=== PATIENT | female | born 1955 | race Caucasian/White ===

== ENCOUNTER → 2020-02-18 | Outpatient (CLI) | payer MEDICARE ==
--- NOTE | 2020-02-18 17:04 | XR ---
EXAMINATION TYPE: XR chest 2V DATE OF EXAM: 02/18/2020 COMPARISON: NONE HISTORY: Abnormal d-dimer chest pain TECHNIQUE: 2 views FINDINGS: Heart is borderline enlarged. There is no heart failure. Lungs are clear of infiltrate. Tho racic aorta shows some atheromatous change. Bones appear osteopenic. IMPRESSION: No active cardiopulmonary disease.
--- NOTE | 2020-02-18 18:44 | NM ---
EXAMINATION TYPE: NM pul vent and perfuse DATE OF EXAM: 02/18/2020 COMPARISON: NONE HISTORY: TECHNIQUE: Utilizing inhalation of 36.3 mCi Tc 99m DTPA aerosol and intravenous injection of 4.8 mCi of Tc 99m MAA, ventilation and perfusion images are acquired post injection in multiple projections. FINDINGS: There is bilateral upper lobe ventilation abnormality near the lung apices consistent with airway dis ease. I see no significant segmental or subsegmental perfusion defect. The remainder of exam is unrem arkable. IMPRESSION: Exam shows evidence of airway disease in the upper lobes. There is a low probability of pulmonary emb olism.
== END | disposition home or self-care (01) ==
LOC: RADNMMAIN 16:33
PROVIDERS: ATTEND Nurse Practitioner Adult Health
DX: R79.1 Abnormal coagulation profile (principal); R06.00 Dyspnea, unspecified
CPT/HCPCS: 71046; 78582; A9540; A9567

== ENCOUNTER 2022-01-05 09:27 | Day surgery (SDC) | payer MEDICARE ==
[2022-01-04 10:55] VITALS: BMI 25.2
[~2022-01-05 09:27] MED LIST: ACETAMINOPHEN TAB 500 MG TAB PO PRN; DEXAMETHASONE SOD PHOSPHATE 4 MG/ML 1 ML VIAL IV ONE; HEPARIN SODIUM,PORCINE/PF 5,000 UNIT/0.5 ML SYRINGE SQ PRN; LACTATED RINGERS 1,000 ML IV SCH; MIDAZOLAM 2 MG/2 ML VIAL IV PRN; ONDANSETRON 4 MG/2 ML VIAL IVP ONE
[2022-01-05 10:42] LABS: Albumin 4.7 g/dL (3.5-5.0); Calcium 10.4 mg/dL (8.4-10.2); Total Bilirubin 0.8 mg/dL (0.2-1.3); Total Protein 7.7 g/dL (6.3-8.2)
[2022-01-05 10:43] LABS: Potassium 5.1 mmol/L (3.5-5.1)
--- NOTE | 2022-01-05 11:02 | P.GSHP ---
History of Present Illness H&P Date: 01/05/22 Chief Complaint: Renal failure 66-year-old female last seen in the office one year ago. Patient with progressive kidney malfunction now requiring dialysis. Patient is here today for dialysis catheter insertion. No known hernias. Past Medical History Past Medical History: CVA/TIA, Deep Vein Thrombosis (DVT), Eye Disorder, Hyperlipidemia, Hypertension, Myocardial Infarction ([place]), Renal Disease, Seizure Disorder Additional Past Medical History / Comment(s): CVA-2018-NO RESIDUAL PROBLEMS. DVT BILAT LEGS. LEGALLY BLIND R/T PLAQUENIL. HX LUPUS. SEIZURE R/T LUPUS-LAST ONE 4-5 YEARS AGO Last Myocardial Infarction Date:: 2016 History of Any Multi-Drug Resistant Organisms: None Reported Past Surgical History: Heart Catheterization With Stent, Tonsillectomy Additional Past Surgical History / Comment(s): SKIN GRAFT FROM RT ARM TO RT LEG. COLONOSCOPY Past Anesthesia/Blood Transfusion Reactions: No Reported Reaction Date of Last Stent Placement:: 2016 Smoking Status: Former smoker - Past Family History Father Family Medical History: Cancer Medications and Allergies Home Medications Medication Instructions Recorded Confirmed Type Allopurinol [Zyloprim] 100 mg PO DAILY 01/04/22 01/05/22 History Aspirin [Adult Low Dose Aspirin EC] 81 mg PO DAILY 01/04/22 01/04/22 History Atorvastatin [Lipitor] 80 mg PO HS 01/04/22 01/05/22 History Carvedilol [Coreg] 25 mg PO BID 01/04/22 01/05/22 History Clopidogrel [Plavix] 75 mg PO DAILY 01/04/22 01/04/22 History Furosemide [Lasix] 40 mg PO DAILY 01/04/22 01/05/22 History Magnesium Oxide 400 mg PO DAILY 01/04/22 01/05/22 History Metoprolol Tartrate [Lopressor] 50 mg PO DAILY 01/04/22 01/05/22 History Sodium Bicarbonate Tab 650 mg PO BID 01/04/22 01/05/22 History calcitrioL [Calcitriol] 0.25 mcg PO DAILY 01/04/22 01/04/22 History cloNIDine 0.1 MG/24HR PATCH 1 patch TRANSDERM MO 01/04/22 01/05/22 History [Catapres-TTS] hydrALAZINE HCL [Apresoline] 75 mg PO TID 01/04/22 01/05/22 History mycophenolate mofetiL [Cellcept] 500 mg PO BID 01/04/22 01/05/22 History Allergies Allergy/AdvReac Type Severity Reaction Status Date / Time carbamazepine [From Tegretol] Allergy Unknown Verified 01/05/22 09:44 gentamicin Allergy Rash/Hives Verified 01/05/22 09:44 hydroxychloroquine Allergy CAUSED Verified 01/05/22 09:44 [From Plaquenil] BLINDNESS vancomycin Allergy Rash/Hives Verified 01/05/22 09:44 Surgical - Exam Vital Signs Temp Pulse Resp BP Pulse Ox 96.9 F L 62 16 161/69 98 01/05/22 09:57 01/05/22 09:57 01/05/22 09:57 01/05/22 09:57 01/05/22 09:57 Physical exam: General: Well-developed, well-nourished HEENT: Normocephalic, sclerae nonicteric Abdomen: Nontender, nondistended Extremities: No edema Neuro: Alert and oriented Results - Labs 01/05/22 10:09 Abnormal Lab Results - Last 24 Hours (Table) 01/05/22 Range/Units 10:09 Carbon Dioxide 21 L (22-30) mmol/L BUN 78 H (7-17) mg/dL Creatinine 6.30 H (0.52-1.04) mg/dL Calcium 10.4 H (8.4-10.2) mg/dL Diabetes panel 01/05/22 Range/Units 10:09 Sodium 139 (137-145) mmol/L Potassium 5.1 (3.5-5.1) mmol/L Chloride 104 (98-107) mmol/L Carbon Dioxide 21 L (22-30) mmol/L BUN 78 H (7-17) mg/dL Creatinine 6.30 H (0.52-1.04) mg/dL Glucose 96 (74-99) mg/dL Calcium 10.4 H (8.4-10.2) mg/dL AST 27 (14-36) U/L ALT 11 (4-34) U/L Alkaline Phosphatase 76 (38-126) U/L Total Protein 7.7 (6.3-8.2) g/dL Albumin 4.7 (3.5-5.0) g/dL Calcium panel 05/06/22 Range/Units 10:09 Calcium 10.4 H (8.4-10.2) mg/dL Albumin 4.7 (3.5-5.0) g/dL Pituitary panel 01/05/22 Range/Units 10:09 Sodium 139 (137-145) mmol/L Potassium 5.1 (3.5-5.1) mmol/L Chloride 104 (98-107) mmol/L Carbon Dioxide 21 L (22-30) mmol/L BUN 78 H (7-17) mg/dL Creatinine 6.30 H (0.52-1.04) mg/dL Glucose 96 (74-99) mg/dL Calcium 10.4 H (8.4-10.2) mg/dL Adrenal panel 01/05/22 Range/Units 10:09 Sodium 139 (137-145) mmol/L Potassium 5.1 (3.5-5.1) mmol/L Chloride 104 (98-107) mmol/L Carbon Dioxide 21 L (22-30) mmol/L BUN 78 H (7-17) mg/dL Creatinine 6.30 H (0.52-1.04) mg/dL Glucose 96 (74-99) mg/dL Calcium 10.4 H (8.4-10.2) mg/dL Total Bilirubin 0.8 (0.2-1.3) mg/dL AST 27 (14-36) U/L ALT 11 (4-34) U/L Alkaline Phosphatase 76 (38-126) U/L Total Protein 7.7 (6.3-8.2) g/dL Albumin 4.7 (3.5-5.0) g/dL Assessment and Plan (1) Renal failure Narrative/Plan: 66-year-old female with renal failure. We'll proceed with dialysis catheter insertion. Risks of bleeding, infection, poor function, leak, abscess, hernia, peritonitis reviewed. She understands and wishes to proceed. Current Visit: Yes Status: Acute Code(s): N19 - UNSPECIFIED KIDNEY FAILURE SNOMED Code(s): 79474912
[2022-01-05] MEDS ORDERED: BUPIVACAINE (PF) 0.25% 30 ML VIAL SQ ONE ×2 (11:05→11:45)
[2022-01-05] MEDS ORDERED: PROPOFOL 10 MG/ML 20 ML VIAL IV ONE (11:12)
[2022-01-05] MEDS ORDERED: MIDAZOLAM 2 MG/2 ML VIAL ONE (11:12)
[2022-01-05] MEDS ORDERED: fentaNYL (PF) 50 MCG/ML 2 ML AMP ONE (11:12)
[2022-01-05] MEDS ORDERED: LIDOCAINE 2% INJ 20 MG/ML (2 ML VIAL) ONE (11:12)
[2022-01-05] MEDS ORDERED: NALOXONE 0.4 MG/ML 1 ML VIAL IV PRN (12:02)
[2022-01-05] MEDS ORDERED: HYDROcodone/APAP 5-325MG 1 EACH TAB PO PRN (12:02)
--- NOTE | 2022-01-05 12:05 | P.OP ---
Date of Procedure: 01/05/22 Procedure(s) Performed: PREOPERATIVE DIAGNOSIS: Renal failure POSTOPERATIVE DIAGNOSIS: Same PROCEDURE: Peritoneal dialysis catheter insertion SURGEON: Arlene EBL: 10 mL ANESTHESIA: Sedation plus local COMPLICATIONS: None OPERATIVE PROCEDURE: The patient was placed in the operative table in the supine position. The abdomen was prepped and draped in usual sterile fashion. A small vertical incision was made in the left periumbilical location. Dissection down through the subcutaneous tissues took place using electrocautery. The anterior rectus was divided vertically using the scalpel. The rectus was bluntly. The posterior rectus was visualized. An 0 Vicryl pursestring was placed. A small opening in the posterior rectus fascia and peritoneum took place using a Metzenbaum scissors. There were no adhesions to the suture that was placed. The pigtail catheter was advanced into the pelvis over a stylette. No resistance was met. The inner cuff was secured to the fascia using the 0 Vicryl pursestring that was placed. The catheter was tunneled to an exit site in the left lateral lower quadrant. The catheter was connected to the 1 L bag of saline and approximated 800 mL of saline was easily introduced into the peritoneal cavity. The fluid was then allowed to evacuate. The majority of the fluid was returned. The anterior rectus fascia was then reapproximated using a running 0 Vicryl stitch. The subcutaneous tissues reprepped using 3-0 Vicryl sutures and the skin using 4-0 Monocryl sutures. The outpatient dialysis adapter was applied to the end of the catheter. Sterile dressings were then applied after skin glue was placed over the incision. DISPOSITION: Stable to recovery room
[2022-01-05] MEDS: HYDROmorphone 0.5 MG/0.5 ML SYRINGE IVP PRN ×3 (12:18→12:41)
[2022-01-05 12:23] VITALS: TEMP 97.1
[2022-01-05 14:23] VITALS: BP 127/68; PULSE 60; RESP 20
== END 2022-01-05 14:21 | disposition home or self-care (01) ==
LOC: OR 09:27
PROVIDERS: ATTEND Surgery
DX: I12.9 Hypertensive chronic kidney disease with stage 1 through stage 4 chronic kidney disease, or unspecified chronic kidney disease (principal); N18.9 Chronic kidney disease, unspecified; E78.00 Pure hypercholesterolemia, unspecified; E55.9 Vitamin D deficiency, unspecified; I25.10 Atherosclerotic heart disease of native coronary artery without angina pectoris; E05.90 Thyrotoxicosis, unspecified without thyrotoxic crisis or storm; R32 Unspecified urinary incontinence; E78.5 Hyperlipidemia, unspecified; I25.2 Old myocardial infarction; G40.909 Epilepsy, unspecified, not intractable, without status epilepticus; H54.8 Legal blindness, as defined in USA; Z87.891 Personal history of nicotine dependence; Z86.73 Personal history of transient ischemic attack (TIA), and cerebral infarction without residual deficits; Z79.899 Other long term (current) drug therapy; Z79.02 Long term (current) use of antithrombotics/antiplatelets; Z88.1 Allergy status to other antibiotic agents; Z86.718 Personal history of other venous thrombosis and embolism; Z95.5 Presence of coronary angioplasty implant and graft; Z90.89 Acquired absence of other organs; Z80.9 Family history of malignant neoplasm, unspecified
CPT/HCPCS: 80053; 49421; J2250; J1100; J0690; J2405; J3010; J2704; J1170; J1644; J2001

== ENCOUNTER 2023-04-01 19:47 | Emergency (ER) | payer MEDICARE ==
[2023-04-01 19:55] VITALS: RESP 16
--- NOTE | 2023-04-01 21:13 | ED ---
Recheck HPI - General Chief Complaint: Recheck/Abnormal Lab/Rx Stated Complaint: Dialysis port leaking Time Seen by Provider: 04/01/23 20:00 Source: patient, EMS Mode of arrival: EMS Limitations: no limitations - History of Present Illness Initial Comments: 67-year-old female presenting with chief complaint of blocked dialysis port. Patient had port for dialysis placed on Saturday at . Her last dialysis was done on Thursday 03/29. Patient normally receives daily dialysis at [facility]. They were unable to conduct dialysis today. Patient states that the area feels generally sore. No fevers or chills. No difficulty breathing. No abdominal pain, nausea, vomiting. - Related Data Home Medications Medication Instructions Recorded Confirmed Aspirin [Adult Low Dose Aspirin EC] 81 mg PO DAILY 01/04/22 01/04/22 Atorvastatin [Lipitor] 80 mg PO HS 01/04/22 01/05/22 Clopidogrel [Plavix] 75 mg PO DAILY 01/04/22 01/04/22 Furosemide [Lasix] 40 mg PO DAILY 01/04/22 01/05/22 Magnesium Oxide 400 mg PO DAILY 01/04/22 01/05/22 Metoprolol Tartrate [Lopressor] 50 mg PO DAILY 01/04/22 01/05/22 Sodium Bicarbonate Tab 650 mg PO BID 01/04/22 01/05/22 allopurinoL [Zyloprim] 100 mg PO DAILY 01/04/22 01/05/22 calcitrioL [Calcitriol] 0.25 mcg PO DAILY 01/04/22 01/04/22 carvediloL [Coreg] 25 mg PO BID 01/04/22 01/05/22 cloNIDine 0.1 MG/24HR PATCH 1 patch TRANSDERM MO 01/04/22 01/05/22 [Catapres-TTS] hydrALAZINE HCL [Apresoline] 75 mg PO TID 01/04/22 01/05/22 mycophenolate mofetiL [Cellcept] 500 mg PO BID 01/04/22 01/05/22 Previous Rx's Medication Instructions Recorded HYDROcodone/APAP 5-325MG [[place] 1 tab PO Q6HR PRN 3 Days #6 tab 01/05/22 5-325] Allergies Allergy/AdvReac Type Severity Reaction Status Date / Time carbamazepine [From Tegretol] Allergy Unknown Verified 01/05/22 09:44 gentamicin Allergy Rash/Hives Verified 01/05/22 09:44 hydroxychloroquine Allergy CAUSED Verified 01/05/22 09:44 [From Plaquenil] BLINDNESS vancomycin Allergy Rash/Hives Verified 01/05/22 09:44 Review of Systems ROS Statement: Those systems with pertinent positive or pertinent negative responses have been documented in the HPI. ROS Other: All systems not noted in ROS Statement are negative. Past Medical History Past Medical History: CVA/TIA, Deep Vein Thrombosis (DVT), Eye Disorder, Hyperlipidemia, Hypertension, Myocardial Infarction ([place]), Renal Disease, Seizure Disorder Additional Past Medical History / Comment(s): CVA-2018-NO RESIDUAL PROBLEMS. DVT BILAT LEGS. LEGALLY BLIND R/T PLAQUENIL. HX LUPUS. SEIZURE R/T LUPUS-LAST ONE 4-5 YEARS AGO Last Myocardial Infarction Date:: 2016 History of Any Multi-Drug Resistant Organisms: None Reported Past Surgical History: Heart Catheterization With Stent, Tonsillectomy Additional Past Surgical History / Comment(s): SKIN GRAFT FROM RT ARM TO RT LEG. COLONOSCOPY Past Anesthesia/Blood Transfusion Reactions: No Reported Reaction Date of Last Stent Placement:: 2016 Past Psychological History: No Psychological Hx Reported Smoking Status: Former smoker - Past Family History Father Family Medical History: Cancer General Exam Limitations: no limitations General appearance: alert, in no apparent distress Head exam: Present: atraumatic, normocephalic, normal inspection Eye exam: Present: normal appearance, EOMI Neck exam: Present: normal inspection Respiratory exam: Present: normal lung sounds bilaterally. Absent: respiratory distress, wheezes, rales, rhonchi, stridor Cardiovascular Exam: Present: regular rate, normal rhythm, normal heart sounds. Absent: systolic murmur, diastolic murmur, rubs, gallop, clicks Neurological exam: Present: alert, oriented X3, CN II-XII intact Psychiatric exam: Present: normal affect, normal mood Skin exam: Present: warm, dry, intact, normal color. Absent: rash Course Vital Signs 04/01/23 04/01/23 19:50 22:44 Temperature 97.4 F L 97.5 F L Pulse Rate 60 64 Respiratory 16 16 Rate Blood Pressure 119/56 109/58 O2 Sat by Pulse 94 L 100 Oximetry Medical Decision Making - Medical Decision Making Was pt. sent in by a medical professional or institution (CHERELLE Hugo, BUSINESS LIAISON OFFICER, urgent care, hospital, or shelter...) When possible be specific @ -Sent from shelter Did you speak to anyone other than the patient for history (EMS, parent, family, police, friend...)? What history was obtained from this source @ -No Did you review nursing and triage notes (agree or disagree)? Why? @ -I reviewed and agree with nursing and triage notes Were old charts reviewed (outside hosp., previous admission, EMS record, old EKG, old radiological studies, urgent care reports/EKG's, shelter records)? Report findings @ -No old charts were reviewed Differential Diagnosis (chest pain, altered mental status, abdominal pain women, abdominal pain men, vaginal bleeding, weakness, fever, dyspnea, syncope, headache, dizziness, GI bleed, back pain, seizure, CVA, palpatations, mental health, musculoskeletal)? @ -not applicable EKG interpreted by me (3pts min.). @ -As above X-rays interpreted by me (1pt min.). @ -None done CT interpreted by me (1pt min.). @ -None done U/S interpreted by me (1pt. min.). @ -None done What testing was considered but not performed or refused? (CT, X-rays, U/S, labs)? Why? @ -None What meds were considered but not given or refused? Why? @ -None Did you discuss the management of the patient with other professionals (professionals i.e. CHERELLE Hugo, BUSINESS LIAISON OFFICER, lab, RT, psych nurse, social media strategist, visitor use assistant, teacher, security officers and guards, case briefer)? Give summary @ -I spoke with vascular surgeon on-call Dr. Miller who advised that the block port should trial TPA, the patient's labs should determine if she is admitted or discharged back home Was smoking cessation discussed for >3mins.? @ -No Was critical care preformed (if so, how long)? @ -No Were there social determinants of health that impacted care today? How? (Homelessness, low income, unemployed, alcoholism, drug addiction, transportation, low edu. Level, literacy, decrease access to med. care, usp, rehab)? @ -No Was there de-escalation of care discussed even if they declined (Discuss DNR or withdrawal of care, Hospice)? DNR status @ -No What co-morbidities impacted this encounter? (DM, HTN, Smoking, COPD, CAD, Canc er, CVA, ARF, Chemo, Hep., AIDS, mental health diagnosis, sleep apnea, morbid obesity)? @ -None Was patient admitted / discharged? Hospital course, mention meds given and route, prescriptions, significant lab abnormalities, going to OR and other pertinent info. @ -67-year-old female presenting with chief complaint of blocked dialysis port. Report was put in on Saturday at [facility]. She has not received dialysis since Saturday, normally receives daily dialysis at assisted living. On inspection there appears to be clotted blood and gauze over the port and on the skin. Attempt was made to clear any blockage in the dialysis port using alteplase, however there was sufficient return without administering Cathflo. Cathflo was not administered. Lab work shows evidence of hyponatremia with sodium of 120, potassium 5.3. Likely due to the patient's need for dialysis which she will receive tomorrow. BUN 85 and creatinine 16.6. Hemoglobin 7.8. No baseline values available for comparison. Vital signs are stable. Patient w ill be discharged back to [facility] for dialysis tomorrow. She is agreeable with this plan. I discussed this case with my attending Dr. Poe Undiagnosed new problem with uncertain prognosis? @ -No Drug Therapy requiring intensive monitoring for toxicity (Heparin, Nitro, Insulin, Cardizem)? @ -No Were any procedures done? @ -No Diagnosis/symptom? @ -Port-A-Cath in place, hyponatremia Acute, or Chronic, or Acute on Chronic? @ -Acute Uncomplicated (without systemic symptoms) or Complicated (systemic symptoms)? @ -Uncomplicated Side effects of treatment? @ -No Exacerbation, Progression, or Severe Exacerbation? @ -No Poses a threat to life or bodily function? How? (Chest pain, [place], [place], pneumonia, PE, COPD, DKA, ARF, appy, cholecystitis, CVA, Diverticulitis, Homicidal, S uicidal, threat to staff... and all critical care pts) @ - - Lab Data Result diagrams: 04/01/23 21:30 04/01/23 21:30 Lab Results 04/01/23 04/01/23 Range/Units 21:30 21:30 WBC 7.1 (3.8-10.6) k/uL RBC 2.50 L (3.80-5.40) m/uL Hgb 7.8 L (11.4-16.0) gm/dL Hct 22.6 L (34.0-46.0) % MCV 90.4 (80.0-100.0) fL MCH 31.3 (25.0-35.0) pg MCHC 34.6 (31.0-37.0) g/dL RDW 13.5 (11.5-15.5) % Plt Count 104 L (150-450) k/uL MPV 8.2 Neutrophils % 71 % Lymphocytes % 18 % Monocytes % 7 % Eosinophils % 2 % Basophils % 0 % Neutrophils # 5.0 (1.3-7.7) k/uL Lymphocytes # 1.3 (1.0-4.8) k/uL Monocytes # 0.5 (0-1.0) k/uL Eosinophils # 0.1 (0-0.7) k/uL Basophils # 0.0 (0-0.2) k/uL Sodium 120 L (137-145) mmol/L Potassium 5.3 H (3.5-5.1) mmol/L Chloride 83 L (98-107) mmol/L Carbon Dioxide 24 (22-30) mmol/L Anion Gap 13 mmol/L BUN 85 H (7-17) mg/dL Creatinine 16.66 H* (0.52-1.04) mg/dL Est GFR (CKD-EPI)AfAm 2 (>60 ml/min/1.73 sqM) Est GFR (CKD-EPI)NonAf 2 (>60 ml/min/1.73 sqM) Glucose 92 (74-99) mg/dL Calcium 9.0 (8.4-10.2) mg/dL Total Bilirubin 0.4 (0.2-1.3) mg/dL AST 46 H (14-36) U/L ALT 24 (4-34) U/L Alkaline Phosphatase 96 (38-126) U/L Total Protein 4.9 L (6.3-8.2) g/dL Albumin 2.7 L (3.5-5.0) g/dL Disposition Clinical Impression: Port-A-Cath in place, Hyponatremia Disposition: HOME SELF-CARE Condition: Fair Instructions (If sedation given, give patient instructions): Hyponatremia (ED) Additional Instructions: Follow-up with your surgical team and PCP. Report back to ER with any new or worsening symptoms. Is patient prescribed a controlled substance at d/c from ED?: No Referrals: Durga Negrete MD [Primary Care Provider] - 1-2 days Time of Disposition: 22:26
[2023-04-01] MEDS: ALTEPLASE 2 MG VIAL (CATHFLO) IV STA ×4 (21:32→21:38)
[2023-04-01 21:36] LABS: Basophils % (A) 0 %; Eosinophils # (A) 0.1 k/uL (0-0.7); Eosinophils % (A) 2 %; HCT 22.6 % (34.0-46.0); HGB 7.8 gm/dL (11.4-16.0); Lymphocytes # (A) 1.3 k/uL (1.0-4.8); Lymphocytes % (A) 18 %; MCH 31.3 pg (25.0-35.0); MCHC 34.6 g/dL (31.0-37.0); MCV 90.4 fL (80.0-100.0); Mean Platelet Volume 8.2; Monocytes # (A) 0.5 k/uL (0-1.0); Monocytes % (A) 7 %; Neutrophils % (A) 71 %; Platelet Count 104 k/uL (150-450); RDW 13.5 % (11.5-15.5); WBC 7.1 k/uL (3.8-10.6)
[2023-04-01 21:44] LABS: ALT 24 U/L (4-34); AST 46 U/L (14-36); Albumin 2.7 g/dL (3.5-5.0); Alkaline Phosphatase 96 U/L (38-126); Anion Gap 13 mmol/L; Blood Urea Nitrogen 85 mg/dL (7-17); Carbon Dioxide 24 mmol/L (22-30); Chloride 83 mmol/L (98-107); Glucose 92 mg/dL (74-99); Potassium 5.3 mmol/L (3.5-5.1); Sodium 120 mmol/L (137-145); Total Bilirubin 0.4 mg/dL (0.2-1.3); Total Protein 4.9 g/dL (6.3-8.2)
[2023-04-01 21:50] LABS: African American GFR (CKD) 2 (>60 ml/min/1.73 sqM); Non-African American GFR(CKD) 2 (>60 ml/min/1.73 sqM)
[2023-04-01 22:45] VITALS: BP 109/58; PULSE 64; TEMP 97.5
== END 2023-04-01 23:30 | disposition home or self-care (01) ==
LOC: EC 19:47
DX: Z45.2 Encounter for adjustment and management of vascular access device (principal); E87.1 Hypo-osmolality and hyponatremia; E78.5 Hyperlipidemia, unspecified; I10 Essential (primary) hypertension; I25.2 Old myocardial infarction; Z86.73 Personal history of transient ischemic attack (TIA), and cerebral infarction without residual deficits; Z86.718 Personal history of other venous thrombosis and embolism; Z87.891 Personal history of nicotine dependence; Z88.8 Allergy status to other drugs, medicaments and biological substances; Z88.1 Allergy status to other antibiotic agents; Z79.82 Long term (current) use of aspirin; Z79.02 Long term (current) use of antithrombotics/antiplatelets; Z79.624 Long term (current) use of inhibitors of nucleotide synthesis; Z99.2 Dependence on renal dialysis
CPT/HCPCS: 36415; 80053; 85025; 99284

== ENCOUNTER 2023-09-29 01:55 | Observation (INO) | payer MEDICARE ==
[~2023-09-29 01:55] MED LIST changes: -ACETAMINOPHEN TAB 500 MG TAB PO PRN; -DEXAMETHASONE SOD PHOSPHATE 4 MG/ML 1 ML VIAL IV ONE; +DIALYSIS (PERIT 1.5%) 2,500 ML 30 G/2,000 ML BAG INTRAPERIT SCH; -HEPARIN SODIUM,PORCINE/PF 5,000 UNIT/0.5 ML SYRINGE SQ PRN; -LACTATED RINGERS 1,000 ML IV SCH; -MIDAZOLAM 2 MG/2 ML VIAL IV PRN; -ONDANSETRON 4 MG/2 ML VIAL IVP ONE
[2023-09-29] MEDS ORDERED: NALOXONE 0.4 MG/ML 1 ML VIAL IV PRN (02:06)
--- NOTE | 2023-09-29 02:10 | ED ---
General Adult HPI - General Chief complaint: Seizure Stated complaint: Neuro deficits Time Seen by Provider: 09/29/23 01:58 Source: patient, EMS, RN notes reviewed, old records reviewed Mode of arrival: EMS Limitations: no limitations - History of Present Illness Initial comments: 68-year-old female with remote history of seizure disorder presents for e valuation of seizure. Patient was seen at outside hospital and transferred for neurology consultation. She states it has been many years since she has had a seizure and is not currently taking any medication. Patient feels well at the time my evaluation and does not have any complaints. She had workup including laboratory testing, EKG, and CT imaging. - Related Data Home Medications Medication Instructions Recorded Confirmed Aspirin [Adult Low Dose Aspirin EC] 81 mg PO DAILY 01/04/22 01/04/22 Atorvastatin [Lipitor] 80 mg PO HS 01/04/22 01/05/22 Clopidogrel [Plavix] 75 mg PO DAILY 01/04/22 01/04/22 Furosemide [Lasix] 40 mg PO DAILY 01/04/22 01/05/22 Magnesium Oxide 400 mg PO DAILY 01/04/22 01/05/22 Metoprolol Tartrate [Lopressor] 50 mg PO DAILY 01/04/22 01/05/22 Sodium Bicarbonate Tab 650 mg PO BID 01/04/22 01/05/22 allopurinoL [Zyloprim] 100 mg PO DAILY 01/04/22 01/05/22 calcitrioL 0.25 mcg PO DAILY 01/04/22 01/04/22 carvediloL [Coreg] 25 mg PO BID 01/04/22 01/05/22 cloNIDine 0.1 MG/24HR PATCH 1 patch TRANSDERM MO 01/04/22 01/05/22 [Catapres-TTS] hydrALAZINE HCL [Apresoline] 75 mg PO TID 01/04/22 01/05/22 mycophenolate mofetiL [Cellcept] 500 mg PO BID 01/04/22 01/05/22 Previous Rx's Medication Instructions Recorded HYDROcodone/APAP 5-325MG [[place] 1 tab PO Q6HR PRN 3 Days #6 tab 01/05/22 5-325] Allergies Allergy/AdvReac Type Severity Reaction Status Date / Time carbamazepine [From Tegretol] Allergy Unknown Verified 01/05/22 09:44 gentamicin Allergy Rash/Hives Verified 01/05/22 09:44 hydroxychloroquine Allergy CAUSED Verified 01/05/22 09:44 [From Plaquenil] BLINDNESS vancomycin Allergy Rash/Hives Verified 01/05/22 09:44 Review of Systems ROS Statement: Those systems with pertinent positive or pertinent negative responses have been documented in the HPI. ROS Other: All systems not noted in ROS Statement are negative. Past Medical History Past Medical History: CVA/TIA, Deep Vein Thrombosis (DVT), Eye Disorder, Hyperlipidemia, Hypertension, Myocardial Infarction ([place]), Renal Disease, Seizure Disorder Additional Past Medical History / Comment(s): CVA-2018-NO RESIDUAL PROBLEMS. D VT BILAT LEGS. LEGALLY BLIND R/T PLAQUENIL. HX LUPUS. SEIZURE R/T LUPUS-LAST ONE 4-5 YEARS AGO Last Myocardial Infarction Date:: 2016 History of Any Multi-Drug Resistant Organisms: None Reported Past Surgical History: Heart Catheterization With Stent, Tonsillectomy Additional Past Surgical History / Comment(s): SKIN GRAFT FROM RT ARM TO RT LEG. COLONOSCOPY Past Anesthesia/Blood Transfusion Reactions: No Reported Reaction Date of Last Stent Placement:: 2016 Past Psychological History: No Psychological Hx Reported Smoking Status: Former smoker Past Alcohol Use History: None Reported Past Drug Use History: None Reported - Past Family History Father Family Medical History: Cancer General Exam Limitations: no limitations General appearance: alert, in no apparent distress Head exam: Present: atraumatic, normocephalic Eye exam: Present: normal appearance, PERRL Neck exam: Present: normal inspection. Absent: tenderness, meningismus Respiratory exam: Present: normal lung sounds bilaterally. Absent: respiratory distress, wheezes Cardiovascular Exam: Present: regular rate, normal rhythm GI/Abdominal exam: Present: soft. Absent: distended, tenderness Extremities exam: Present: normal inspection, normal capillary refill Neurological exam: Present: alert, oriented X3, CN II-XII intact. Absent: motor sensory deficit Psychiatric exam: Present: normal affect, normal mood Skin exam: Present: warm, dry, intact. Absent: cyanosis, diaphoretic Course Vital Signs 09/29/23 01:59 Temperature 98.5 F Pulse Rate 87 Respiratory 16 Rate Blood Pressure 121/76 O2 Sat by Pulse 95 Oximetry Medical Decision Making - Medical Decision Making Was pt. sent in by a medical professional or institution (, PA, COMPRESSOR MECHANIC, urgent care, hospital, or long term...) When possible be specific @ -Sent from [facility] Did you speak to anyone other than the patient for history (EMS, parent, family, police, friend...)? What history was obtained from this source @ -No Did you review nursing and triage notes (agree or disagree)? Why? @ -I reviewed and agree with nursing and triage notes Were old charts reviewed (outside hosp., previous admission, EMS record, old EKG, old radiological studies, urgent care reports/EKG's, long term records)? Report findings @ -No old charts were reviewed Differential Diagnosis (chest pain, altered mental status, abdominal pain women, abdominal pain men, vaginal bleeding, weakness, fever, dyspnea, syncope, hea dache, dizziness, GI bleed, back pain, seizure, CVA, palpatations, mental health, musculoskeletal)? @ -[Differential Seizure: Recurrent seizure disorder, febrile seizure, alcohol withdrawal, stimulants, meningitis, encephalitis, intercranial hemorrhage, intracranial tumor, stroke, eclampsia, thyrotoxicosis, hypocalcemia, hyponatremia, hypernatremia, hypomagnesemia, psychogenic, this is not meant to be an all-inclusive list. EKG interpreted by me (3pts min.). @ -As above X-rays interpreted by me (1pt min.). @ -None done CT interpreted by me (1pt min.). @ -None done U/S interpreted by me (1pt. min.). @ -None done What testing was considered but not performed or refused? (CT, X-rays, U/S, labs)? Why? @ -None What meds were considered but not given or refused? Why? @ -None Did you discuss the management of the patient with other professionals (professionals i.e. , PA, COMPRESSOR MECHANIC, lab, RT, psych nurse, drug abuse social worker, internet project manager, teacher, aerospace engineer officer armament, field case manager)? Give summary @ -No Was smoking cessation discussed for >3mins.? @ -No Was critical care preformed (if so, how long)? @ -No Were there social determinants of health that impacted care today? How? (Homelessness, low income, unemployed, alcoholism, drug addiction, transportation, low edu. Level, literacy, decrease access to med. care, group home, rehab)? @ -No Was there de-escalation of care discussed even if they declined (Discuss DNR or withdrawal of care, Hospice)? DNR status @ -No What co-morbidities impacted this encounter? (DM, HTN, Smoking, COPD, CAD, Cancer, CVA, ARF, Chemo, Hep., AIDS, mental health diagnosis, sleep apnea, morbid obesity)? @ -End-stage renal disease, seizure disorder Was patient admitted / discharged? Hospital course, mention meds given and route, prescriptions, significant lab abnormalities, going to OR and other pertinent info. @ -68-year-old female with remote history of seizure with recurrent seizure. Patient sent for neurology consultation. Admitted to [facility], Dr. Slater who is aware with both nephrology and neurology on consult. Undiagnosed new problem with uncertain prognosis? @ -No Drug Therapy requiring intensive monitoring for toxicity (Heparin, Nitro, Insulin, Cardizem)? @ -No Were any procedures done? @ -No Diagnosis/symptom? @ -[Seizure Acute, or Chronic, or Acute on Chronic? @ -Acute Uncomplicated (without systemic symptoms) or Complicated (systemic symptoms)? @ -[default Side effects of treatment? @ -No Exacerbation, Progression, or Severe Exacerbation? @ -No Poses a threat to life or bodily function? How? (Chest pain, [place], [place], pneumonia, PE, COPD, DKA, ARF, appy, cholecystitis, CVA, Diverticulitis, Homicidal, Suicidal, threat to staff... and all critical care pts) @ -Yes, seizure Disposition Clinical Impression: Generalized seizure Disposition: ADMITTED IP TO THIS [facility] Instructions (If sedation given, give patient instructions): Seizure/Epilepsy Discharge Instructions & Follow-Up Is patient prescribed a controlled substance at d/c from ED?: No Referrals: None,Stated [Primary Care Provider] - 1-2 days Time of Disposition: 02:13
--- NOTE | 2023-09-29 02:43 | P.HPIM ---
History of Present Illness H&P Date: 09/29/23 Patient is a 68-year-old female with a PMH of ESRD on peritoneal dialysis, macular degeneration, seizure disorder, history of CVA, and hypertension who presents as a transfer from [facility] where the patient had presented after a seizure episode. The patient recalls being on the toilet and the next thing she knew, she was on the ground. The patient's reportedly witnessed the episode and she had to tonic-clonic like seizures lasting 1 minute each. She reports a longstanding history of seizure disorder for which she was previously taking antiepileptics which were discontinued after she did not have a seizure for several years. Based on chart review, the patient may have previously been taking lamotrigine.She does not recall when she last took her antiepileptics. Reports feeling at her baseline at the time of interview. Denied experiencing headache, visual disturbances, weakness, numbness, tingling. Also denied experiencing chest discomfort, shortness of breath, fever, chills, cough, nausea, vomiting, abdominal pain, diarrhea. Does report feeling somewhat weak over the past few days and somewhat diminished appetite. The patient underwent an extensive evaluation which was all reviewed with WBC count 8.09, hemoglobin of 12.0, platelet count 218, INR 0.97, BUN 43, creatinine 11.33, sodium 133, potassium 3.5, chloride 89, CO2 26, anion gap 18, high- sensitivity troponin [address] brain and cervical spine without contrast revealed chronic ischemic changes with no acute abnormalities. EKG revealed sinus rhythm at 89 bpm with first-degree AV block with Q waves and T wave flattening in inferior leads III and aVF as reviewed by me. ED documentation reviewed and case discussed with ED provider. Review of systems: Pertinent positives and negatives as discussed in HPI, a complete review of systems was performed and all other systems are negative. Physical examination: Vital signs reviewed General: non toxic, no distress, appears at stated age, normal weight Derm: no unusual rashes/lesions, warm Head: atraumatic, normocephalic, symmetric Eyes: EOMI, no lid lag, anicteric sclera, pupils equal round reactive to light ENT: Nose and ears atraumatic Neck: No cervical lymphadenopathy, trachea midline, supple Mouth: no lip lesion, mucus membranes moist Cardiovascular: S1S2 reg, no murmur, positive dorsalis pedis pulse bilateral, no edema Lungs: CTA bilateral, no rhonchi, no rales, no accessory muscle use Abdominal: soft, nontender to palpation, no guarding Ext: muscle strength 5 out of 5 in all 4 extremities grossly, no gross muscle atrophy, no contractures, Neuro: CN II-XI grossly intact, no gross focal neuro deficits Psych: Alert, oriented, appropriate affect Assessment: Tonic-clonic seizure Chronic conditions: ESRD on peritoneal dialysis, history of CVA, hypertension Imaging: CT brain and cervical spine without contrast revealed chronic ischemic changes with no acute abnormalities EKG revealed sinus rhythm at 89 bpm with first- degree AV block with Q waves and T wave flattening in inferior leads III and aVF as reviewed by me. Data Review: The patient underwent an extensive evaluation which was all reviewed with WBC count 8.09, hemoglobin of 12.0, platelet count 218, INR 0.97, BUN 43, creatinine 11.33, sodium 133, potassium 3.5, chloride 89, CO2 26, anion gap 18, high- sensitivity troponin 161 and subsequently 154. Plan: Neurology consult Fall and seizure precautions Start patient on [facility] Nephrology consult for resumption of peritoneal dialysis Continue with home medications once reconciled DVT prophylaxis: Lovenox Subq The patient is admitted with an anticipated less than 2 midnight stay for evaluation of seizure CODE STATUS: Full Code Discussed with: Patient Anticipated discharge place: Home Past Medical History Past Medical History: CVA/TIA, Deep Vein Thrombosis (DVT), Eye Disorder, Hyperlipidemia, Hypertension, Myocardial Infarction ([place]), Renal Disease, Seizure Disorder Additional Past Medical History / Comment(s): CVA-2018-NO RESIDUAL PROBLEMS. DVT BILAT LEGS. LEGALLY BLIND R/T PLAQUENIL. HX LUPUS. SEIZURE R/T LUPUS-LAST ONE 4-5 YEARS AGO Last Myocardial Infarction Date:: 2016 History of Any Multi-Drug Resistant Organisms: None Reported Past Surgical History: Heart Catheterization With Stent, Tonsillectomy Additional Past Surgical History / Comment(s): SKIN GRAFT FROM RT ARM TO RT LEG. COLONOSCOPY Past Anesthesia/Blood Transfusion Reactions: No Reported Reaction Date of Last Stent Placement:: 2016 Past Psychological History: No Psychological Hx Reported Smoking Status: Former smoker Past Alcohol Use History: None Reported Past Drug Use History: None Reported - Past Family History Father Family Medical History: Cancer Medications and Allergies Home Medications Medication Instructions Recorded Confirmed Type Aspirin [Adult Low Dose Aspirin EC] 81 mg PO DAILY 01/04/22 01/04/22 History Atorvastatin [Lipitor] 80 mg PO HS 01/04/22 01/05/22 History Clopidogrel [Plavix] 75 mg PO DAILY 01/04/22 01/04/22 History Furosemide [Lasix] 40 mg PO DAILY 01/04/22 01/05/22 History Magnesium Oxide 400 mg PO DAILY 01/04/22 01/05/22 History Metoprolol Tartrate [Lopressor] 50 mg PO DAILY 01/04/22 01/05/22 History Sodium Bicarbonate Tab 650 mg PO BID 01/04/22 01/05/22 History allopurinoL [Zyloprim] 100 mg PO DAILY 01/04/22 01/05/22 History calcitrioL 0.25 mcg PO DAILY 01/04/22 01/04/22 History carvediloL [Coreg] 25 mg PO BID 01/04/22 01/05/22 History cloNIDine 0.1 MG/24HR PATCH 1 patch TRANSDERM MO 01/04/22 01/05/22 History [Catapres-TTS] hydrALAZINE HCL [Apresoline] 75 mg PO TID 01/04/22 01/05/22 History mycophenolate mofetiL [Cellcept] 500 mg PO BID 01/04/22 01/05/22 History HYDROcodone/APAP 5-325MG [[place] 1 tab PO Q6HR PRN 3 Days #6 tab 01/05/22 Rx 5-325] Allergies Allergy/AdvReac Type Severity Reaction Status Date / Time carbamazepine [From Tegretol] Allergy Unknown Verified 01/05/22 09:44 gentamicin Allergy Rash/Hives Verified 01/05/22 09:44 hydroxychloroquine Allergy CAUSED Verified 01/05/22 09:44 [From Plaquenil] BLINDNESS vancomycin Allergy Rash/Hives Verified 01/05/22 09:44 Physical Exam Vitals: Vital Signs Temp Pulse Resp BP Pulse Ox 09/29/23 01:59 98.5 F 87 16 121/76 95 Intake and Output 09/28/23 09/28/23 09/29/23 14:59 22:59 06:59 Other: Weight 58.967 kg
[2023-09-29] MEDS: levETIRAcetam 500 MG TAB PO SCH ×3 (02:53→20:23)
[2023-09-29] MEDS: ENOXAPARIN 40 MG/0.4 ML SYRINGE SQ SCH (08:47)
[2023-09-29] MEDS ORDERED: HYDROcodone/APAP 5-325MG 1 EACH TAB PO PRN (09:25)
[2023-09-29] MEDS ORDERED: carvediloL 12.5 MG TAB PO SCH (10:00)
[2023-09-29] MEDS ORDERED: hydrALAZINE HCL 25 MG TAB PO SCH (10:00)
[2023-09-29] MEDS ORDERED: FUROSEMIDE 40 MG TAB PO SCH (10:00)
[2023-09-29] MEDS ORDERED: METOPROLOL TARTRATE 50 MG TAB PO SCH (10:00)
[2023-09-29] MEDS ORDERED: CLOPIDOGREL 75 MG TAB PO SCH (10:00)
[2023-09-29] MEDS ORDERED: CALCIUM ACETATE 667 MG TAB PO PRN (11:13)
[2023-09-29] MEDS ORDERED: MIDODRINE 5 MG TAB PO PRN (11:13)
[2023-09-29] MEDS: SODIUM BICARBONATE TAB 650 MG TAB PO SCH ×2 (11:19→20:23)
[2023-09-29] MEDS: ASPIRIN 81 MG PO SCH (11:19)
--- NOTE | 2023-09-29 11:35 | P.NPCON ---
History of Present Illness - Reason for Consult end stage renal disease - History of Present Illness Patient is a 68-year-old female with end-stage renal disease maintained on peritoneal dialysis. Patient also has a history of seizure disorder. Her last seizure was about 2 years ago. Patient presented to [facility] after having had a seizure while she was on the toilet. had witnessed tonic-clonic movements which lasted for about 1 minute. Patient states that she was not taking any antiseizure medications. Patient has history of lupus and is maintained on CellCept. No issues with dialysis. No history of fever chills nausea vomiting or abdominal pain. Review of Systems As per HPI Past Medical History Past Medical History: CVA/TIA, Deep Vein Thrombosis (DVT), Eye Disorder, Hyperlipidemia, Hypertension, Myocardial Infarction ([place]), Renal Disease, Seizure Disorder Additional Past Medical History / Comment(s): CVA-2018-NO RESIDUAL PROBLEMS. DVT BILAT LEGS. LEGALLY BLIND R/T PLAQUENIL. HX LUPUS. SEIZURE R/T LUPUS-LAST ONE 4-5 YEARS AGO Last Myocardial Infarction Date:: 2016 History of Any Multi-Drug Resistant Organisms: None Reported Past Surgical History: Heart Catheterization With Stent, Tonsillectomy Additional Past Surgical History / Comment(s): SKIN GRAFT FROM RT ARM TO RT LEG. COLONOSCOPY Past Anesthesia/Blood Transfusion Reactions: No Reported Reaction Date of Last Stent Placement:: 2016 Past Psychological History: No Psychological Hx Reported Smoking Status: Former smoker Past Alcohol Use History: None Reported Additional Past Alcohol Use History / Comment(s): SMOKED FOR ABOUT 10 MONTHS IN 2011-QUIT Past Drug Use History: None Reported - Past Family History Father Family Medical History: Cancer Medications and Allergies Home Medications Medication Instructions Recorded Confirmed Type Atorvastatin [Lipitor] 80 mg PO HS 01/04/22 09/29/23 History Calcium Acetate [Phoslo] 1,334 mg PO DAILY PRN 09/29/23 09/29/23 History Calcium Acetate [Phoslo] 1,334 mg PO TID-W/MEALS 09/29/23 09/29/23 History FLUoxetine HCL [PROzac] 10 mg PO DAILY 09/29/23 09/29/23 History Furosemide [Lasix] 80 mg PO DAILY 09/29/23 09/29/23 History Lactulose 20 gm PO DAILY PRN 09/29/23 09/29/23 History Megestrol [Megace] 40 mg PO DAILY 09/29/23 09/29/23 History Midodrine [ProAmatine] 5 mg PO DAILY PRN 09/29/23 09/29/23 History busPIRone HCl [Buspar] 5 mg PO BID 09/29/23 09/29/23 History traZODone HCL [Desyrel] 50 mg PO HS 09/29/23 09/29/23 History Allergies Allergy/AdvReac Type Severity Reaction Status Date / Time carbamazepine [From Tegretol] Allergy Unknown Verified 09/29/23 10:56 gentamicin Allergy Rash/Hives Verified 09/29/23 10:56 hydroxychloroquine Allergy CAUSED Verified 09/29/23 10:56 [From Plaquenil] BLINDNESS vancomycin Allergy Rash/Hives Verified 09/29/23 10:56 Physical Exam Vitals: Vital Signs Temp Pulse Pulse Resp BP BP Pulse Ox 09/29/23 08:30 92 19 09/29/23 08:26 97.7 F 92 19 111/72 99 09/29/23 07:00 81 18 106/64 95 09/29/23 06:00 83 18 104/68 95 09/29/23 05:00 77 15 100/64 95 09/29/23 04:48 80 14 100/64 95 09/29/23 03:22 87 18 114/68 96 09/29/23 01:59 98.5 F 87 16 121/76 95 Intake and Output 09/28/23 09/29/23 09/29/23 22:59 06:59 14:59 Other: Voiding Method Toilet Weight 58.967 kg 58.967 kg Patient is comfortable awake alert oriented x 3. No acute distress Examination of the heart S1 and S2 Examination of the lungs bilateral breath sounds are heard Abdomen is soft nontender Examination of lower extremities shows no evidence of edema BOXING INSTRUCTOR exam grossly intact Assessment and Plan Assessment: 1. End-stage renal disease maintained on peritoneal dialysis 2. Seizure episode with previous history of seizures. Neurology has been consulted. 3. History of lupus maintained on Plaquenil and CellCept 4. CKD mineral bone disorder Plan: Maintain peritoneal dialysis with 1.5% solution 2 L every 6 hours. Continue oral Lasix Continue with phosphate binders. Thank you for the consultation. We will continue to follow the patient with you during her hospitalization.
[2023-09-29] MEDS: DIALYSIS (PERIT 1.5%) 2,000 ML 30 G/2,000 ML BAG INTRAPERIT SCH ×2 (13:07→18:01)
[2023-09-29] MEDS: MEGESTROL 40 MG TAB PO SCH (13:09)
[2023-09-29] MEDS: CALCIUM ACETATE 667 MG TAB PO SCH ×2 (13:09→18:01)
[2023-09-29] MEDS: FLUoxetine HCL 10 MG CAP PO SCH (13:09)
[2023-09-29] MEDS: FUROSEMIDE 80 MG TAB PO SCH (13:09)
[2023-09-29] MEDS: busPIRone HCl 5 MG TAB PO SCH ×2 (13:10→20:23)
--- NOTE | 2023-09-29 13:38 | P.PN ---
Subjective Progress Note Date: 09/29/23 Hospital course: Patient is a very pleasant 68-year-old female with a past medical history of ESRD on peritoneal dialysis, CAD with stent, hypertension, hyperlipidemia, lupus, known seizure disorder, history of DVT, and CVA. She presented to the emergency department from [facility] where patient initially presented with reports of witnessed tonic-clonic seizure activity staying approximately 1 minute. Patient does have history of known seizure disorder and was previously taking lamotrigine, however she was weaned off of this medication after being seizure-free for many years. Patient underwent evaluation at [facility] including a CT of the brain and cervical spine which reportedly revealed chronic ischemic changes but negative for acute intracranial process. An EKG was also completed showing sinus mechanism. Patient was transferred to our facility to undergo further evaluation. Patient admitted under our services with consultation to neurology and nephrology. Physical exam: Patient seen and fully evaluated at the bedside this morning. She appeared to be resting comfortably and no signs of acute distress. Patient denied having any headache, lightheadedness, dizziness, chest pain, palpitations, shortness of breath, or experiencing any numbness/tingling/weakness in her extremities. Vital signs reviewed and stable. General: Nontoxic, no distress and appears stated age. Derm: Skin warm and dry, normal coloration for ethnicity. Head: Atraumatic, normocephalic and symmetric. Eyes: EOMs intact, no lid lag, and anicteric sclera Mouth: no lip lesions, mucus membranes moist Cardiovascular: regular rate and rhythm with normal S1S2, no murmur, positive posterior tibial pulses bilaterally, and cap refill < 2 seconds. Lungs: Respirations even, regular, and unlabored on room air. Lungs CTA bilaterally, no rhonchi, no rales, no wheezing, and no accessory muscle usage. Abdominal: soft, nontender to palpation, no guarding, no appreciable organomegaly Ext: ROM intact. No gross muscle atrophy, no edema, no contractures Neuro: Speech clear, face symmetrical and CN II-XII grossly intact with no noted focal neuro deficits Psych: Alert and oriented to person, place, time, and situation. Appropriate and pleasant affect. Assessment and Plan of Care: Seizure activity and patient with known history of seizure disorder -Seizure precautions, aspiration precautions, and fall precautions in place. -Neurology consulted, appreciate recommendations. -Neurochecks every 4 hours. -Telemetry monitoring. -Patient started on Keppra 500 mg every 12 hours ESRD on peritoneal dialysis -Nephrology consulted for continuation and management of peritoneal dialysis. History of CAD status post stenting Hypertension Hyperlipidemia History of CVA -Continue daily medication regimen with aspirin 81 mg daily, atorvastatin 80 mg nightly, Lasix 80 mg daily, and midodrine 5 mg daily as needed for systolic pressure less than 120.. History of Lupus -Previously on Plaquenil and CellCept, however per med rec and pharmacy reports patient is no longer taking these medications. CODE STATUS: Full code DVT prophylaxis: Lovenox Anticipated discharge date: Clinical course to determine Anticipated discharge place: Clinical course to determine Patient was seen independently by Nurse Pracitioner. This document was prepared using [employer] dictation software. Please allow for errors in pr internship, while rare they do occur. Zelalem Hurt NP rendered care for this patient independently, reviewed the findings and plan as documented in the note above. I did not physically speak with or examine the patient on this date. Objective - Vital Signs Vital signs: Vital Signs Temp 97.7 F 09/29/23 08:26 Pulse 92 09/29/23 08:26 Resp 19 09/29/23 08:26 BP 111/72 09/29/23 08:26 Pulse Ox 99 09/29/23 08:26 FiO2 Intake & Output 09/28/23 09/29/23 09/29/23 18:59 06:59 18:59 Weight 58.967 kg
[2023-09-29] MEDS: ATORVASTATIN 80 MG TAB PO SCH (20:23)
[2023-09-29] MEDS: traZODone HCL 50 MG TAB PO SCH (22:07)
[2023-09-29] MEDS ORDERED: ALPRAZolam 0.25 MG TAB PO STA (23:04)
--- NOTE | 2023-09-30 00:26 | P.CNNES ---
History of Present Illness Consult date: 09/29/23 Requesting physician: Norris Medellin Reason for Consult: Seizure History of Present Illness: Patient is a 68-year-old female with previous history of seizure disorder, lupus, ESRD on hemodialysis, came to the hospital by ambulance early this morning at 1:55 AM for breakthrough seizures. Patient does not remember details about her history. I had to speak to patient's on the phone, who provided excellent history. Patient's first seizure occurred in her early 20s when she had a grand mal seizure. She had a couple grand mal seizures, but then subsequently started having petit mal seizures. Patient believes that patient had a blood clotting issue related to control pills made her first seizure occurred. She was on Coumadin for a few years. Patient subsequently used to have seizures about once every other month. Patient does not get any warning before her seizure, and loses awareness. Her describes her seizures as patient shakes, smacks her lips, one hand postures, goes up in the air and then he trembles and the seizure itself lasts for about 20-30 seconds. She has never bitten her tongue, although sometimes she has loss of control of urine. Postictally she is "out of it", falls asleep for about several hours. Patient instructed remember having a seizure. Patient gets headache postictally. Patient believes that when she is tired, she usually gets seizures. Patient states that her seizure causes short-term memory loss. Patient's seizures were well controlled on Lamictal 200 mg twice a day, and use to follow-up with Dr. Randall. Patient's does not remember the medication she has tried, although later mentioned that Keppra was tried but does not know why it was stopped. She was seizure free for 4 years, therefore she was weaned off Lamictal (over 1 month period of time) about 3 years ago. She was doing great, until she had a breakthrough petit mal seizure about 6 months ago, had another one about 6 weeks ago, and then she had 2 seizures back- to-back in a row early this morning, for which patient's called the ambulance and was brought to the [facility]. Outside records showed EKG showed sinus rhythm. Patient's blood pressure on arrival was 102/77. CBC is normal. PT PTT normal. Basic metabolic panel with BUN 43, creatinine 11.33. Sodium 133 potassium 3.5. Troponin 150/<10 CT head revealed atrophy with chronic appearing periventricular white matter ischemic changes. Old left basal ganglia on an old right occipital lobe infarct. CT of the cervical spine showed no acute osseous abnormality evident. Degenerative disc changes mid cervical spine. Retrolisthesis of C4 on C5 and C5 on C6. Suggestion of mild loss of vertebral body height at C5. EMS flowsheet revealed blood pressure of 95/61 pulse rate 102 respiration 12 blood sugar 125 temperature 97.9. Per EMS flowsheet, when they arrived, patient was sitting against the bathroom wall, alert and oriented x 4. Patient stated that she has been feeling weak for the last week. She mentioned that she was sitting on the toilet when she slowly fell forward off the toilet onto the floor. Patient stated she did not hit her head or lost consciousness during the event. Patient denied any head, neck chest or back or abdominal pain. Patient's mentioned that she has history of cardiac history, as well as history of blood clots, lupus and seizures. Patient is currently on dialysis. Patient was taken to [facility]. EMS transfer sheet from [facility] to [facility] revealed that when they arrived at [facility], for interhospital transfer, patient requiring services for her seizures and nephrology services for peritoneal dialysis. It was reported patient has previous seizure history several years ago and was taken off of seizure medications. She went approximately 1 to 2 years without having a seizure until today. Patient sustained 2 generalized seizures [id number] at around 4 PM. Each seizure lasted about 30 seconds with a postictal phase afterwards. Patient currently not on any seizure medications. Patient's vitals at the scene was blood pressure 114/64, pulse 74 respiration 18, saturation 95%. EKG shows sinus rhythm. Patient currently takes Lipitor 80 mg, calcium, trazodone 100 mg, midodrine 5 mg daily, lactulose, calcium, BuSpar, Lasix 80 mg and Prozac 10 mg. Patient was a light smoker, 3-4 cigarettes per day only for a couple years, quit 5-6 years ago. She drinks alcohol very slightly, occasionally uses marijuana. Patient has been using cane for a long time, but has been using walker for the last 3-4 months[address] Patient does not drive for a long time. Patient says that she has history of TIA in July 2023 in which she was hospitalized to [facility]. She has been on aspirin for a long time. Patient's believes that patient has suffered from falls off and on. 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 Patient use to follow-up with Dr. Lua in [place], but now follows up with local antique furniture reproducer. Patient also has coronary artery disease, was previously tried on Plavix after her MRI. Oven Drier Tender has recommended placement of event monitor, but has not been done, because of her sickness. 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), denies blurred vision, denies diplopia, denies pain Ears: deny: decreased hearing, ear discharge Ears, nose, mouth and throat: Denies headache, Denies sore throat, Denies vertigo Cardiovascular: Denies chest pain, Denies lightheadedness, Denies shortness of breath Respiratory: Reports cough, Denies excessive sputum Gastrointestinal: Denies abdominal pain, Denies diarrhea, Denies nausea, Denies vomiting Genitourinary: Denies dysuria, Denies hematuria, Denies mixed incontinence, Den ies urinary frequency Musculoskeletal: Denies low back pain, Denies neck pain Integumentary: Denies pruritus, Denies rash Neurological: Reports as per HPI Psychiatric: Reports depression, Reports memory loss, Denies anxiety Endocrine: Reports fatigue, Reports weight change Hematologic/Lymphatic: Reports easy bruising, Denies easy bleeding Past Medical History Past Medical History: CVA/TIA, Deep Vein Thrombosis (DVT), Eye Disorder, Hyperlipidemia, Hypertension, Myocardial Infarction ([place]), Renal Disease, Seizure Disorder Additional Past Medical History / Comment(s): CVA-2018-NO RESIDUAL PROBLEMS. DVT BILAT LEGS. LEGALLY BLIND R/T PLAQUENIL. HX LUPUS. SEIZURE R/T LUPUS-LAST ONE 4-5 YEARS AGO Last Myocardial Infarction Date:: 2016 History of Any Multi-Drug Resistant Organisms: None Reported Past Surgical History: Heart Catheterization With Stent, Tonsillectomy Additional Past Surgical History / Comment(s): SKIN GRAFT FROM RT ARM TO RT LEG. COLONOSCOPY Past Anesthesia/Blood Transfusion Reactions: No Reported Reaction Date of Last Stent Placement:: 2017 Past Psychological History: No Psychological Hx Reported Smoking Status: Former smoker Past Alcohol Use History: None Reported Additional Past Alcohol Use History / Comment(s): SMOKED FOR ABOUT 10 MONTHS IN 2012-QUIT Past Drug Use History: None Reported - Past Family History Father Family Medical History: Cancer Medications and Allergies Home Medications Medication Instructions Recorded Confirmed Type Atorvastatin [Lipitor] 80 mg PO HS 01/04/22 09/29/23 History Calcium Acetate [Phoslo] 1,334 mg PO DAILY PRN 09/29/23 09/29/23 History Calcium Acetate [Phoslo] 1,334 mg PO TID-W/MEALS 09/29/23 09/29/23 History FLUoxetine HCL [PROzac] 10 mg PO DAILY 09/29/23 09/29/23 History Furosemide [Lasix] 80 mg PO DAILY 09/29/23 09/29/23 History Lactulose 20 gm PO DAILY PRN 09/29/23 09/29/23 History Megestrol [Megace] 40 mg PO DAILY 09/29/23 09/29/23 History Midodrine [ProAmatine] 5 mg PO DAILY PRN 09/29/23 09/29/23 History busPIRone HCl [Buspar] 5 mg PO BID 09/29/23 09/29/23 History traZODone HCL [Desyrel] 50 mg PO HS 09/29/23 09/29/23 History Allergies Allergy/AdvReac Type Severity Reaction Status Date / Time carbamazepine [From Tegretol] Allergy Unknown Verified 09/29/23 10:56 gentamicin Allergy Rash/Hives Verified 09/29/23 10:56 hydroxychloroquine Allergy CAUSED Verified 09/29/23 10:56 [From Plaquenil] BLINDNESS vancomycin Allergy Rash/Hives Verified 09/29/23 10:56 Physical Examination - Vital Signs Vital Signs: Vital Signs Temp Pulse Pulse Resp BP BP Pulse Ox 09/29/23 08:30 92 19 09/29/23 08:26 97.7 F 92 19 111/72 99 09/29/23 07:00 81 18 106/64 95 09/29/23 06:00 83 18 104/68 95 09/29/23 05:00 77 15 100/64 95 09/29/23 04:48 80 14 100/64 95 09/29/23 03:22 87 18 114/68 96 09/29/23 01:59 98.5 F 87 16 121/76 95 Intake and Output 09/28/23 09/29/23 09/29/23 22:59 06:59 14:59 Other: Voiding Method Toilet Weight 58.967 kg 58.967 kg Patient is an elderly female, in no acute distress. Patient is alert awake oriented to time place and person. Patient knows it is September and the year is 2023. She knows that she is in [place] in the hospital in [place]. She knows name of the current president. Speech and language functions are normal. Patient can name and repeat very well. No aphasia or dysarthria. Attention, concentration and fund of knowledge is adequate. Patient appears to have some memory issues, detailed cognitive function testing deferred. On cranial nerve examination, pupils are equal, round and reacting to light, visual lamb are full on confrontation, with no neglect on double simultaneous stimulation. Extraocular muscles are intact with no nystagmus. Face is symmetric, tongue protrudes to the midline. Palatal elevation and sensation normal, hearing and shoulder shrug normal, facial sensation normal. On muscle strength testing, there is left-sided pronation, but no drift. Her strength is normal in arms and legs distally and proximally. Deep tendon reflexes are symmetric and plantars downgoing. Sensory to touch is equal with no neglect on double simultaneous stimulation. Cerebellar function showed mild ataxia for [id number] and [id number] testing only on the left side. Tone and bulk of muscles normal. Gait deferred.. On general examination, there is no carotid bruit or murmur, S1-S2 audible. Chest is clear on consultation. Abdomen is soft nontender. No organomegaly, bowel sounds present. Peripheral pulses are present. No peripheral edema. Assessment and Plan Assessment: * Long-standing history of petit mal (complex partial) seizures, came with breakthrough seizure. Patient has been seizure free for 4 years, therefore stopped taking Lamictal 3 years ago. Patient had a breakthrough seizure 6 months ago, then 6 weeks ago and now she had 2 seizures [id number] early this morning. Patient is not on any antiepileptic medication. * Short-term memory loss, likely due to seizure disorder/epilepsy * Lupus * End-stage renal disease on hemodialysis * History of TIA in July 2023, treated at [facility] * Hypertension * Hyperlipidemia * Coronary artery disease Plan: * Patient needs to be resumed on antiepileptic medication for sure. She has recurrence of seizures in the last 6 months. * Patient's mentions that she was doing well on Lamictal 200 mg twice a day. However Lamictal has to be started slow, and will take time to build up in her system. Patient has been started on Keppra 500 mg twice a day from the ER. Patient is tolerating this medication well. Patient's mentions that she has been on Keppra in the past, but for uncertain reason was discontinued. Ideally, he wants her to go back on Lamictal. However for now we will keep her on Keppra for seizure prophylaxis. * Check EEG in the morning. * Recommend patient follow up with Dr. Reddy, her neurologist. Patient could be switched back to Lamictal from Keppra as an outpatient. * Patient was informed of [place] state law of no driving unless seizure free for 6 months, climbing ladders, operating dangerous machinery or unsupervised swimming. * Dr. Tomasz Palacio will resume neurology service in the morning. Thank you for the consult. Time with Patient: Greater than 30
[2023-09-30] MEDS: DIALYSIS (PERIT 1.5%) 2,500 ML 30 G/2,000 ML BAG INTRAPERIT SCH ×4 (00:38→21:11)
[2023-09-30 08:36] LABS: HCT 35.8 % (37.2-46.3); HGB 11.7 g/dL (12.0-15.0); MCH 27.4 pg (27.0-32.0); MCHC 32.7 g/dL (32.0-37.0); MCV 83.8 FL (80.0-97.0); Mean Platelet Volume 9.5 FL (9.5-12.2); NRBC Per 100 WBC 0 X 10*3/uL (0.00-0.01); Platelet Count 187 X 10*3/uL (140-440); RBC 4.27 X 10*6/uL (4.10-5.20); RDW 13.8 % (11.5-14.5)
[2023-09-30 08:49] LABS: Magnesium 2.4 mg/dL (1.5-2.4)
[2023-09-30] MEDS ORDERED: cloNIDine 0.1 MG/24HR PATCH TRANSDERM SCH (09:00)
--- NOTE | 2023-09-30 09:02 | P.PN ---
Subjective Patient is seen in follow-up for end-stage renal disease. She is maintained on peritoneal dialysis. Undergoing EEG. No problems with PD exchanges. Vital signs are stable. General: No acute distress. HEENT: Head exam is unremarkable. LUNGS: No audible rhonchi or wheezes. HEART: Rate and Rhythm are regular. ABDOMEN: Nontender. EXTREMITITES: No edema. Objective - Vital Signs Vital signs: Vital Signs Temp 98.0 F 09/30/23 00:49 Pulse 86 09/30/23 00:49 Resp 16 09/30/23 00:49 BP 129/90 09/30/23 00:49 Pulse Ox 98 09/30/23 00:49 FiO2 Intake & Output 09/29/23 09/30/23 09/30/23 18:59 06:59 18:59 Intake Total 236 Balance 236 Weight 58.967 kg Intake: Oral 236 Other: Voiding Method Toilet Toilet # Voids 3 1 - Labs CBC & Chem 7: 09/30/23 06:08 Labs: Abnormal Lab Results - Last 24 Hours (Table) 09/30/23 Range/Units 06:08 Hgb 11.7 L (12.0-15.0) g/dL Hct 35.8 L (37.2-46.3) % Assessment and Plan Plan: Assessment: 1. End-stage renal disease maintained on peritoneal dialysis. 2. Seizure disorder being followed by neurology. On Keppra. 3. Chronic kidney disease mineral bone disease maintained on PhosLo. 4. History of lupus. Not on any medication at this time. Plan: Maintain current PD exchanges.
[2023-09-30 09:05] LABS: BUN/Creat Ratio 3.92 Ratio (12.00-20.00); Blood Urea Nitrogen 45.1 mg/dL (9.0-27.0); Glucose 95 mg/dL (70-110)
[2023-09-30 09:06] LABS: ALT 21 U/L (8-44); AST 27 U/L (13-35); Albumin 3.5 g/dL (3.8-4.9); Albumin/Globulin Ratio 1.59 Ratio (1.60-3.17); Alkaline Phosphatase 84 U/L (41-126); Calcium 10.1 mg/dL (8.7-10.3); Carbon Dioxide 27.7 mmol/L (21.6-31.8); Chloride 89 mmol/L (96-109); Globulin 2.2 g/dL (1.6-3.3); Potassium 3.6 mmol/L (3.5-5.5); Sodium 134 mmol/L (135-145); Total Bilirubin 0.3 mg/dL (0.3-1.2); Total Protein 5.7 g/dL (6.2-8.2)
[2023-09-30] MEDS: ENOXAPARIN 40 MG/0.4 ML SYRINGE SQ SCH (09:29)
[2023-09-30] MEDS: FLUoxetine HCL 10 MG CAP PO SCH (09:30)
[2023-09-30] MEDS: ASPIRIN 81 MG PO SCH (09:30)
[2023-09-30] MEDS: CALCIUM ACETATE 667 MG TAB PO SCH ×3 (09:30→18:07)
[2023-09-30] MEDS: levETIRAcetam 500 MG TAB PO SCH ×2 (09:30→19:41)
[2023-09-30] MEDS: busPIRone HCl 5 MG TAB PO SCH ×2 (09:30→19:42)
[2023-09-30] MEDS: SODIUM BICARBONATE TAB 650 MG TAB PO SCH ×2 (09:30→19:41)
[2023-09-30] MEDS: MEGESTROL 40 MG TAB PO SCH (09:32)
[2023-09-30] MEDS: FUROSEMIDE 80 MG TAB PO SCH (09:32)
[2023-09-30] MEDS ORDERED: POTASSIUM CHLORIDE ER 20 MEQ TAB.ER PO STA (14:50)
--- NOTE | 2023-09-30 16:03 | P.PN ---
Subjective Progress Note Date: 09/30/23 Hospital course: Patient is a very pleasant 68-year-old female with a past medical history of ESRD on peritoneal dialysis, CAD with stent, hypertension, hyperlipidemia, lupus, known seizure disorder, history of DVT, and CVA. She presented to the emergency department from [facility] where patient initially presented with reports of witnessed tonic-clonic seizure activity staying approximately 1 minute. Patient does have history of known seizure disorder and was previously taking lamotrigine, however she was weaned off of this medication after being seizure-free for many years. Patient underwent evaluation at [facility] including a CT of the brain and cervical spine which reportedly revealed chronic ischemic changes but negative for acute intracranial process. An EKG was also completed showing sinus mechanism. Patient was transferred to our facility to undergo further evaluation. Patient admitted under our services with consultation to neurology and nephrology. Physical exam: Patient seen and fully evaluated at the bedside this morning. She was resting comfortably and easily awoken upon verbal stimuli. Patient currently denies having any complaints at this time other than her room being cold. Patient was provided with a warm blanket. She denies having any headache, lightheadedness, dizziness, changes in vision or hearing, chest pain or palpitations, shortness of breath, or experiencing any numbness/tingling/weakness in her extremities. Patient had no further episodes of seizure activity since arrival to our facility. She continues on peritoneal dialysis, nephrology following. EEG to be completed this morning. Plans for likely discharge home pending EEG results and clearance from neurology. Vital signs reviewed and stable. General: Nontoxic, no distress and appears stated age. Derm: Skin warm and dry, normal coloration for ethnicity. Head: Atraumatic, normocephalic and symmetric. Eyes: EOMs intact, no lid lag, and anicteric sclera Mouth: no lip lesions, mucus membranes moist Cardiovascular: regular rate and rhythm with normal S1S2, no murmur, positive posterior tibial pulses bilaterally, and cap refill < 2 seconds. Lungs: Respirations even, regular, and unlabored on room air. Lungs CTA bilaterally, no rhonchi, no rales, no wheezing, and no accessory muscle usage. Abdominal: soft, nontender to palpation, no guarding, no appreciable organomegaly Ext: ROM intact. No gross muscle atrophy, no edema, no contractures Neuro: Speech clear, face symmetrical and CN II-XII grossly intact with no noted focal neuro deficits Psych: Alert and oriented to person, place, time, and situation. Appropriate and pleasant affect. Assessment and Plan of Care: Seizure activity and patient with known history of seizure disorder -Seizure precautions, aspiration precautions, and fall precautions in place. -Neurology evaluated recommending EEG. -Neurochecks every 4 hours. -Telemetry monitoring. -Continue Keppra 500 mg every 12 hours pending further recommendations from neurology. ESRD on peritoneal dialysis -Nephrology consulted for continuation and management of peritoneal dialysis. History of CAD status post stenting Hypertension Hyperlipidemia History of CVA -Continue daily medication regimen with aspirin 81 mg daily, atorvastatin 80 mg nightly, Lasix 80 mg daily, and midodrine 5 mg daily as needed for systolic pressure less than 120.. History of Lupus -Previously on Plaquenil and CellCept, however per med rec and pharmacy reports patient is no longer taking these medications. Data reviewed: Vital signs reviewed. Blood pressure 102/66, heart rate 85, respiratory rate 17, temp 97.5 F, SpO2 of 96% on room air. Morning labs reviewed. CBC showing stable normocytic anemia with hemoglobin of 11.7. BMP revealing mild hyponatremia with sodium of 134 and metabolic acidosis with chloride 89, bicarb 27.7, and anion gap of 17.30 with elevated re nal function consistent with patient's known ESRD on peritoneal dialysis with BUN of 45.1, creatinine 11.5, and GFR of 3. Potassium was normal findings at 3.6 and magnesium normal findings at 2.4. Liver profile showing no significant abnormalities. Albumin was low at 3.5. CODE STATUS: Full code DVT prophylaxis: Lovenox Anticipated discharge date: Likely within the next 24 hours pending EEG results. Anticipated discharge place: Home Patient was seen independently by Nurse Pracitioner. This document was prepared using [employer] dictation software. Please allow for errors in stem cutter, while rare they do occur. Objective - Vital Signs Vital signs: Vital Signs Temp 98.0 F 09/30/23 00:49 Pulse 86 09/30/23 00:49 Resp 16 09/30/23 00:49 BP 129/90 09/30/23 00:49 Pulse Ox 98 09/30/23 00:49 FiO2 Intake & Output 09/29/23 09/30/23 09/30/23 18:59 06:59 18:59 Intake Total 236 Balance 236 Weight 58.967 kg Intake: Oral 236 Other: Voiding Method Toilet Toilet # Voids 3 1 - Labs CBC & Chem 7: 09/30/23 06:08 09/30/23 06:08 Labs: Abnormal Lab Results - Last 24 Hours (Table) 09/30/23 Range/Units 06:08 Hgb 11.7 L (12.0-15.0) g/dL Hct 35.8 L (37.2-46.3) %
--- NOTE | 2023-09-30 18:08 | P.PN ---
Subjective Progress Note Date: 09/30/23 I am seeing the patient for the first time. Please refer to Dr. Clancy's notes for further details. Seems that the patient has underlying history of seizure and had breakthrough seizure. She stopped taking Lamictal 3 years ago but seems the patient had breakthrough seizure as 6 month ago than 6 weeks ago then she had 2 seizures [id number]. The patient was not on any antiepileptic prior to this hospital visit. She was started on Keppra 500 mg twice a day. Patient states that that she has not had any further seizure during his hospital visit. I spoke with the patient's nurse and she agreed she has not had any further seizures. She states that she feels cold because her room is cold otherwise the she's doing well. Objective - Vital Signs Vital signs: Vital Signs Temp 98.3 F 09/30/23 15:00 Pulse 91 09/30/23 15:00 Resp 16 09/30/23 15:00 BP 117/71 09/30/23 15:00 Pulse Ox 98 09/30/23 15:00 FiO2 Intake & Output 09/29/23 09/30/23 09/30/23 18:59 06:59 18:59 Intake Total 236 Balance 236 Weight 58.967 kg Intake: Oral 236 Other: Voiding Method Toilet Toilet # Voids 3 1 1 - Exam General: Lying in bed and is not in acute distress. Neuro: Limited because the patient wanted to be covered up in blankets. But the patient is awake alert oriented to self place and time. The patient is following simple commands. No aphasia and no neglect. Pupils are round equal reactive to light. Visual lamb are full. Extra ocular movements intact. No facial weakness. No dysarthria Motor I have to on covert her and again the strength is limited because of her cooperation and she was feeling cold but she was able to lift of bilateral upper extremity above gravity while lower she was not cooperating but was moving bilateral ankles symmetrically. - Labs CBC & Chem 7: 09/30/23 06:08 09/30/23 06:08 Labs: Abnormal Lab Results - Last 24 Hours (Table) 09/30/23 09/30/23 Range/Units 06:08 06:08 Hgb 11.7 L (12.0-15.0) g/dL Hct 35.8 L (37.2-46.3) % Sodium 134 L (135-145) mmol/L Chloride 89 L (96-109) mmol/L Anion Gap 17.30 H (4.00-12.00) mmol/L BUN 45.1 H (9.0-27.0) mg/dL Creatinine 11.5 A* (0.6-1.5) mg/dL Est GFR (CKD-EPI) 3 L (>=60) BUN/Creatinine Ratio 3.92 L (12.00-20.00) Ratio Total Protein 5.7 L (6.2-8.2) g/dL Albumin 3.5 L (3.8-4.9) g/dL Albumin/Globulin Ratio 1.59 L (1.60-3.17) Ratio Assessment and Plan Assessment: * Long-standing history of petit mal (complex partial) seizures, came with breakthrough seizure. Patient has been seizure free for 4 years, therefore stopped taking Lamictal 3 years ago. Patient had a breakthrough seizure 6 months ago, then 6 weeks ago and now she had 2 seizures [id number] early this morning. Patient is not on any antiepileptic medication. * Short-term memory loss, likely due to seizure disorder/epilepsy * Lupus * End-stage renal disease on hemodialysis * History of TIA in July 2023, treated at [place] * Hypertension * Hyperlipidemia * Coronary artery disease Plan: * I agree with Dr. Clancy she needs to be resumed on antiepileptic drugs because of her recurrence of seizures in the last 6 month. * Per Dr. Clancy, patient's mentions that she was doing well on Lamictal 200 mg twice a day. However Lamictal has to be started slow, and will take time to build up in her system. Patient has been started on Keppra 500 mg twice a day from the ER. Patient is tolerating this medication well. Patient's mentions that she has been on Keppra in the past, but for uncertain reason was discontinued. Ideally, he wants her to go back on Lami ctal. However for now we will keep her on Keppra for seizure prophylaxis. I agree with Dr. Clancy that Lamictal needs to be titrated up slowly because of the side effects and for now she is tolerating Keppra 500 mg twice a day well * EEG is completed and pending read. * Recommend patient follow up with Dr. Reddy, her neurologist. Patient could be switched back to Lamictal from [facility] as an outpatient. * Patient was informed of [place] state law of no driving unless seizure free for 6 months, climbing ladders, operating dangerous machinery or unsupervised swimming. The plan is discussed with patient and her nurse. Time with Patient: Less than 30
[2023-09-30] MEDS: ATORVASTATIN 80 MG TAB PO SCH (19:42)
[2023-09-30] MEDS: traZODone HCL 50 MG TAB PO SCH (19:42)
[2023-09-30] MEDS ORDERED: LACTULOSE 20 GM/30 ML CUP PO ONE (22:18)
[2023-10-01] MEDS ORDERED: ALPRAZolam 0.25 MG TAB PO STA (00:12)
--- NOTE | 2023-10-01 02:16 | EEG ---
ELECTROENCEPHALOGRAM REPORT HISTORY: This is a 68-year-old woman with history of seizure who has break-through seizure RELEVANT MEDICATIONS: Keppra. EEG TYPE: This is a routine 21-channel EEG with video EEG using the 10/20 electrode placement system. DESCRIPTION: Wakefulness is obtained. During awake state, the posterior-dominant rhythm consists of low voltage of 9-10 hertz activity that is somewhat poorly modulated and sustained. There is no physiological stage 2 sleep architecture. There is slowing over the left temporal region. INTERICTAL AND ICTAL: There is spike/sharp/polyspike slow wave over the left temporal region. There is no seizure noted during the study. ACTIVATION PROCEDURE: Photic stimulation, photic stimulation did not evoke a posterior driving response. There is no abnormality during the photic stimulation. Hyperventilation is not performed. CLINICAL INTERPRETATION: This is an abnormal routine EEG. The epileptiform discharges over the left temporal region increases risk for seizure as well as status epilepticus. The focal slowing over left temporal is suggestive of focal cerebral dysfunction. Otherwise, there is no seizure noted in the study. Clinical correlation is recommended. MMODL / IJN: [id number] / DUANE
[2023-10-01] MEDS: DIALYSIS (PERIT 1.5%) 2,500 ML 30 G/2,000 ML BAG INTRAPERIT SCH ×2 (03:41→10:20)
[2023-10-01 07:49] VITALS: RESP 16
[2023-10-01] MEDS ORDERED: ENOXAPARIN 30 MG/0.3 ML SYRINGE SQ SCH (09:00)
[2023-10-01] MEDS: SODIUM BICARBONATE TAB 650 MG TAB PO SCH (09:33)
[2023-10-01] MEDS: FLUoxetine HCL 10 MG CAP PO SCH (09:33)
[2023-10-01] MEDS: busPIRone HCl 5 MG TAB PO SCH (09:33)
[2023-10-01] MEDS: CALCIUM ACETATE 667 MG TAB PO SCH ×2 (09:33→12:06)
[2023-10-01] MEDS: levETIRAcetam 500 MG TAB PO SCH (09:33)
[2023-10-01] MEDS: MEGESTROL 40 MG TAB PO SCH (09:33)
[2023-10-01] MEDS: FUROSEMIDE 80 MG TAB PO SCH (09:33)
[2023-10-01] MEDS: ASPIRIN 81 MG PO SCH (09:33)
[2023-10-01 09:36] LABS: Magnesium 2.3 mg/dL (1.5-2.4); Phosphorus 6.4 mg/dL (2.4-5.1)
--- NOTE | 2023-10-01 09:46 | P.DS ---
Providers Date of admission: 09/29/23 02:06 Expected date of discharge: 10/01/23 Attending physician: Preeti Slater MD Consults: 09/29/23 02:06 Consult Physician Routine Consulting Provider: Candelario Hawkins Consult Reason/Comments: ESRD, peritoneal dialysis Do you want consulting provider notified?: Yes Consult Physician Routine Consulting Provider: Wilfred Clancy Consult Reason/Comments: Seizure Do you want consulting provider notified?: Yes Primary care physician: Stated None Hospital Course: Discharge Diagnosis: Seizure activity in patient with known history of seizure disorder. Patient was started on Keppra 500 mg twice daily. She was evaluated by neurologist. EEG was completed showing abnormal routine EKG with epileptiform discharges over the left caodaism increasing risk for seizure as well as status epilepticus and focal slowing over left temporal is suggestive of focal cerebral dysfunction, otherwise there is no seizure noted in the study. Patient cleared from neurology perspective, instructed to continue Keppra 500 mg twice daily and follow-up outpatient with her neurologist, Dr. Reddy for further evaluation and recommended prolonged EEG secondary to the EEG abnormalities as stated above. Patient was informed of [place] state law stating no driving until seizure-free for 6 months and to strongly avoid climbing ladders, operating dangerous or heavy machinery, or unsupervised swimming until seizure-free for 6 months. ESRD on peritoneal dialysis. Continue following with nephrology and continue your scheduled peritoneal dialysis exchanges. History of CAD status post stenting. Continue daily medication regimen with aspirin 81 mg daily, atorvastatin 80 mg nightly, Lasix 80 mg daily, and midodrin e 5 mg daily as needed for systolic pressure less than 120.. Hypertension. Hyperlipidemia. History of CVA. Continue daily medication regimen with aspirin 81 mg daily and atorvastatin 80 mg nightly. History of Lupus. Previously on Plaquenil and CellCept, however per med rec and pharmacy reports patient is no longer taking these medications. Hospital course: Patient is a very pleasant 68-year-old female with a past medical history of ESRD on peritoneal dialysis, CAD with stent, hypertension, hyperlipidemia, lupus, known seizure disorder, history of DVT, and CVA. She presented to the emergency department from [facility] where patient initially presented with reports of witnessed tonic-clonic seizure activity staying approximately 1 minute. Patient does have history of known seizure disorder and was previously taking lamotrigine, however she was weaned off of this medication after being seizure-free for many years. Patient underwent evaluation at [facility] including a CT of the brain and cervical spine which reportedly revealed chronic ischemic changes but negative for acute intracranial process. An EKG was also completed showing sinus mechanism. Patient was transferred to our facility to undergo further evaluation. Patient admitted under our services with consultation to neurology and nephrology. Patient was started on Keppra 500 mg twice daily. Nephrology followed and continued with patient's scheduled PD exchanges. Patient was evaluated by neurologist. EEG was completed showing abnormal routine EKG with epileptiform discharges over the left caodaism increasing risk for seizure as well as status epilepticus and focal slowing over left temporal is suggestive of focal cerebral dysfunction, o therwise there is no seizure noted in the study. Patient cleared from neurology perspective, instructed to continue Keppra 500 mg twice daily and follow-up outpatient with her neurologist, Dr. Rdedy for further evaluation and recommended prolonged EEG secondary to the EEG abnormalities as stated above. Patient was informed of [place] state law stating no driving until seizure-free for 6 months and to strongly avoid climbing ladders, operating dangerous or heavy machinery, or unsupervised swimming until seizure-free for 6 months. Patient has had no further seizure activity since admission. Medically, she is stable at this time, denies having any complaints, questions, or concerns. She is stable for discharge home and instructed she will need to follow-up outpatient with PCP in 3 days and with neurologist in 1 to 2 weeks. Physical exam: Vital signs reviewed and stable. General: Nontoxic, no distress and appears stated age. Derm: Skin warm and dry, normal coloration for ethnicity. Head: Atraumatic, normocephalic and symmetric. Eyes: EOMs intact, no lid lag, and anicteric sclera Mouth: no lip lesions, mucus membranes moist Cardiovascular: regular rate and rhythm with normal S1S2, no murmur, positive posterior tibial pulses bilaterally, and cap refill < 2 seconds. Lungs: Respirations even, regular, and unlabored on room air. Lungs CTA bilaterally, no rhonchi, no rales, no wheezing, and no accessory muscle usage. Abdominal: soft, nontender to palpation, no guarding, no appreciable organomegaly Ext: ROM intact. No gross muscle atrophy, no edema, no contractures Neuro: Speech clear, face symmetrical and CN II-XII grossly intact with no noted focal neuro deficits Psych: Alert and oriented to person, place, time, and situation. Appropriate and pleasant affect. A total of 34 minutes of time were spent preparing this complex discharge summary. Pt was discharged on 10/01/2023 at 8:59 AM. Patient was seen independently by Nurse Practitioner. This document was prepared using [employer] for iPhone and Android dictation software. Please allow for errors in delivery rn while rare they do occur.. Patient Condition at Discharge: Stable Plan - Discharge Summary Discharge Rx Participant: No New Discharge Prescriptions: New levETIRAcetam [Keppra] 500 mg PO Q12HR 90 Days #180 tab Continue Atorvastatin [Lipitor] 80 mg PO HS Calcium Acetate [PhosLo] 1,334 mg PO DAILY PRN PRN Reason: snacks Megestrol [Megace] 40 mg PO DAILY traZODone HCL [Desyrel] 50 mg PO HS Midodrine [ProAmatine] 5 mg PO DAILY PRN PRN Reason: SBP below 120 Lactulose 20 gm PO DAILY PRN PRN Reason: Constipation Calcium Acetate [PhosLo] 1,334 mg PO TID-W/MEALS busPIRone HCl [Buspar] 5 mg PO BID Furosemide [Lasix] 80 mg PO DAILY FLUoxetine HCL [PROzac] 10 mg PO DAILY Discharge Medication List Atorvastatin [Lipitor] 80 mg PO HS 01/04/22 [History] Calcium Acetate [PhosLo] 1,334 mg PO DAILY PRN 09/29/23 [History] Calcium Acetate [PhosLo] 1,334 mg PO TID-W/MEALS 09/29/23 [History] FLUoxetine HCL [PROzac] 10 mg PO DAILY 09/29/23 [History] Furosemide [Lasix] 80 mg PO DAILY 09/29/23 [History] Lactulose 20 gm PO DAILY PRN 09/29/23 [History] Megestrol [Megace] 40 mg PO DAILY 09/29/23 [History] Midodrine [ProAmatine] 5 mg PO DAILY PRN 09/29/23 [History] busPIRone HCl [Buspar] 5 mg PO BID 09/29/23 [History] traZODone HCL [Desyrel] 50 mg PO HS 09/29/23 [History] levETIRAcetam [Keppra] 500 mg PO Q12HR 90 Days #180 tab 09/30/23 [Rx] Follow up Appointment(s)/Referral(s): Fadia Randall MD [REFERRING] - 1 Week Kathi Causey III, MD [STAFF PHYSICIAN] - 3 Days Candelario Hawkins DO [STAFF PHYSICIAN] - 2 Weeks Patient Instructions/Handouts: Seizure/Epilepsy Discharge Instructions & Follow-Up Activity/Diet/Wound Care/Special Instructions: Activity: As tolerated. Take breaks as needed. Diet: Heart healthy and carb consistent diet. Avoid salts, or foods with hidden salts such as canned or boxed foods and frozen dinners. Extra salt makes your heart work harder and traps the fluid in your body for longer. Special Instructions: Take all of your medications as directed and remember to keep all of your doctor's appointments and follow-up as needed. You will need to follow-up outpatient with your neurologist and recommend prolonged EEG secondary to EEG abnormalities discussed with you at bedside showing signs of epileptiform activity. [place] state law stating no driving until seizure free for 6 months. It is also important to avoid climbing ladders, operating dangerous or heavy machinery or unsupervised swimming until seizure free for 6 months. Continue your scheduled peritoneal dialysis exchanges and follow-up with your receiving and processing supervisor in 2 weeks. Thank you for allowing us to participate in your care, it was truly a pleasure having you for our patient!!! Discharge Disposition: HOME SELF-CARE
[2023-10-01 10:12] LABS: BUN/Creat Ratio 3.65 Ratio (12.00-20.00); Blood Urea Nitrogen 41.3 mg/dL (9.0-27.0); Carbon Dioxide 24.4 mmol/L (21.6-31.8); Chloride 93 mmol/L (96-109); Glucose 96 mg/dL (70-110); Potassium 3.5 mmol/L (3.5-5.5); Sodium 134 mmol/L (135-145)
[2023-10-01] MEDS ORDERED: POTASSIUM CHLORIDE ER 20 MEQ TAB.ER PO STA (11:35)
--- NOTE | 2023-10-01 11:35 | P.PN ---
Subjective Patient is seen in follow-up for end-stage renal disease. She is maintained on peritoneal dialysis. Resting in bed. No active complaints. No problems with PD exchanges. Vital signs are stable. General: No acute distress. HEENT: Head exam is unremarkable. LUNGS: No audible rhonchi or wheezes. HEART: Rate and Rhythm are regular. ABDOMEN: Nontender. EXTREMITITES: No edema. Objective - Vital Signs Vital signs: Vital Signs Temp 97.9 F 10/01/23 07:00 Pulse 82 10/01/23 07:00 Resp 16 10/01/23 07:00 BP 108/73 10/01/23 07:00 Pulse Ox 99 10/01/23 07:00 FiO2 Intake & Output 09/30/23 10/01/23 10/01/23 18:59 06:59 18:59 Intake Total 59 200 236 Balance 59 200 236 Intake: Oral 59 200 236 Other: Voiding Method Toilet # Voids 1 0 # Bowel Movements 1 - Labs CBC & Chem 7: 09/30/23 06:08 10/01/23 06:20 Labs: Abnormal Lab Results - Last 24 Hours (Table) 10/01/23 Range/Units 06:20 Sodium 134 L (135-145) mmol/L Chloride 93 L (96-109) mmol/L Anion Gap 16.60 H (4.00-12.00) mmol/L BUN 41.3 H (9.0-27.0) mg/dL Creatinine 11.3 A* (0.6-1.5) mg/dL Est GFR (CKD-EPI) 3 L (>=60) BUN/Creatinine Ratio 3.65 L (12.00-20.00) Ratio Phosphorus 6.4 H (2.4-5.1) mg/dL Assessment and Plan Plan: Assessment: 1. End-stage renal disease maintained on peritoneal dialysis. 2. Seizure disorder being followed by neurology. On Keppra. 3. Chronic kidney disease mineral bone disease maintained on PhosLo. 4. History of lupus. Not on any medication at this time. 5. Hypokalemia from PD losses and Lasix. Magnesium normal. Plan: Maintain current PD exchanges. Replace potassium.
[2023-10-01 12:12] VITALS: BP 110/66; PULSE 90; TEMP 98.5
== END 2023-10-01 13:04 | disposition home or self-care (01) ==
LOC: EC 01:55 → 6NMEDSUR 02:06
PROVIDERS: ADMIT Internal Medicine; ATTEND Internal Medicine
DX: G40.909 Epilepsy, unspecified, not intractable, without status epilepticus (principal); E78.5 Hyperlipidemia, unspecified; M32.9 Systemic lupus erythematosus, unspecified; I12.0 Hypertensive chronic kidney disease with stage 5 chronic kidney disease or end stage renal disease; N18.6 End stage renal disease; I25.10 Atherosclerotic heart disease of native coronary artery without angina pectoris; N25.0 Renal osteodystrophy; E87.6 Hypokalemia; D63.1 Anemia in chronic kidney disease; I25.2 Old myocardial infarction; Z86.718 Personal history of other venous thrombosis and embolism; Z86.73 Personal history of transient ischemic attack (TIA), and cerebral infarction without residual deficits; Z87.891 Personal history of nicotine dependence; Z95.5 Presence of coronary angioplasty implant and graft; Z99.2 Dependence on renal dialysis; Z79.02 Long term (current) use of antithrombotics/antiplatelets; Z79.624 Long term (current) use of inhibitors of nucleotide synthesis; Z79.82 Long term (current) use of aspirin; Z79.899 Other long term (current) drug therapy; Z88.1 Allergy status to other antibiotic agents
CPT/HCPCS: 96372 ×3; 99284; 95816; 97162; 80053; 80048; 83735 ×2; 84100; 85027; G0378 ×3; J1650 ×3; A4722 ×3; S0179 ×3

== ENCOUNTER 2023-10-01 21:36 | Observation (INO) | payer MEDICARE ==
[2023-10-01 21:56] VITALS: TEMP 97.2
--- NOTE | 2023-10-01 22:32 | ED ---
Anxiety HPI - General Source: patient, EMS Mode of arrival: EMS <Antonella Brownlee - Last Filed: 10/01/23 22:30> <Sandra Espinoza - Last Filed: 10/02/23 03:31> - General Chief Complaint: Anxiety Stated Complaint: anxiety Time Seen by Provider: 10/01/23 22:30 - History of Present Illness Initial Comments: 68-year-old female presenting with chief complaint of anxiety. (Antonella Brownlee) Catina is a 68-year-old female with end-stage renal disease on peritoneal dialysis who was recently admitted to the hospital for possible seizure, she was discharged earlier in the day today however upon discharge she reports she's been feeling like she just panicking her heart is racing she can't catch her breath. Patient states that he takes daily antidepressants but no when necessary for anxiety. (Sandra Espinoza) - Related Data Home Medications: Home Medications Medication Instructions Recorded Confirmed Atorvastatin [Lipitor] 80 mg PO HS 01/04/22 09/29/23 Calcium Acetate [PhosLo] 1,334 mg PO DAILY PRN 09/29/23 09/29/23 Calcium Acetate [PhosLo] 1,334 mg PO TID-W/MEALS 09/29/23 09/29/23 FLUoxetine HCL [PROzac] 10 mg PO DAILY 09/29/23 09/29/23 Furosemide [Lasix] 80 mg PO DAILY 09/29/23 09/29/23 Lactulose 20 gm PO DAILY PRN 09/29/23 09/29/23 Megestrol [Megace] 40 mg PO DAILY 09/29/23 09/29/23 Midodrine [ProAmatine] 5 mg PO DAILY PRN 09/29/23 09/29/23 busPIRone HCl [Buspar] 5 mg PO BID 09/29/23 09/29/23 traZODone HCL [Desyrel] 50 mg PO HS 09/29/23 09/29/23 Previous Rx's Medication Instructions Recorded levETIRAcetam [Keppra] 500 mg PO Q12HR 90 Days #180 tab 09/30/23 Allergies/Adverse Reactions: Allergies Allergy/AdvReac Type Severity Reaction Status Date / Time carbamazepine [From Tegretol] Allergy Unknown Verified 10/01/23 21:40 gentamicin Allergy Rash/Hives Verified 10/01/23 21:40 hydroxychloroquine Allergy CAUSED Verified 10/01/23 21:40 [From Plaquenil] BLINDNESS vancomycin Allergy Rash/Hives Verified 10/01/23 21:40 Review of Systems ROS Other: All systems not noted in ROS Statement are negative. <Antonella Brownlee - Last Filed: 10/01/23 22:30> ROS Other: All systems not noted in ROS Statement are negative. <Sandra Espinoza P - Last Filed: 10/02/23 03:31> ROS Statement: Those systems with pertinent positive or pertinent negative responses have been documented in the HPI. Past Medical History Past Medical History: CVA/TIA, Deep Vein Thrombosis (DVT), Eye Disorder, Hyperlipidemia, Hypertension, Myocardial Infarction (IA), Renal Disease, Seizure Disorder Additional Past Medical History / Comment(s): CVA-2018-NO RESIDUAL PROBLEMS. DVT BILAT LEGS. LEGALLY BLIND R/T PLAQUENIL. HX LUPUS. SEIZURE R/T LUPUS-LAST ONE 4-5 YEARS AGO Last Myocardial Infarction Date:: 2016 History of Any Multi-Drug Resistant Organisms: None Reported Past Surgical History: Heart Catheterization With Stent, Tonsillectomy Additional Past Surgical History / Comment(s): SKIN GRAFT FROM RT ARM TO RT LEG. COLONOSCOPY Past Anesthesia/Blood Transfusion Reactions: No Reported Reaction Date of Last Stent Placement:: 2016 Past Psychological History: Anxiety, Depression Smoking Status: Never smoker Past Alcohol Use History: Occasional - Past Family History Father Family Medical History: Cancer <Antonella Brownlee - Last Filed: 10/01/23 22:30> General Exam Limitations: no limitations <Antonella Brownlee - Last Filed: 10/01/23 22:30> General appearance: alert, anxious Eye exam: Present: normal appearance, PERRL ENT exam: Present: normal exam Neck exam: Absent: tenderness Respiratory exam: Absent: respiratory distress Cardiovascular Exam: Present: tachycardia, irregular rhythm GI/Abdominal exam: Present: soft, other (Peritoneal dialysis access). Absent: distended Rectal exam: Present: deferred Neurological exam: Present: alert, oriented X3 Psychiatric exam: Present: anxious Skin exam: Present: warm, dry, intact <Sandra Espinoza - Last Filed: 10/02/23 03:31> - General Exam Comments Initial Comments: Visual Physical Exam Vital signs reviewed General: nontoxic, no acute distress. Head: Normocephalic, atraumatic Eyes: PERRLA, EOMI ENT: Airway patent Chest: Nonlabored breathing Skin: No visual rash, normal skin tone Musculoskeletal: No gross abnormalities (Antonella Brownlee) Course Vital Signs 10/01/23 10/02/23 10/02/23 21:40 00:49 01:50 Temperature 97.2 F L Pulse Rate 124 H 57 L 121 H Respiratory 22 20 22 Rate Blood Pressure 97/68 116/64 147/95 O2 Sat by Pulse 96 98 94 L Oximetry 10/02/23 02:15 Temperature Pulse Rate 122 H Respiratory 18 Rate Blood Pressure 115/77 O2 Sat by Pulse 96 Oximetry Medical Decision Making <Antonella Brownlee - Last Filed: 10/01/23 22:30> - Lab Data Result diagrams: 10/02/23 02:50 - EKG Data -: EKG Interpreted by Me <Sandra Espinoza - Last Filed: 10/02/23 03:31> - Medical Decision Making I performed the quick note portion of this visit electronically signed by Antonella Brownlee PA-C (Antonella Brownlee) Was pt. sent in by a medical professional or institution ([facility], [facility], urgent care, hospital, or [place] [facility] facility...) When possible be specific @ -No Did you speak to anyone other than the patient for history (EMS, parent, family, police, friend...)? What history was obtained from this source @ -No Did you review nursing and triage notes (agree or disagree)? Why? @ -I reviewed and agree with nursing and triage notes Were old charts reviewed (outside hosp., previous admission, EMS record, old EKG, old radiological studies, urgent care reports/EKG's, [place] health [facility] facility records)? Report findings @ -Previous admission was reviewed Differential Diagnosis (chest pain, altered mental status, abdominal pain women, abdominal pain men, vaginal bleeding, weakness, fever, dyspnea, syncope, headache, dizziness, GI bleed, back pain, seizure, CVA, palpatations, mental health)? @ -Differential palpitations EKG interpreted by me (3pts min.). @ -As above X-rays interpreted by me (1pt min.). @ -None done CT interpreted by me (1pt min.). @ -None done U/S interpreted by me (1pt. min.). @ -None done What testing was considered but not performed or refused? (CT, X-rays, U/S, labs)? Why? @ -Echo to be completed upon admission What meds were considered but not given or refused? Why? @ -Was considered but held due to patient having heart rate in the low 1 teens, by mouth medications were started rather than IV Did you discuss the management of the patient with other professionals (professionals i.e. , PA, [facility], lab, RT, psych nurse, social service coordinator, firearms specialist, teacher, horticultural technical officer, case investigator)? Give summary @ -The admitting team Was smoking cessation discussed for >3mins.? @ -No Was critical care preformed (if so, how long)? @ -No Were there social determinants of health that impacted care today? How? (Homelessness, low income, unemployed, alcoholism, drug addiction, transportation, low edu. Level, literacy, decrease access to med. care, fci, rehab)? @ -No Was there de-escalation of care discussed even if they declined (Discuss DNR or withdrawal of care, Hospice)? DNR status @ -No What co-morbidities impacted this encounter? (DM, HTN, Smoking, COPD, CAD, Cancer, CVA, ARF, Chemo, Hep., AIDS, mental health diagnosis, sleep apnea, morbid obesity)? @ -End Stage renal disease Was patient admitted / discharged? Hospital course, mention meds given and route, prescriptions, significant lab abnormalities, going to OR and other pertinent info. @ -Admit Patient was seen and evaluated, patient reported feeling very anxious. Patient was very tearful. She was initially given by mouth Ativan but had no improvement. It was noted the patient was tachycardic and an EKG was obtained which revealed a new onset of A. fib with RVR. Rates in the low 1 teens. By mouth metoprolol and heparin were ordered. Patient will be admitted for further evaluation. Dr Slater accepts admission. Undiagnosed new problem with uncertain prognosis? @ -No Drug Therapy requiring intensive monitoring for toxicity (Heparin, Nitro, Insulin, Cardizem)? @ -Yes - heparin Were any proceduresdoe? @ -[No] Diagnosis/syptom? @ New afib Acute, or Chronic, or Acute on Chronic? @ Acute Uncomplicated (without systemic symptoms) or Complicated (systemic sympoms)? @ -[default] Side effects of treamet? @ -[No] Exacerbation, Progression, or Severe Exacerbtin? @ -[No] Poses a threat to life or bodily function? How? (Chest pain, USA, IA, pneumonia, PE, COPD, DKA, ARF, appy, cholecystitis, CVA, Diverticulitis, Homicidal, Suicidal, threat to staff... and all criticalUs) @ -[No] (Sandra Espinoza) - Lab Data Lab Results 10/02/23 Range/Units 02:50 WBC 9.5 (3.8-10.6) k/uL RBC 4.10 (3.80-5.40) m/uL Hgb 11.7 (11.4-16.0) gm/dL Hct 34.5 (34.0-46.0) % MCV 84.2 (80.0-100.0) fL MCH 28.5 (25.0-35.0) pg MCHC 33.8 (31.0-37.0) g/dL RDW 13.8 (11.5-15.5) % Plt Count 169 (150-450) k/uL MPV 8.0 Neutrophils % 85 % Lymphocytes % 7 % Monocytes % 6 % Eosinophils % 0 % Basophils % 0 % Neutrophils # 8.1 H (1.3-7.7) k/uL Lymphocytes # 0.7 L (1.0-4.8) k/uL Monocytes # 0.5 (0-1.0) k/uL Eosinophils # 0.0 (0-0.7) k/uL Basophils # 0.0 (0-0.2) k/uL - EKG Data EKG Comments: EKG interpreted by me, EKG obtained at 306, any G with a rate of 112 rhythm is a narrow complex irregularly irregular rhythm they're not consistent P waves before each QRS this is concerning for A. fib with RVR. When this EKG is compared to EKG obtained on September 30 the A. fib is new. (Sandra Espinoza) Disposition <Antonella Brownlee - Last Filed: 10/01/23 22:30> Is patient prescribed a controlled substance at d/c from ED?: No <Sandra Espinoza P - Last Filed: 10/02/23 03:31> Clinical Impression: Atrial fibrillation with RVR, New onset a-fib, End stage renal disease, Peritoneal dialysis catheter in place Disposition: ADMITTED IP TO THIS HOSP Instructions (If sedation given, give patient instructions): Generalized Anxiety Disorder (ED) Referrals: Durga Negrete MD [Primary Care Provider] - 1-2 days
[2023-10-02] MEDS ORDERED: LORazepam 1 MG TAB PO STA (01:41)
[2023-10-02] MEDS ORDERED: METOPROLOL TARTRATE 25 MG TAB PO STA (03:11)
[2023-10-02 03:17] LABS: Basophils % (A) 0 %; Eosinophils % (A) 0 %; HCT 34.5 % (34.0-46.0); HGB 11.7 gm/dL (11.4-16.0); Lymphocytes # (A) 0.7 k/uL (1.0-4.8); Lymphocytes % (A) 7 %; MCH 28.5 pg (25.0-35.0); MCHC 33.8 g/dL (31.0-37.0); MCV 84.2 fL (80.0-100.0); Monocytes # (A) 0.5 k/uL (0-1.0); Monocytes % (A) 6 %; Neutrophils # (A) 8.1 k/uL (1.3-7.7); Neutrophils % (A) 85 %; Platelet Count 169 k/uL (150-450); RDW 13.8 % (11.5-15.5); WBC 9.5 k/uL (3.8-10.6)
[2023-10-02] MEDS ORDERED: NALOXONE 0.4 MG/ML 1 ML VIAL IVP PRN (03:17)
[2023-10-02] MEDS ORDERED: ASPIRIN 325 MG TAB PO STA (03:17)
--- NOTE | 2023-10-02 03:30 | P.HPIM ---
History of Present Illness H&P Date: 10/02/23 Patient is a 68-year-old female with a PMH of ESRD on peritoneal dialysis, seizure disorder, history of CVA, macular degeneration, and hypertension who presents to the emergency room with complaints of palpitations and anxiety. Patient reports that her symptoms started this evening suddenly when she woke up from sleep and has been persistent. She also reports mild shortness of breath without chest discomfort. Denied nausea, vomiting, diaphoresis, dizziness. Denies any prior history of such symptoms. Of note, the patient was recently admitted to the hospital from 09/29 - 10/01 for seizure disorder and was discharged home on Keppra 500 mg p.o. twice daily. In the emergency room laboratory evaluation was remarkable for WBC count 9.5, hemoglobin 11.7, sodium 134, potassium 3.5, chloride 93, BUN 41, creatinine 11.3 (at baseline). EKG revealed A-fib with RVR at 112 bpm with T wave inversion in leads V5 and V6 reviewed by me. ED documentation reviewed and case discussed with ED provider. Review of systems: Pertinent positives and negatives as discussed in HPI, a complete review of s ystems was performed and all other systems are negative. Physical examination: Vital signs reviewed General: non toxic, no distress, appears at stated age, normal weight Derm: no unusual rashes/lesions, warm Head: atraumatic, normocephalic, symmetric Eyes: EOMI, no lid lag, anicteric sclera, pupils equal round reactive to light ENT: Nose and ears atraumatic Neck: No cervical lymphadenopathy, trachea midline, supple Mouth: no lip lesion, mucus membranes moist Cardiovascular: Irregularly irregular, no murmur, positive dorsalis pedis pulse bilateral, no edema Lungs: CTA bilateral, no rhonchi, no rales, no accessory muscle use Abdominal: soft, nontender to palpation, no guarding Ext: muscle strength 5 out of 5 in all 4 extremities grossly, no gross muscle atrophy, no contractures, Neuro: CN II-XI grossly intact, no gross focal neuro deficits Psych: Alert, oriented, appropriate affect Assessment: New onset A-fib with RVR Chronic conditions: ESRD on peritoneal dialysis, seizure disorder, history of CVA, macular degeneration, hypertension Imaging: EKG revealed A-fib with RVR at 112 bpm with T wave inversion in leads V5 and V6 reviewed by me. Data Review: In the emergency room laboratory evaluation was remarkable for WBC count 9.5, hemoglobin 11.7, sodium 134, potassium 3.5, chloride 93, BUN 41, creatinine 11.3 (at baseline). Plan: Cardiology consulted Cardiac monitoring Continue with Lopressor 25 mg p.o. twice daily Echocardiogram ordered Follow-up TSH levels Defer initiation of anticoagulation to cardiology service Consider nephrology consult for resumption of hemodialysis if patient not discharged in a.m. Continue with remaining home medications once reconciled DVT prophylaxis: Heparin subq The patient is admitted with an anticipated greater than 2 midnight stay for evaluation of afib CODE STATUS: Full Code Discussed with: Patient Anticipated discharge place: Home Past Medical History Past Medical History: CVA/TIA, Deep Vein Thrombosis (DVT), Eye Disorder, Hyperlipidemia, Hypertension, Myocardial Infarction (PR), Renal Disease, Seizure Disorder Additional Past Medical History / Comment(s): CVA-2018-NO RESIDUAL PROBLEMS. DVT BILAT LEGS. LEGALLY BLIND R/T PLAQUENIL. HX LUPUS. SEIZURE R/T LUPUS-LAST ONE 4-5 YEARS AGO Last Myocardial Infarction Date:: 2016 History of Any Multi-Drug Resistant Organisms: None Reported Past Surgical History: Heart Catheterization With Stent, Tonsillectomy Additional Past Surgical History / Comment(s): SKIN GRAFT FROM RT ARM TO RT LEG. COLONOSCOPY Past Anesthesia/Blood Transfusion Reactions: No Reported Reaction Date of Last Stent Placement:: 2016 Past Psychological History: Anxiety, Depression Smoking Status: Never smoker Past Alcohol Use History: Occasional - Past Family History Father Family Medical History: Cancer Medications and Allergies Home Medications Medication Instructions Recorded Confirmed Type Atorvastatin [Lipitor] 80 mg PO HS 01/04/22 09/29/23 History Calcium Acetate [PhosLo] 1,334 mg PO DAILY PRN 09/29/23 09/29/23 History Calcium Acetate [PhosLo] 1,334 mg PO TID-W/MEALS 09/29/23 09/29/23 History FLUoxetine HCL [PROzac] 10 mg PO DAILY 09/29/23 09/29/23 History Furosemide [Lasix] 80 mg PO DAILY 09/29/23 09/29/23 History Lactulose 20 gm PO DAILY PRN 09/29/23 09/29/23 History Megestrol [Megace] 40 mg PO DAILY 09/29/23 09/29/23 History Midodrine [ProAmatine] 5 mg PO DAILY PRN 09/29/23 09/29/23 History busPIRone HCl [Buspar] 5 mg PO BID 09/29/23 09/29/23 History traZODone HCL [Desyrel] 50 mg PO HS 09/29/23 09/29/23 History levETIRAcetam [Keppra] 500 mg PO Q12HR 90 Days #180 tab 09/30/23 Rx Allergies Allergy/AdvReac Type Severity Reaction Status Date / Time carbamazepine [From Tegretol] Allergy Unknown Verified 10/01/23 21:40 gentamicin Allergy Rash/Hives Verified 10/01/23 21:40 hydroxychloroquine Allergy CAUSED Verified 10/01/23 21:40 [From Plaquenil] BLINDNESS vancomycin Allergy Rash/Hives Verified 10/01/23 21:40 Physical Exam Vitals: Vital Signs Temp Pulse Resp BP Pulse Ox 10/02/23 02:15 122 H 18 115/77 96 10/02/23 01:50 121 H 22 147/95 94 L 10/02/23 00:49 57 L 20 116/64 98 10/01/23 21:40 97.2 F L 124 H 22 97/68 96 Intake and Output 10/01/23 10/01/23 10/02/23 14:59 22:59 06:59 Other: Weight 58.967 kg Results CBC & Chem 7: 10/02/23 02:50 Labs: Abnormal Lab Results - Last 24 Hours (Table) 10/02/23 Range/Units 02:50 Neutrophils # 8.1 H (1.3-7.7) k/uL Lymphocytes # 0.7 L (1.0-4.8) k/uL
[2023-10-02 03:32] LABS: ALT 24 U/L (4-34); AST 46 U/L (14-36); African American GFR (CKD) 4 (>60 ml/min/1.73 sqM); Albumin 3.6 g/dL (3.5-5.0); Alkaline Phosphatase 90 U/L (38-126); Anion Gap 10 mmol/L; Blood Urea Nitrogen 47 mg/dL (7-17); Calcium 10.1 mg/dL (8.4-10.2); Carbon Dioxide 25 mmol/L (22-30); Chloride 95 mmol/L (98-107); Glucose 105 mg/dL (74-99); Non-African American GFR(CKD) 4 (>60 ml/min/1.73 sqM); Sodium 130 mmol/L (137-145); Total Bilirubin 1.1 mg/dL (0.2-1.3); Total Protein 6.5 g/dL (6.3-8.2)
[2023-10-02] MEDS ORDERED: ALPRAZolam 0.25 MG TAB PO STA (03:57)
[2023-10-02 04:55] LABS: Potassium 5.6 mmol/L (3.5-5.1)
[2023-10-02 05:10] LABS: Partial Thromboplastin Time 23.5 sec (22.0-30.0); Prothrombin Time 10.8 sec (10.0-12.5)
[2023-10-02] MEDS ORDERED: HEPARIN SODIUM,PORCINE 5,000 UNIT/ML 1 ML VIAL SQ SCH (08:00)
[2023-10-02] MEDS ORDERED: METOPROLOL TARTRATE 25 MG TAB PO SCH (09:00)
[2023-10-02 11:27] VITALS: BP 101/60; PULSE 80; RESP 16
--- NOTE | 2023-10-02 11:35 | P.NPCON ---
History of Present Illness - Reason for Consult end stage renal disease - History of Present Illness Reason for consultation: End-stage renal disease History of present illness: Patient is a 68-year-old female seen in renal consultation for end-stage renal disease. Patient was seen and examined in the emergency room. Patient was recently discharged from this facility due to a seizure episode and was started on Keppra. Patient came to the hospital due to chest palpitations. She was tachycardic but not in A-fib per cardiology. She received metoprolol. Heart rate is currently controlled. She denies chest pain or shortness of breath. No vomiting or diarrhea. No fever or chills. No problems with PD exchanges. Vital signs are stable. General: No acute distress. HEENT: Head exam is unremarkable. LUNGS: No audible rhonchi or wheezes. HEART: Rate and Rhythm are regular. ABDOMEN: Nontender. EXTREMITITES: No edema. Past Medical History Past Medical History: CVA/TIA, Deep Vein Thrombosis (DVT), Eye Disorder, Hyperlipidemia, Hypertension, Myocardial Infarction (VT), Renal Disease, Seizure Disorder Additional Past Medical History / Comment(s): CVA-2018-NO RESIDUAL PROBLEMS. DVT BILAT LEGS. LEGALLY BLIND R/T PLAQUENIL. HX LUPUS. SEIZURE R/T LUPUS-LAST ONE 4-5 YEARS AGO Last Myocardial Infarction Date:: 2016 History of Any Multi-Drug Resistant Organisms: None Reported Past Surgical History: Heart Catheterization With Stent, Tonsillectomy Additional Past Surgical History / Comment(s): SKIN GRAFT FROM RT ARM TO RT LEG. COLONOSCOPY Past Anesthesia/Blood Transfusion Reactions: No Reported Reaction Date of Last Stent Placement:: 2016 Past Psychological History: Anxiety, Depression Smoking Status: Never smoker Past Alcohol Use History: Occasional - Past Family History Father Family Medical History: Cancer Medications and Allergies Home Medications Medication Instructions Recorded Confirmed Type Atorvastatin [Lipitor] 80 mg PO HS 01/04/22 10/02/23 History Calcium Acetate [PhosLo] 1,334 mg PO DAILY PRN 09/29/23 10/02/23 History Calcium Acetate [PhosLo] 1,334 mg PO TID-W/MEALS 09/29/23 10/02/23 History Furosemide [Lasix] 80 mg PO DAILY 09/29/23 10/02/23 History Lactulose 20 gm PO DAILY PRN 09/29/23 10/02/23 History Megestrol [Megace] 40 mg PO DAILY 09/29/23 10/02/23 History Midodrine [ProAmatine] 5 mg PO DAILY PRN 09/29/23 10/02/23 History busPIRone HCl [Buspar] 5 mg PO BID 09/29/23 10/02/23 History traZODone HCL [Desyrel] 50 mg PO HS 09/29/23 10/02/23 History levETIRAcetam [Keppra] 500 mg PO Q12HR 90 Days #180 tab 09/30/23 10/02/23 Rx FLUoxetine HCL [PROzac] 20 mg PO DAILY #0 10/02/23 10/02/23 Rx Allergies Allergy/AdvReac Type Severity Reaction Status Date / Time carbamazepine [From Tegretol] Allergy Unknown Verified 10/02/23 07:08 gentamicin Allergy Rash/Hives Verified 10/02/23 07:08 hydroxychloroquine Allergy CAUSED Verified 10/02/23 07:08 [From Plaquenil] BLINDNESS vancomycin Allergy Rash/Hives Verified 10/02/23 07:08 Physical Exam Vitals: Vital Signs Temp Pulse Resp BP Pulse Ox 10/02/23 11:11 80 16 101/60 98 10/02/23 09:27 83 18 98/82 94 L 10/02/23 08:00 68 16 110/60 98 10/02/23 07:53 102 H 18 108/70 97 10/02/23 06:14 81 17 91/64 95 10/02/23 05:00 85 18 112/73 94 L 10/02/23 04:00 92 18 115/84 97 10/02/23 02:15 122 H 18 115/77 96 10/02/23 01:50 121 H 22 147/95 94 L 10/02/23 00:49 57 L 20 116/64 98 10/01/23 21:40 97.2 F L 124 H 22 97/68 96 Intake and Output 10/01/23 10/02/23 10/02/23 22:59 06:59 14:59 Other: Weight 58.967 kg Results - Lab Results Most recent lab results Calcium 10.1 mg/dL (8.4-10.2) 10/02/23 02:50 10/02/23 02:50 10/02/23 02:50 Assessment and Plan Plan: Assessment: 1. End-stage renal disease maintained on peritoneal dialysis. 2. Tachycardia with component of anxiety. Improved. Cardiology following. 3. Seizure disorder. Recently started on Keppra by neurology. 4. Hyperkalemia. Hemolyzed sample. This will be repeated. 5. Chronic kidney disease mineral bone disease. 6. History of SLE. Not on any meds at this time. 7. Hyponatremia secondary to chronic kidney disease. Plan: Start PD exchanges with 2 L every 6 hours with 1.5% dextrose solution. Repeat potassium level now. Home meds to be resumed. Thank you for the consultation. I will continue to follow the patient with you during her hospital stay.
[2023-10-02] MEDS ORDERED: DIALYSIS (PERIT 1.5%) 2,000 ML 30 G/2,000 ML BAG INTRAPERIT SCH (12:00)
--- NOTE | 2023-10-02 12:10 | P.DS ---
Providers Date of admission: 10/02/23 05:21 Expected date of discharge: 10/02/23 Attending physician: Preeti Slater MD Consults: 10/02/23 03:18 Consult Physician Routine Consulting Provider: Cardiology Alisa Consult Reason/Comments: Afib with RVR Do you want consulting provider notified?: Yes 10/02/23 07:58 Consult Physician Routine Consulting Provider: Candelario Hawkins Consult Reason/Comments: ESRD Do you want consulting provider notified?: Yes Primary care physician: Durga Cavanaugh [facility] Course: Discharge Diagnosis: Sinus tachycardia Anxiety ESRD on peritoneal dialysis Hospital Course: 68-year-old female with history of ESRD on peritoneal dialysis, CVA, seizure disorder, macular degeneration, hypertension, anxiety presented with palpitations and anxiety. Patient was recently admitted for seizure disorder and was discharged home on Keppra. On initial evaluation, patient was tachycardic, rest of the vital signs were within normal limits. Laboratory analysis showed creatinine elevated consistent with ESRD. TSH within normal limits. Initial EKG showed sinus tachycardia. Patient was given oral metoprolol and oral Ativan and oral Xanax in the ED. Sinus tachycardia improved. Cardiology was consulted as there was concern for possible atrial fibrillation with the RVR. Repeat EKG showed sinus sinus rhythm. Cardiology recommended outpatient event monitor which was placed. Patient being discharged home. Prozac was increased to 20 daily, continue rest of the home medications. Patient to follow-up with PCP for further increases in anxiety medications. Patient to follow-up also follow-up with cardiology and nephrology. Patient seen and examined at bedside. Vital signs reviewed and stable. General: Nontoxic, no distress, appears at stated age Derm: Warm, dry, PD catheter in place Head: Atraumatic, normocephalic, symmetric Eyes: EOMI, no lid lag, anicteric sclera Mouth: No lip lesion, mucus membranes moist Cardiovascular: S1S2 reg, no murmur Lungs: CTA bilateral, no rhonchi, no rales, no accessory muscle use Abdominal: Soft, nontender to palpation, no guarding, no appreciable organomegaly Ext: No gross muscle atrophy, no edema, no contractures Neuro: CN II-XI grossly intact, no focal neuro deficits Psych: Alert, oriented, appropriate affect A total of 33 minutes of time were spent preparing this complex discharge summar y. Patient was discharged on 10/02/2023 at 10: 45. Patient Condition at Discharge: Stable Plan - Discharge Summary New Discharge Prescriptions: Continue Atorvastatin [Lipitor] 80 mg PO HS Calcium Acetate [PhosLo] 1,334 mg PO DAILY PRN PRN Reason: snacks Megestrol [Megace] 40 mg PO DAILY traZODone HCL [Desyrel] 50 mg PO HS Midodrine [ProAmatine] 5 mg PO DAILY PRN PRN Reason: SBP below 120 Lactulose 20 gm PO DAILY PRN PRN Reason: Constipation Calcium Acetate [PhosLo] 1,334 mg PO TID-W/MEALS busPIRone HCl [Buspar] 5 mg PO BID Furosemide [Lasix] 80 mg PO DAILY levETIRAcetam [Keppra] 500 mg PO Q12HR 90 Days #180 tab Changed FLUoxetine HCL [PROzac] 20 mg PO DAILY #0 Discharge Medication List Atorvastatin [Lipitor] 80 mg PO HS 01/04/22 [History] Calcium Acetate [PhosLo] 1,334 mg PO DAILY PRN 09/29/23 [History] Calcium Acetate [PhosLo] 1,334 mg PO TID-W/MEALS 09/29/23 [History] Furosemide [Lasix] 80 mg PO DAILY 09/29/23 [History] Lactulose 20 gm PO DAILY PRN 09/29/23 [History] Megestrol [Megace] 40 mg PO DAILY 09/29/23 [History] Midodrine [ProAmatine] 5 mg PO DAILY PRN 09/29/23 [History] busPIRone HCl [Buspar] 5 mg PO BID 09/29/23 [History] traZODone HCL [Desyrel] 50 mg PO HS 09/29/23 [History] levETIRAcetam [Keppra] 500 mg PO Q12HR 90 Days #180 tab 09/30/23 [Rx] FLUoxetine HCL [PROzac] 20 mg PO DAILY #0 10/02/23 [Rx] Follow up Appointment(s)/Referral(s): Angus Pedro MD [STAFF PHYSICIAN] - 3 Weeks Durga Negrete MD [Primary Care Provider] - 1-2 days Patient Instructions/Handouts: Generalized Anxiety Disorder (ED) Activity/Diet/Wound Care/Special Instructions: Please see cardiology outpatient. Please also see your PCP. You may need further increase in your anxiety medications. Discharge Disposition: HOME SELF-CARE
--- NOTE | 2023-10-02 13:02 | P.CRDCN ---
History of Present Illness Consult date: 10/02/23 Consult reason: atrial fibrillation (RVR) History of present illness: History of present illness: This is a 68-year-old female patient of Dr. Pedro with past medical history of coronary artery disease with prior stenting of the LAD in 2017, ischemic cardiomyopathy and dilated thoracic aorta as well as hypertension, dyslipidemia, valvular heart disease with mitral regurgitation, end-stage renal disease on CAPD. We have been asked to evaluate the patient for atrial fibrillation with RVR. Patient apparently was discharged from the hospital yesterday after she was treated for seizure. Patient was discharged yesterday return to the hospital due to feeling quite anxious. She also had reported chest pain or shortness of breath but denies that now. She denies any palpitations. She does state that she was anxious yesterday. Patient has received Xanax this morning at 2-year-old and is slow to respond to questions. EKG and telemetry was reviewed and patient found to have sinus rhythm with PACs, long MT but no sign of atrial fibrillation. CBC unremarkable. INR 1. Sodium 130, potassium 5.6, chloride 95, CO2 25, BUN 97 creatinine 9.89. TSH 3.07. Home cardiac medications: Atorvastatin 80 mg at bedtime, Lasix 80 mg daily. Review Of Systems: At the time of my evaluation: Constitutional: No fever, no chills. No weakness, fatigue or lethargy. EENT: No headache. No dizziness. Lungs: No shortness of breath, cough, no sputum production. No wheezing. Cardiovascular: No chest pain, no lower extremity edema. No palpitations. No paroxysmal nocturnal dyspnea. No orthopnea. No lightheadedness or dizziness. No syncopal episodes. Abdominal: No abdominal pain. No nausea, vomiting. No diarrhea. Musculoskeletal: No myalgias. No muscle weakness, no frequent falls. Integumentary: No wounds. No rash. No unusual bruising. Neurologic: No aphasia. No facial droop. No change in mentation. Physical examination: Gen: This is a a 68-year-old female resting in bed in no acute distress VS: reviewed blood pressure 101/60, heart rate 80. Afebrile, pulse ox 98% on room air. HEENT: Head is atraumatic, normocephalic. Pupils equal, round. Sclerae is anicteric. NECK: Supple. No JVD. LUNGS: Clear to auscultation. No wheezes or rhonchi. No intercostal retractions. HEART: Regular rate and rhythm. Systolic murmur. ABDOMEN: Soft No tenderness. EXTREMITIES: No pedal edema. No calf tenderness. NEUROLOGICAL: Patient is awake, alert and oriented x3. Assessment: Sinus rhythm with long MT, no evidence of atrial fibrillation on EKGs nor telemetry Known history of coronary artery disease with stenting of the LAD Ischemic cardiomyopathy history Dilated thoracic aorta Hypertension Hyperlipidemia Mitral regurgitation End-stage renal disease on CAPD New diagnosis of seizure activity on last admission Plan: Continue patient's current cardiac medications Schedule patient for event monitor 14 days Patient is cleared for discharge and may follow-up with Dr. Pedro in 3 weeks Thank you kindly for this consultation. Nurse practitioner note has been reviewed, I agree with documented findings and plan of care. Patient was seen and examined. Past Medical History Past Medical History: CVA/TIA, Deep Vein Thrombosis (DVT), Eye Disorder, Hyperlipidemia, Hypertension, Myocardial Infarction (SD), Renal Disease, Seizure Disorder Additional Past Medical History / Comment(s): CVA-2018-NO RESIDUAL PROBLEMS. DVT BILAT LEGS. LEGALLY BLIND R/T PLAQUENIL. HX LUPUS. SEIZURE R/T LUPUS-LAST ONE 4-5 YEARS AGO Last Myocardial Infarction Date:: 2016 History of Any Multi-Drug Resistant Organisms: None Reported Past Surgical History: Heart Catheterization With Stent, Tonsillectomy Additional Past Surgical History / Comment(s): SKIN GRAFT FROM RT ARM TO RT LEG. COLONOSCOPY Past Anesthesia/Blood Transfusion Reactions: No Reported Reaction Date of Last Stent Placement:: 2016 Past Psychological History: Anxiety, Depression Smoking Status: Never smoker Past Alcohol Use History: Occasional - Past Family History Father Family Medical History: Cancer Medications and Allergies Home Medications Medication Instructions Recorded Confirmed Type Atorvastatin [Lipitor] 80 mg PO HS 01/04/22 10/02/23 History Calcium Acetate [PhosLo] 1,334 mg PO DAILY PRN 09/29/23 10/02/23 History Calcium Acetate [PhosLo] 1,334 mg PO TID-W/MEALS 09/29/23 10/02/23 History Furosemide [Lasix] 80 mg PO DAILY 09/29/23 10/02/23 History Lactulose 20 gm PO DAILY PRN 09/29/23 10/02/23 History Megestrol [Megace] 40 mg PO DAILY 09/29/23 10/02/23 History Midodrine [ProAmatine] 5 mg PO DAILY PRN 09/29/23 10/02/23 History busPIRone HCl [Buspar] 5 mg PO BID 09/29/23 10/02/23 History traZODone HCL [Desyrel] 50 mg PO HS 09/29/23 10/02/23 History levETIRAcetam [Keppra] 500 mg PO Q12HR 90 Days #180 tab 09/30/23 10/02/23 Rx FLUoxetine HCL [PROzac] 20 mg PO DAILY #0 10/02/23 10/02/23 Rx Allergies Allergy/AdvReac Type Severity Reaction Status Date / Time carbamazepine [From Tegretol] Allergy Unknown Verified 10/02/23 07:08 gentamicin Allergy Rash/Hives Verified 10/02/23 07:08 hydroxychloroquine Allergy CAUSED Verified 10/02/23 07:08 [From Plaquenil] BLINDNESS vancomycin Allergy Rash/Hives Verified 10/02/23 07:08 Physical Exam Vitals: Vital Signs Temp Pulse Resp BP Pulse Ox 10/02/23 08:00 68 16 110/60 98 10/02/23 07:53 102 H 18 108/70 97 10/02/23 06:14 81 17 91/64 95 10/02/23 05:00 85 18 112/73 94 L 10/02/23 04:00 92 18 115/84 97 10/02/23 02:15 122 H 18 115/77 96 10/02/23 01:50 121 H 22 147/95 94 L 10/02/23 00:49 57 L 20 116/64 98 10/01/23 21:40 97.2 F L 124 H 22 97/68 96 Intake and Output 10/01/23 10/02/23 10/02/23 22:59 06:59 14:59 Other: Weight 58.967 kg Results 10/02/23 02:50 10/02/23 02:50 Cardiac Enzymes 10/02/23 Range/Units 02:50 AST 46 H (14-36) U/L Coagulation 10/02/23 Range/Units 04:37 PT 10.8 (10.0-12.5) sec APTT 23.5 (22.0-30.0) sec CBC 10/02/23 Range/Units 02:50 WBC 9.5 (3.8-10.6) k/uL RBC 4.10 (3.80-5.40) m/uL Hgb 11.7 (11.4-16.0) gm/dL Hct 34.5 (34.0-46.0) % Plt Count 169 (150-450) k/uL Comprehensive Metabolic Panel 10/02/23 Range/Units 02:50 Sodium 130 L (137-145) mmol/L Potassium 5.6 H (3.5-5.1) mmol/L Chloride 95 L (98-107) mmol/L Carbon Dioxide 25 (22-30) mmol/L BUN 47 H (7-17) mg/dL Creatinine 9.89 H* (0.52-1.04) mg/dL Glucose 105 H (74-99) mg/dL Calcium 10.1 (8.4-10.2) mg/dL AST 46 H (14-36) U/L ALT 24 (4-34) U/L Alkaline Phosphatase 90 (38-126) U/L Total Protein 6.5 (6.3-8.2) g/dL Albumin 3.6 (3.5-5.0) g/dL Current Medications Generic Name Dose Route Start Last Admin Trade Name Freq PRN Reason Stop Dose Admin Heparin Sodium (Porcine) 5,000 unit 10/02/23 08:00 10/02/23 07:55 Heparin Sodium,Porcine 5,000 Unit/Ml 1 Ml Vial SQ 5,000 unit Q8HR SHELLEY Administration Metoprolol Tartrate 25 mg 10/02/23 09:00 10/02/23 08:00 Metoprolol Tartrate 25 Mg Tab PO 25 mg BID SHELLEY Administration Naloxone HCl 0.2 mg 10/02/23 03:17 Naloxone 0.4 Mg/Ml 1 Ml Vial IVP Q2M PRN Opioid Reversal Intake and Output 10/01/23 10/02/23 10/02/23 22:59 06:59 14:59 Other: Weight 58.967 kg 10/02/23 02:50 10/02/23 02:50
--- NOTE | 2023-10-02 17:45 | CA ---
Transthoracic Echo Report Name: Catina Jensen Age: 68 Gender: F : 1955 Exam Date: 10/02/2023 08:30 Exam Location: [place] [facility] Ht (in): 64 Wt (lb): 130 Ordering Physician: Sandra Espinoza DO Attending/Referring Phys: [id number] Packaging Engineer Jennifer Hernandez [facility] Procedure CPT: Indications: new afib Cardiac Hx: Technical Quality: Fair Contrast 1: Total Dose (mL): Contrast 2: Total Dose (mL): MEASUREMENTS (Male / Female) Normal Values 2D ECHO LV Diastolic Diameter PLAX 4.3 cm 4.2 - 5.9 / 3.9 - 5.3 cm LV Systolic Diameter PLAX 3.5 cm IVS Diastolic Thickness 0.8 cm 0.6 - 1.0 / 0.6 - 0.9 cm LVPW Diastolic Thickness 0.8 cm 0.6 - 1.0 / 0.6 - 0.9 cm LV Relative Wall Thickness 0.4 LVOT Diameter 2.0 cm LV Diastolic Volume MOD BP 58.3 cm??? 67 - 155 / 56 - 104 cm??? LV Systolic Volume MOD BP 31.1 cm??? 22 - 58 / 19 - 49 cm??? LV Ejection Fraction MOD BP 46.7 % >= 55 % LV Cardiac Index MOD BP 1215.9 cm???/min???m??? LV Diastolic Volume MOD 4C 59.3 cm??? LV Systolic Volume MOD 4C 31.4 cm??? LV Ejection Fraction MOD 4C 47.0 % LV Cardiac Index MOD 4C 1245.2 cm???/min???m??? LV Diastolic Length 4C 7.5 cm LV Systolic Length 4C 6.2 cm LV Diastolic Volume MOD 2C 55.5 cm??? LV Systolic Volume MOD 2C 30.7 cm??? LV Ejection Fraction MOD 2C 44.7 % LV Cardiac Index MOD 2C 1107.3 cm???/min???m??? LV Diastolic Length 2C 7.1 cm LV Systolic Length 2C 6.3 cm Ascending Aorta Diameter 3.7 cm M-MODE Aortic Root Diameter MM 2.6 cm LA Systolic Diameter MM 4.1 cm LA Ao Ratio MM 1.6 AV Cusp Separation MM 1.2 cm DOPPLER AV Peak Velocity 122.1 cm/s AV Peak Gradient 6.0 mmHg AV Mean Velocity 93.7 cm/s AV Mean Gradient 3.8 mmHg AV Velocity Time Integral 25.9 cm LVOT Peak Velocity 82.9 cm/s LVOT Peak Gradient 2.8 mmHg LVOT Velocity Time Integral 16.1 cm LVOT Stroke Volume 48.3 cm??? LVOT Stroke Volume Index 29.6 ml/m??? LVOT Cardiac Index 2153.6 cm???/min???m??? AV Area Cont Eq vti 1.9 cm??? AV Area Cont Eq pk 2.0 cm??? MV Peak Velocity 137.5 cm/s MV Peak Gradient 7.6 mmHg MV Mean Velocity 83.9 cm/s MV Mean Gradient 3.1 mmHg MV Velocity Time Integral 30.6 cm MV Area PHT 4.1 cm??? MR Peak Velocity 554.8 cm/s MR Peak Gradient 123.1 mmHg LV E' Lateral Velocity 8.5 cm/s LV E' Septal Velocity 6.1 cm/s TR Peak Velocity 194.8 cm/s TR Peak Gradient 15.2 mmHg Right Atrial Pressure 3.0 mmHg Pulmonary Artery Systolic Pressu 18.2 mmHg Right Ventricular Systolic Press 18.2 mmHg FINDINGS Left Ventricle Left ventricular cavity size normal. Left ventricular wall thickness normal. Septal hypertrophy. Mildly decreased left ventricular ejection fraction. Left ventricular ejection fraction is estimated at 35-40%. Hypokinetic inferior wall. Hypokinetic septum. Hypokinetic anteroseptum. Right Ventricle Mild right ventricular dilatation. Right Atrium Normal right atrial size. Left Atrium Moderate left atrial dilatation. Mitral Valve Severe mitral annular calcification. Severe mitral regurgitation. Moderately decreased mobility of the mitral valve leaflets. Aortic Valve Aortic valve not well visualized. Thickening of the aortic valve cusps. Aortic valve sclerosis. No aortic regurgitation. Tricuspid Valve Structurally normal tricuspid valve. Mild tricuspid regurgitation. Pulmonic Valve Pulmonic valve not well visualized. Trace pulmonic regurgitation. Pericardium No pericardial effusion. Echo free space anterior to the right ventricle likely represents a fat pad. Aorta Upper normal proximal ascending aorta (tube). CONCLUSIONS Moderately reduced global LV systolic function. LVEF estimated at 35-40% Hypokinetic mid to basal inferolateral wall Calcified and restricted posterior mitral leaflet with severe eccentric mitral regurgitation Aortic valve sclerosis No pericardial effusion Previewed by: Dr Diony Alatorre (Electronically Signed) Final Date: 02 October 2023 17:44
== END 2023-10-02 11:13 | disposition home or self-care (01) ==
LOC: EC 21:36 → 3SCARD 10-02 05:21
PROVIDERS: ADMIT Internal Medicine; ATTEND Internal Medicine
DX: R00.0 Tachycardia, unspecified (principal); F41.9 Anxiety disorder, unspecified; I48.91 Unspecified atrial fibrillation; I12.0 Hypertensive chronic kidney disease with stage 5 chronic kidney disease or end stage renal disease; N18.6 End stage renal disease; E78.5 Hyperlipidemia, unspecified; F32.A Depression, unspecified; I25.10 Atherosclerotic heart disease of native coronary artery without angina pectoris; I25.5 Ischemic cardiomyopathy; I34.0 Nonrheumatic mitral (valve) insufficiency; I77.810 Thoracic aortic ectasia; G40.909 Epilepsy, unspecified, not intractable, without status epilepticus; E87.5 Hyperkalemia; N25.0 Renal osteodystrophy; M32.9 Systemic lupus erythematosus, unspecified; E87.1 Hypo-osmolality and hyponatremia; H35.30 Unspecified macular degeneration; I25.2 Old myocardial infarction; Z86.718 Personal history of other venous thrombosis and embolism; Z86.73 Personal history of transient ischemic attack (TIA), and cerebral infarction without residual deficits; Z95.5 Presence of coronary angioplasty implant and graft; Z99.2 Dependence on renal dialysis; Z79.899 Other long term (current) drug therapy; Z88.1 Allergy status to other antibiotic agents
CPT/HCPCS: 96372; 99285; 36415; 93005; 93306; 93270; 80053; 84443; 85025; 85610; 85730; G0378; J1644

== ENCOUNTER 2023-10-05 23:00 | Emergency (ER) | payer MEDICARE ==
--- NOTE | 2023-10-05 23:25 | ED ---
General Adult HPI - General Chief complaint: Weakness Stated complaint: Fall Time Seen by Provider: 10/05/23 23:09 Source: patient Mode of arrival: ambulatory Limitations: no limitations - History of Present Illness Initial comments: Patient is 68-year-old woman with history of previous seizure disorder who presents with complaint that she had a seizure and fell. Patient states she has had seizures since she was a teenager. She relates that she has different types of seizures. She has had [place] and grand mal seizures. Tonight she was standing when she had a seizure. She states that when this happens she gets weak and falls. She fell tonight. -: hour(s) Location: back Radiation: non-radiation Quality: aching Consistency: constant Improves with: none Worsens with: none Associated Symptoms: other (Anxiety) Treatments Prior to Arrival: none - Related Data Home Medications Medication Instructions Recorded Confirmed Atorvastatin [Lipitor] 80 mg PO HS 01/04/22 10/16/23 Calcium Acetate [PhosLo] 1,334 mg PO DAILY PRN 09/29/23 10/16/23 Calcium Acetate [PhosLo] 1,334 mg PO TID-W/MEALS 09/29/23 10/16/23 Furosemide [Lasix] 80 mg PO DAILY 09/29/23 10/16/23 Lactulose 20 gm PO DAILY PRN 09/29/23 10/16/23 Megestrol [Megace] 40 mg PO DAILY 09/29/23 10/16/23 Midodrine [ProAmatine] 5 mg PO DAILY PRN 09/29/23 10/16/23 busPIRone HCl [Buspar] 5 mg PO BID 09/29/23 10/16/23 traZODone HCL [Desyrel] 50 mg PO HS 09/29/23 10/16/23 Previous Rx's Medication Instructions Recorded levETIRAcetam [Keppra] 500 mg PO Q12HR 90 Days #180 tab 09/30/23 FLUoxetine HCL [PROzac] 20 mg PO DAILY #0 10/02/23 HYDROcodone/APAP 7.5-325MG [[place] 1 each PO Q6HR PRN #12 tab 10/21/23 7.5-325] Allergies Allergy/AdvReac Type Severity Reaction Status Date / Time carbamazepine [From Tegretol] Allergy Unknown Verified 10/16/23 09:06 gentamicin Allergy Rash/Hives Verified 10/16/23 09:06 hydroxychloroquine Allergy CAUSED Verified 10/16/23 09:06 [From Plaquenil] BLINDNESS vancomycin Allergy Rash/Hives Verified 10/16/23 09:06 Review of Systems ROS Statement: Those systems with pertinent positive or pertinent negative responses have been documented in the HPI. ROS Other: All systems not noted in ROS Statement are negative. Constitutional: Denies: fever, chills, weakness Eyes: Denies: vision change Respiratory: Denies: cough, dyspnea Cardiovascular: Denies: chest pain, palpitations Gastrointestinal: Denies: abdominal pain, vomiting, diarrhea Genitourinary: Denies: dysuria, hematuria Musculoskeletal: Reports: as per HPI, back pain Skin: Denies: rash Neurological: Denies: headache, weakness, numbness, confusion Psychiatric: Reports: anxiety Past Medical History Past Medical History: CVA/TIA, Deep Vein Thrombosis (DVT), Eye Disorder, Hyperlipidemia, Hypertension, Myocardial Infarction (SD), Renal Disease, Seizure Disorder Additional Past Medical History / Comment(s): CVA-2018-NO RESIDUAL PROBLEMS. DVT BILAT LEGS. LEGALLY BLIND R/T PLAQUENIL. HX LUPUS. SEIZURE R/T LUPUS-LAST ONE 4-5 YEARS AGO Last Myocardial Infarction Date:: 2016 History of Any Multi-Drug Resistant Organisms: None Reported Past Surgical History: Heart Catheterization With Stent, Tonsillectomy Additional Past Surgical History / Comment(s): SKIN GRAFT FROM RT ARM TO RT LEG. COLONOSCOPY Past Anesthesia/Blood Transfusion Reactions: No Reported Reaction Date of Last Stent Placement:: 2016 Past Psychological History: Anxiety, Depression Smoking Status: Never smoker Past Alcohol Use History: Occasional Past Drug Use History: None Reported - Past Family History Father Family Medical History: Cancer General Exam Limitations: no limitations General appearance: alert, anxious Head exam: Present: atraumatic, normocephalic Eye exam: Present: normal appearance. Absent: scleral icterus, conjunctival injection Neck exam: Present: normal inspection, full ROM. Absent: tenderness Respiratory exam: Present: normal lung sounds bilaterally. Absent: respiratory distress, wheezes, rales, rhonchi, stridor, chest wall tenderness, accessory muscle use Cardiovascular Exam: Present: regular rate, normal rhythm, normal heart sounds. Absent: systolic murmur, diastolic murmur, rubs, gallop GI/Abdominal exam: Present: soft. Absent: distended, tenderness, guarding, rebound, rigid, mass Extremities exam: Present: normal inspection, normal capillary refill. Absent: pedal edema, calf tenderness Back exam: Present: normal inspection Neurological exam: Present: alert, oriented X3, CN II-XII intact. Absent: motor sensory deficit Skin exam: Present: warm, dry, intact, normal color. Absent: rash Course Vital Signs 10/05/23 10/05/23 10/06/23 23:02 23:50 00:22 Temperature 96.9 F L Pulse Rate 53 L 118 H 118 H Respiratory 18 20 20 Rate Blood Pressure 106/88 134/98 131/90 O2 Sat by Pulse 98 99 98 Oximetry 10/06/23 10/06/23 02:55 03:59 Temperature 98.8 F Pulse Rate 110 H 82 Respiratory 16 14 Rate Blood Pressure 116/93 103/63 O2 Sat by Pulse 96 96 Oximetry EKG Findings - EKG Results: EKG: normal axis, normal ST/T - Dysrhythmias: Supraventricular dysrhythmia: atrial fibrillation (Rate 117 bpm) - SD, Pacemaker, Normal: Myocardial infarction: inferior SD (old age indeterminate) (Suspected old inferior infarct based on Q waves.) Medical Decision Making - Medical Decision Making Was pt. sent in by a medical professional or institution (CHERELLE Hugo, POOL HALL INSPECTOR, urgent care, hospital, or jail...) When possible be specific @ -[No] Did you speak to anyone other than the patient for history (EMS, parent, family, police, friend...)? What history was obtained from this source @ -[No] Did you review nursing and triage notes (agree or disagree)? Why? @ -[I reviewed and agree with nursing and triage notes] Were old charts reviewed (outside hosp., previous admission, EMS record, old EKG, old radiological studies, urgent care reports/EKG's, jail records)? Report findings @ -[No old charts were reviewed] Differential Diagnosis (chest pain, altered mental status, abdominal pain women, abdominal pain men, vaginal bleeding, weakness, fever, dyspnea, syncope, headache, dizziness, GI bleed, back pain, seizure, CVA, palpatations, mental health, musculoskeletal)? @ -[Differential Seizure: Recurrent seizure disorder, febrile seizure, alcohol withdrawal, stimulants, meningitis, encephalitis, intercranial hemorrhage, intracranial tumor, stroke, eclampsia, thyrotoxicosis, hypocalcemia, hyponatremia, hypernatremia, hypomagnesemia, psychogenic, this is not meant to be an all-inclusive list. Differential Musculoskeletal Muscular strain, contusion, ligament sprain, fracture, arthritis, septic arthri tis, bursitis, cellulitis, muscle spasm, nerve compression, DVT, arterial occlusion, herpes zoster, electrolyte abnormality, tumor.... This is not meant to be in all inclusive list EKG interpreted by me (3pts min.). @ -[As above] X-rays interpreted by me (1pt min.). @ -[None done] CT interpreted by me (1pt min.). @ -[None done] U/S interpreted by me (1pt. min.). @ -[None done] What testing was considered but not performed or refused? (CT, X-rays, U/S, labs)? Why? @ -[None] What meds were considered but not given or refused? Why? @ -[None] Did you discuss the management of the patient with other professionals (professionals i.e. , PA, POOL HALL INSPECTOR, lab, RT, psych nurse, home health care social worker, crm dynamics developer, teacher, job placement officer, case specialist)? Give summary @ -[No] Was smoking cessation discussed for >3mins.? @ -[No] Was critical care preformed (if so, how long)? @ -[No] Were there social determinants of health that impacted care today? How? (Homelessness, low income, unemployed, alcoholism, drug addiction, transportation, low edu. Level, literacy, decrease access to med. care, [facility], rehab)? @ -[No] Was there de-escalation of care discussed even if they declined (Discuss DNR or withdrawal of care, Hospice)? DNR status @ -[No] What co-morbidities impacted this encounter? (DM, HTN, Smoking, COPD, CAD, Cancer, CVA, ARF, Chemo, Hep., AIDS, mental health diagnosis, sleep apnea, morbid obesity)? @ -[None] Was patient admitted / discharged? Hospital course, mention meds given and route, prescriptions, significant lab abnormalities, going to OR and other pertinent info. @ -[Patient is 68-year-old woman here to have evaluation following seizure and fall. The patient's lab evaluation does reveal mild elevation of lactic acid that did clear on repeat testing. The patient is feeling back at baseline and at this point would like to go home. There is no exam finding of other acute injury at this point. Patient stable for discharge with close follow-up. Undiagnosed new problem with uncertain prognosis? @ -[No] Drug Therapy requiring intensive monitoring for toxicity (Heparin, Nitro, Insulin, Cardizem)? @ -[No] Were any procedures done? @ -[No] Diagnosis/symptom? @ -[Acute fall Acute minor head trauma Acute on chronic seizure disorder Acute, or Chronic, or Acute on Chronic? @ -[default] Uncomplicated (without systemic symptoms) or Complicated (systemic symptoms)? @ -[Uncomplicated Side effects of treatment? @ -[No] Exacerbation, Progression, or Severe Exacerbation? @ -[No] Poses a threat to life or bodily function? How? (Chest pain, USA, SD, pneumonia, PE, COPD, DKA, ARF, appy, cholecystitis, CVA, Diverticulitis, Homicidal, Suicidal, threat to staff... and all critical care pts) @ -[Low risk - Lab Data Result diagrams: 10/05/23 23:37 10/05/23 23:37 Lab Results 10/05/23 10/05/23 10/05/23 Range/Units 23:37 23:37 23:37 WBC 8.3 (3.8-10.6) k/uL RBC 4.36 (3.80-5.40) m/uL Hgb 12.3 (11.4-16.0) gm/dL Hct 37.3 (34.0-46.0) % MCV 85.5 (80.0-100.0) fL MCH 28.2 (25.0-35.0) pg MCHC 33.0 (31.0-37.0) g/dL RDW 13.5 (11.5-15.5) % Plt Count 208 (150-450) k/uL MPV 7.6 Neutrophils % 80 % Lymphocytes % 13 % Monocytes % 5 % Eosinophils % 1 % Basophils % 0 % Neutrophils # 6.6 (1.3-7.7) k/uL Lymphocytes # 1.1 (1.0-4.8) k/uL Monocytes # 0.4 (0-1.0) k/uL Eosinophils # 0.1 (0-0.7) k/uL Basophils # 0.0 (0-0.2) k/uL Sodium 133 L (137-145) mmol/L Potassium 3.9 (3.5-5.1) mmol/L Chloride 94 L (98-107) mmol/L Carbon Dioxide 22 (22-30) mmol/L Anion Gap 17 mmol/L BUN 41 H (7-17) mg/dL Creatinine 10.43 H* (0.52-1.04) mg/dL Est GFR (CKD-EPI)AfAm 4 (>60 ml/min/1.73 sqM) Est GFR (CKD-EPI)NonAf 3 (>60 ml/min/1.73 sqM) Glucose 135 H (74-99) mg/dL Lactic Ac Sepsis Rflx Plasma Lactic Acid Anmol 3.3 H* (0.7-2.0) mmol/L Calcium 10.1 (8.4-10.2) mg/dL Total Bilirubin 0.5 (0.2-1.3) mg/dL AST 38 H (14-36) U/L ALT 28 (4-34) U/L Alkaline Phosphatase 107 (38-126) U/L Total Protein 6.9 (6.3-8.2) g/dL Albumin 4.0 (3.5-5.0) g/dL 10/06/23 10/06/23 Range/Units 00:50 02:32 WBC (3.8-10.6) k/uL RBC (3.80-5.40) m/uL Hgb (11.4-16.0) gm/dL Hct (34.0-46.0) % MCV (80.0-100.0) fL MCH (25.0-35.0) pg MCHC (31.0-37.0) g/dL RDW (11.5-15.5) % Plt Count (150-450) k/uL MPV Neutrophils % % Lymphocytes % % Monocytes % % Eosinophils % % Basophils % % Neutrophils # (1.3-7.7) k/uL Lymphocytes # (1.0-4.8) k/uL Monocytes # (0-1.0) k/uL Eosinophils # (0-0.7) k/uL Basophils # (0-0.2) k/uL Sodium (137-145) mmol/L Potassium (3.5-5.1) mmol/L Chloride (98-107) mmol/L Carbon Dioxide (22-30) mmol/L Anion Gap mmol/L BUN (7-17) mg/dL Creatinine (0.52-1.04) mg/dL Est GFR (CKD-EPI)AfAm (>60 ml/min/1.73 sqM) Est GFR (CKD-EPI)NonAf (>60 ml/min/1.73 sqM) Glucose (74-99) mg/dL Lactic Ac Sepsis Rflx Y Plasma Lactic Acid Anmol 1.8 (0.7-2.0) mmol/L Calcium (8.4-10.2) mg/dL Total Bilirubin (0.2-1.3) mg/dL AST (14-36) U/L ALT (4-34) U/L Alkaline Phosphatase (38-126) U/L Total Protein (6.3-8.2) g/dL Albumin (3.5-5.0) g/dL Disposition Clinical Impression: Generalized seizure, Renal failure Disposition: HOME SELF-CARE Condition: Good Instructions (If sedation given, give patient instructions): Seizure/Epilepsy Discharge Instructions & Follow-Up Is patient prescribed a controlled substance at d/c from ED?: No Referrals: Durga Negrete MD [Primary Care Provider] - 1-2 days Patricia Randall MD [REFERRING] - 1-2 days
[2023-10-05] MEDS: LORazepam 2 MG/ML INJ IV STA (23:35)
[2023-10-05 23:48] LABS: Basophils % (A) 0 %; Eosinophils # (A) 0.1 k/uL (0-0.7); Eosinophils % (A) 1 %; HCT 37.3 % (34.0-46.0); HGB 12.3 gm/dL (11.4-16.0); Lymphocytes # (A) 1.1 k/uL (1.0-4.8); Lymphocytes % (A) 13 %; MCH 28.2 pg (25.0-35.0); MCV 85.5 fL (80.0-100.0); Mean Platelet Volume 7.6; Monocytes # (A) 0.4 k/uL (0-1.0); Monocytes % (A) 5 %; Neutrophils # (A) 6.6 k/uL (1.3-7.7); Neutrophils % (A) 80 %; Platelet Count 208 k/uL (150-450); RBC 4.36 m/uL (3.80-5.40); RDW 13.5 % (11.5-15.5); WBC 8.3 k/uL (3.8-10.6)
[2023-10-05 23:57] LABS: ALT 28 U/L (4-34); AST 38 U/L (14-36); African American GFR (CKD) 4 (>60 ml/min/1.73 sqM); Alkaline Phosphatase 107 U/L (38-126); Anion Gap 17 mmol/L; Blood Urea Nitrogen 41 mg/dL (7-17); Calcium 10.1 mg/dL (8.4-10.2); Carbon Dioxide 22 mmol/L (22-30); Chloride 94 mmol/L (98-107); Glucose 135 mg/dL (74-99); Non-African American GFR(CKD) 3 (>60 ml/min/1.73 sqM); Potassium 3.9 mmol/L (3.5-5.1); Sodium 133 mmol/L (137-145); Total Bilirubin 0.5 mg/dL (0.2-1.3); Total Protein 6.9 g/dL (6.3-8.2)
[2023-10-06] MEDS: SODIUM CHLORIDE 0.9% 1,000 ML IV ONE (00:51)
[2023-10-06 07:26] VITALS: BP 103/63; PULSE 82; RESP 14; TEMP 98.8
== END 2023-10-06 04:10 | disposition home or self-care (01) ==
LOC: EC 23:00
DX: S09.90XA Unspecified injury of head, initial encounter (principal); G40.409 Other generalized epilepsy and epileptic syndromes, not intractable, without status epilepticus; N19 Unspecified kidney failure; R74.02 Elevation of levels of lactic acid dehydrogenase [LDH]; I48.91 Unspecified atrial fibrillation; I10 Essential (primary) hypertension; I25.2 Old myocardial infarction; E78.5 Hyperlipidemia, unspecified; F32.A Depression, unspecified; F41.9 Anxiety disorder, unspecified; H54.8 Legal blindness, as defined in USA; Z79.899 Other long term (current) drug therapy; Z88.1 Allergy status to other antibiotic agents; Z88.8 Allergy status to other drugs, medicaments and biological substances; Z86.718 Personal history of other venous thrombosis and embolism; Z86.73 Personal history of transient ischemic attack (TIA), and cerebral infarction without residual deficits; W18.30XA Fall on same level, unspecified, initial encounter
CPT/HCPCS: 36415 ×2; 93005; 80053; 83605 ×2; 85025; 99285; 96374; 96361 ×3; J2060

== ENCOUNTER 2023-10-10 10:59 | Emergency (ER) | payer MEDICARE ==
[2023-10-10 11:31] VITALS: TEMP 97.4
[2023-10-10] MEDS: LORazepam 2 MG/ML INJ IV STA (12:14)
--- NOTE | 2023-10-10 12:26 | CT ---
EXAMINATION TYPE: CT brain thomas diana DATE OF EXAM: 10/10/2023 COMPARISON: None HISTORY: FALL, SEIZURE ACTIVITY CT DLP: 1223.[address] of the brain was performed. The ventricles, basal cisterns and sulci overlying the cerebral convexities demonstrate enlargement. There is no evidence for intracranial hemorrhage or sulcal effacement. There is decreased attenuatio n about the periventricular white matter and deep white matter of both cerebral hemispheres, compatib le with chronic small vessel ischemia. No mass effects are seen. If symptoms persist consider MRI. Osseous calvarium is intact. IMPRESSION: 1. Age related atrophic and chronic small vessel ischemic change without acute intracranial process seen at this time. CT Cervical Spine: Unenhanced CT of the cervical spine was performed with bone and soft tissue window settings submitted . Coronal and sagittal reconstruction is obtained. There is normal alignment and prevertebral soft tissues. No evidence for acute cervical fracture . Scattered degenerative disc disease and spondylosis. Biapical scarring. IMPRESSION: 1. No evidence for acute fracture or subluxation of the cervical spine.
--- NOTE | 2023-10-10 12:37 | ED ---
General Adult HPI - General Chief complaint: Fall Stated complaint: SEIZURE Time Seen by Provider: 10/10/23 11:30 Source: patient Mode of arrival: EMS Limitations: no limitations - History of Present Illness Initial comments: Dictation was produced using [employer] dictation software. please excuse any grammatical, word or spelling errors. Chief Complaint: 68-year-old hysterical female presents to the emergency department with seizure and fall History of Present Illness: Patient is a 68-year-old female she has history of stroke seizure disorder. She is not a good historian. Patient is anxious and uncooperative at the bedside. She allegedly fell hit her head on the table. It is unclear if patient had a seizure first or fell first. Patient complaining of posterior head pain and neck pain. The ROS documented in this emergency department record has been reviewed and confirmed by me. Those systems with pertinent positive or negative responses have been documented in the HPI. All other systems are other negative and/or noncontributory. - Related Data Home Medications Medication Instructions Recorded Confirmed Atorvastatin [Lipitor] 80 mg PO HS 01/04/22 10/02/23 Calcium Acetate [PhosLo] 1,334 mg PO DAILY PRN 09/29/23 10/02/23 Calcium Acetate [PhosLo] 1,334 mg PO TID-W/MEALS 09/29/23 10/02/23 Furosemide [Lasix] 80 mg PO DAILY 09/29/23 10/02/23 Lactulose 20 gm PO DAILY PRN 09/29/23 10/02/23 Megestrol [Megace] 40 mg PO DAILY 09/29/23 10/02/23 Midodrine [ProAmatine] 5 mg PO DAILY PRN 09/29/23 10/02/23 busPIRone HCl [Buspar] 5 mg PO BID 09/29/23 10/02/23 traZODone HCL [Desyrel] 50 mg PO HS 09/29/23 10/02/23 Previous Rx's Medication Instructions Recorded levETIRAcetam [Keppra] 500 mg PO Q12HR 90 Days #180 tab 09/30/23 FLUoxetine HCL [PROzac] 20 mg PO DAILY #0 10/02/23 Allergies Allergy/AdvReac Type Severity Reaction Status Date / Time carbamazepine [From Tegretol] Allergy Unknown Verified 10/05/23 23:06 gentamicin Allergy Rash/Hives Verified 10/05/23 23:06 hydroxychloroquine Allergy CAUSED Verified 10/05/23 23:06 [From Plaquenil] BLINDNESS vancomycin Allergy Rash/Hives Verified 10/05/23 23:06 Review of Systems ROS Statement: Those systems with pertinent positive or pertinent negative responses have been documented in the HPI. ROS Other: All systems not noted in ROS Statement are negative. Past Medical History Past Medical History: CVA/TIA, Deep Vein Thrombosis (DVT), Eye Disorder, Hyperlipidemia, Hypertension, Myocardial Infarction ([place]), Renal Disease, Seizure Disorder Additional Past Medical History / Comment(s): CVA-2018-NO RESIDUAL PROBLEMS. DVT BILAT LEGS. LEGALLY BLIND R/T PLAQUENIL. HX LUPUS. SEIZURE R/T LUPUS-LAST ONE 4-5 YEARS AGO Last Myocardial Infarction Date:: 2016 History of Any Multi-Drug Resistant Organisms: None Reported Past Surgical History: Heart Catheterization With Stent, Tonsillectomy Additional Past Surgical History / Comment(s): SKIN GRAFT FROM RT ARM TO RT LEG. COLONOSCOPY Past Anesthesia/Blood Transfusion Reactions: No Reported Reaction Date of Last Stent Placement:: 2016 Past Psychological History: Anxiety, Depression Smoking Status: Never smoker Past Alcohol Use History: Occasional Past Drug Use History: None Reported - Past Family History Father Family Medical History: Cancer General Exam - General Exam Comments Initial Comments: PHYSICAL EXAM: General Impression: Alert and oriented x3, acute distress secondary to anxiety HEENT: Normocephalic atraumatic, extra-ocular movements intact, pupils equal and reactive to light bilaterally, mucous membranes moist. Cardiovascular: Heart regular rate and rhythm Chest: Able to complete full sentences, no retractions, no tachypnea Abdomen: abdomen soft, non-tender, non-distended, no organomegaly Musculoskeletal: Pulses present and equal in all extremities, no peripheral edema Motor: no focal deficits noted Neurological: CN II-XII grossly intact, no focal motor or sensory deficits noted Skin: Intact with no visualized rashes Psych: Normal affect and mood Limitations: no limitations Course Vital Signs 10/10/23 10/10/23 11:01 11:30 Temperature 97.4 F L Pulse Rate 90 Respiratory 36 H 40 H Rate Blood Pressure 111/75 O2 Sat by Pulse 100 Oximetry EKG Findings - EKG Comments: EKG Findings:: My EKG interpretation: Ventricular rate 89, sinus rhythm, parable 235, cures 95, QTc 4 7. No LA prolongation, no QTC prolongation, no ST or T-wave changes noted. Overall, this EKG is unremarkable Medical Decision Making - Medical Decision Making Was pt. sent in by a medical professional or institution (, CHERELLE, STOP[facility] GRINDER, urgent care, hospital, or custodial...) When possible be specific @ -No Did you speak to anyone other than the patient for history (EMS, parent, family, police, friend...)? What history was obtained from this source @ -No Did you review nursing and triage notes (agree or disagree)? Why? @ -I reviewed and agree with nursing and triage notes Were old charts reviewed (outside hosp., previous admission, EMS record, old EKG, old radiological studies, urgent care reports/EKG's, custodial records)? Report findings @ -No old charts were reviewed Differential Diagnosis (chest pain, altered mental status, abdominal pain women, abdominal pain men, vaginal bleeding, musculoskeletal, weakness, fever, dyspnea, syncope, headache, dizziness, GI bleed, back pain, seizure, CVA, palpatations, mental health)? @ -Differential Seizure: Recurrent seizure disorder, febrile seizure, alcohol withdrawal, stimulants, meningitis, encephalitis, intercranial hemorrhage, intracranial tumor, stroke, eclampsia, thyrotoxicosis, hypocalcemia, hyponatremia, hypernatremia, hypomagnesemia, psychogenic, this is not meant to be an all-inclusive list. EKG interpreted by me (3pts min.). @ -See above X-rays interpreted by me (1pt min.). @ -None done CT interpreted by me (1pt min.). @ -CT scan of the head and C-spine shows no acute processes U/S interpreted by me (1pt. min.). @ -None done What testing was considered but not performed or refused? (CT, X-rays, U/S, labs)? Why? @ -None What meds were considered but not given or refused? Why? @ -None Did you discuss the management of the patient with other professionals (professionals i.e. CHERELLE Hugo, STOPPER GRINDER, lab, RT, psych nurse, social human services assistants, home health nurse licensed practical, teacher, air defence officer, renal case manager)? Give summary @ -No Was smoking cessation discussed for >3mins.? @ -No Was critical care preformed (if so, how long)? @ -No Were there social determinants of health that impacted care today? How? (Homelessness, low income, unemployed, alcoholism, drug addiction, transportation, low edu. Level, literacy, decrease access to med. care, intermediate, rehab)? @ -No Was there de-escalation of care discussed even if they declined (Discuss DNR or withdrawal of care, Hospice)? DNR status @ -No What co-morbidities impacted this encounter? (DM, HTN, Smoking, COPD, CAD, Ca ncer, CVA, ARF, Chemo, Hep., AIDS, mental health diagnosis, sleep apnea, morbid obesity)? @ -None Was patient admitted / discharged? Hospital course, mention meds given and route, prescriptions, significant lab abnormalities, going to OR and other pertinent info. @ -68-year-old female past medical history of peritoneal dialysis and seizure disorder presents to the ER after head injury and seizure. Patient states that she has seizures often. Patient states she did strike the back of her head. Vital signs stable. Neurologic exam is unremarkable. Imaging studies are negative. Patient takes Keppra. She is given 1 g dose IV patient was given analgesics. Discharged told to follow-up with primary care doctor. Undiagnosed new problem with uncertain prognosis? @ -No Drug Therapy requiring intensive monitoring for toxicity (Heparin, Nitro, Insulin, Cardizem)? @ -No Were any procedures done? @ -No Diagnosis/symptom? Acute, or Chronic, or Acute on Chronic? Uncomplicated (without systemic symptoms) or Complicated (systemic symptoms)? @ -Seizure Side effects of treatment? @ -No Exacerbation, Progression, or Severe Exacerbation? @ -No Poses a threat to life or bodily function? How? (Chest pain, [place], [place], pneumonia, PE, COPD, DKA, ARF, appy, cholecystitis, CVA, Diverticulitis, Homicidal, Suicidal, threat to staff... and all critical care pts) @ -No - Lab Data Result diagrams: 10/10/23 12:20 10/10/23 12:20 Lab Results 10/10/23 10/10/23 10/10/23 Range/Units 12:20 12:20 12:20 WBC 8.2 (3.8-10.6) k/uL RBC 4.29 (3.80-5.40) m/uL Hgb 12.2 (11.4-16.0) gm/dL Hct 35.8 (34.0-46.0) % MCV 83.5 (80.0-100.0) fL MCH 28.5 (25.0-35.0) pg MCHC 34.1 (31.0-37.0) g/dL RDW 13.5 (11.5-15.5) % Plt Count 206 (150-450) k/uL MPV 8.3 Neutrophils % 82 % Lymphocytes % 11 % Monocytes % 5 % Eosinophils % 1 % Basophils % 0 % Neutrophils # 6.7 (1.3-7.7) k/uL Lymphocytes # 0.9 L (1.0-4.8) k/uL Monocytes # 0.4 (0-1.0) k/uL Eosinophils # 0.0 (0-0.7) k/uL Basophils # 0.0 (0-0.2) k/uL Sodium 126 L (137-145) mmol/L Potassium 3.5 (3.5-5.1) mmol/L Chloride 88 L (98-107) mmol/L Carbon Dioxide 25 (22-30) mmol/L Anion Gap 13 mmol/L BUN 48 H (7-17) mg/dL Creatinine 10.08 H* (0.52-1.04) mg/dL Est GFR (CKD-EPI)AfAm 4 (>60 ml/min/1.73 sqM) Est GFR (CKD-EPI)NonAf 4 (>60 ml/min/1.73 sqM) Glucose 89 (74-99) mg/dL Plasma Lactic Acid Anmol 3.7 H* (0.7-2.0) mmol/L Calcium 9.6 (8.4-10.2) mg/dL Magnesium 2.1 (1.6-2.3) mg/dL Total Bilirubin 0.5 (0.2-1.3) mg/dL AST 46 H (14-36) U/L ALT 32 (4-34) U/L Alkaline Phosphatase 160 H (38-126) U/L Total Protein 6.6 (6.3-8.2) g/dL Albumin 3.8 (3.5-5.0) g/dL Disposition Clinical Impression: Seizure, Closed head injury Disposition: HOME SELF-CARE Condition: Good Instructions (If sedation given, give patient instructions): Fall Prevention for Older Adults (ED) Is patient prescribed a controlled substance at d/c from ED?: No Referrals: None,Stated [REFERRING] - 1-2 days Time of Disposition: 14:27
[2023-10-10 12:45] LABS: Basophils % (A) 0 %; Eosinophils % (A) 1 %; HCT 35.8 % (34.0-46.0); HGB 12.2 gm/dL (11.4-16.0); Lymphocytes # (A) 0.9 k/uL (1.0-4.8); Lymphocytes % (A) 11 %; MCH 28.5 pg (25.0-35.0); MCHC 34.1 g/dL (31.0-37.0); MCV 83.5 fL (80.0-100.0); Mean Platelet Volume 8.3; Monocytes # (A) 0.4 k/uL (0-1.0); Monocytes % (A) 5 %; Neutrophils # (A) 6.7 k/uL (1.3-7.7); Neutrophils % (A) 82 %; Platelet Count 206 k/uL (150-450); RBC 4.29 m/uL (3.80-5.40); RDW 13.5 % (11.5-15.5); WBC 8.2 k/uL (3.8-10.6)
[2023-10-10 13:07] LABS: ALT 32 U/L (4-34); AST 46 U/L (14-36); African American GFR (CKD) 4 (>60 ml/min/1.73 sqM); Albumin 3.8 g/dL (3.5-5.0); Alkaline Phosphatase 160 U/L (38-126); Anion Gap 13 mmol/L; Blood Urea Nitrogen 48 mg/dL (7-17); Calcium 9.6 mg/dL (8.4-10.2); Carbon Dioxide 25 mmol/L (22-30); Chloride 88 mmol/L (98-107); Glucose 89 mg/dL (74-99); Magnesium 2.1 mg/dL (1.6-2.3); Non-African American GFR(CKD) 4 (>60 ml/min/1.73 sqM); Potassium 3.5 mmol/L (3.5-5.1); Sodium 126 mmol/L (137-145); Total Bilirubin 0.5 mg/dL (0.2-1.3); Total Protein 6.6 g/dL (6.3-8.2)
[2023-10-10] MEDS: MORPHINE SULFATE 4 MG/ML SYRINGE IV STA (14:52)
[2023-10-10] MEDS: levETIRAcetam IV 500 MG/5 ML VIAL IVP STA (14:52)
[2023-10-10 16:36] VITALS: BP 130/68; PULSE 68; RESP 16
== END 2023-10-10 16:18 | disposition home or self-care (01) ==
LOC: EC 10:59
DX: S09.90XA Unspecified injury of head, initial encounter (principal); I10 Essential (primary) hypertension; I25.2 Old myocardial infarction; E78.5 Hyperlipidemia, unspecified; F32.A Depression, unspecified; F41.9 Anxiety disorder, unspecified; Z79.899 Other long term (current) drug therapy; Z88.8 Allergy status to other drugs, medicaments and biological substances; W18.30XA Fall on same level, unspecified, initial encounter
CPT/HCPCS: 36415; 93005; 80053; 83605; 83735; 85025; 72125; 70450; 99285; 96374; 96375 ×2; J2060; J2270; J1953

== ENCOUNTER 2023-10-16 09:00 | Inpatient (IN) | payer MEDICARE ==
--- NOTE | 2023-10-16 09:46 | ED ---
General Adult HPI - General Chief complaint: Weakness Stated complaint: WEAKNESS Time Seen by Provider: 10/16/23 09:06 Source: patient, EMS, RN notes reviewed Mode of arrival: EMS Limitations: no limitations - History of Present Illness Initial comments: Patient is a pleasant 68-year-old female present to the emergency department with general weakness. Onset of symptoms was around 7 to 10 days ago. Patient feels weak all over. No isolated area of weakness. Patient is only able to walk 10 or 20 feet. Patient feels she needs to go to rehab. Patient states she did go to rehab previously and that helped her. Patient has had decreased appetite and oral intake. No vomiting. No abdominal pain. - Related Data Home Medications Medication Instructions Recorded Confirmed Atorvastatin [Lipitor] 80 mg PO HS 01/04/22 10/16/23 Calcium Acetate [PhosLo] 1,334 mg PO DAILY PRN 09/29/23 10/16/23 Calcium Acetate [PhosLo] 1,334 mg PO TID-W/MEALS 09/29/23 10/16/23 Furosemide [Lasix] 80 mg PO DAILY 09/29/23 10/16/23 Lactulose 20 gm PO DAILY PRN 09/29/23 10/16/23 Megestrol [Megace] 40 mg PO DAILY 09/29/23 10/16/23 Midodrine [ProAmatine] 5 mg PO DAILY PRN 09/29/23 10/16/23 busPIRone HCl [Buspar] 5 mg PO BID 09/29/23 10/16/23 traZODone HCL [Desyrel] 50 mg PO HS 09/29/23 10/16/23 Previous Rx's Medication Instructions Recorded levETIRAcetam [Keppra] 500 mg PO Q12HR 90 Days #180 tab 09/30/23 FLUoxetine HCL [PROzac] 20 mg PO DAILY #0 10/02/23 Allergies Allergy/AdvReac Type Severity Reaction Status Date / Time carbamazepine [From Tegretol] Allergy Unknown Verified 10/16/23 09:06 gentamicin Allergy Rash/Hives Verified 10/16/23 09:06 hydroxychloroquine Allergy CAUSED Verified 10/16/23 09:06 [From Plaquenil] BLINDNESS vancomycin Allergy Rash/Hives Verified 10/16/23 09:06 Review of Systems ROS Statement: Those systems with pertinent positive or pertinent negative responses have been documented in the HPI. ROS Other: All systems not noted in ROS Statement are negative. Constitutional: Denies: fever Eyes: Denies: eye pain ENT: Denies: ear pain Respiratory: Denies: cough, dyspnea Cardiovascular: Denies: chest pain Endocrine: Reports: fatigue Gastrointestinal: Denies: abdominal pain Neurological: Reports: as per HPI, weakness. Denies: headache Past Medical History Past Medical History: CVA/TIA, Deep Vein Thrombosis (DVT), Eye Disorder, Hyperlipidemia, Hypertension, Myocardial Infarction ([place]), Renal Disease, Seizure Disorder Additional Past Medical History / Comment(s): CVA-2018-NO RESIDUAL PROBLEMS. DVT BILAT LEGS. LEGALLY BLIND R/T PLAQUENIL. HX LUPUS. SEIZURE R/T LUPUS-LAST ONE 4-5 YEARS AGO Last Myocardial Infarction Date:: 2016 History of Any Multi-Drug Resistant Organisms: None Reported Past Surgical History: Heart Catheterization With Stent, Tonsillectomy Additional Past Surgical History / Comment(s): SKIN GRAFT FROM RT ARM TO RT LEG. COLONOSCOPY Past Anesthesia/Blood Transfusion Reactions: No Reported Reaction Date of Last Stent Placement:: 2016 Past Psychological History: Anxiety, Depression Smoking Status: Never smoker Past Alcohol Use History: Occasional Past Drug Use History: None Reported - Past Family History Father Family Medical History: Cancer General Exam Limitations: no limitations General appearance: alert, in no apparent distress Head exam: Present: normocephalic Eye exam: Present: normal appearance, PERRL, EOMI ENT exam: Present: normal oropharynx Neck exam: Present: normal inspection Respiratory exam: Present: normal lung sounds bilaterally Cardiovascular Exam: Present: regular rate, normal rhythm GI/Abdominal exam: Present: soft. Absent: tenderness Extremities exam: Present: normal inspection. Absent: tenderness Neurological exam: Present: alert, CN II-XII intact Expanded Neurological exam: Present: protecting the airway Speech: Present: fluid speech Motor strength exam: RUE: 5, LUE: 5, RLE: 3, LLE: 3 Eye Response: (4) open spontaneously Motor Response: (6) obeys commands Verbal Response: (5) oriented Psychiatric exam: Present: normal affect, normal mood Skin exam: Present: normal color Course Vital Signs 10/16/23 10/16/23 09:07 10:03 Temperature 98.2 F Pulse Rate 85 Respiratory 16 16 Rate Blood Pressure 111/85 116/71 O2 Sat by Pulse 96 Oximetry EKG Findings - EKG Results: EKG: interpreted by ERMD (Nonspecific ST-T), sinus rhythm, normal axis, normal QRS Medical Decision Making - Medical Decision Making Was pt. sent in by a medical professional or institution (, PA, [facility]ER, urgent care, hospital, or residential...) When possible be specific @ -[No] Did you speak to anyone other than the patient for history (EMS, parent, family, police, friend...)? What history was obtained from this source @ -[No] Did you review nursing and triage notes (agree or disagree)? Why? @ -[I reviewed and agree with nursing and triage notes] Were old charts reviewed (outside hosp., previous admission, EMS record, old EKG, old radiological studies, urgent care reports/EKG's, residential records)? Report findings @ -Previous admission reviewed Differential Diagnosis (chest pain, altered mental status, abdominal pain women, abdominal pain men, vaginal bleeding, weakness, fever, dyspnea, syncope, headache, dizziness, GI bleed, back pain, seizure, CVA, palpatations, mental health, musculoskeletal)? @ -Differential Weakness: Hypoglycemia, shock, sepsis, hyponatremia, anemia, infection, [place], ETOH, adverse medicine reaction, overdose, stroke, this is not meant to be an all-inclusive list. EKG interpreted by me (3pts min.). @ -[As above] X-rays interpreted by me (1pt min.). @ -Chest x-ray shows no acute process CT interpreted by me (1pt min.). @ -[None done] U/S interpreted by me (1pt. min.). @ -[None done] What testing was considered but not performed or refused? (CT, X-rays, U/S, labs)? Why? @ -[None] What meds were considered but not given or refused? Why? @ -[None] Did you discuss the management of the patient with other professionals (professionals i.e. , PA, CREAM DUMPER, lab, RT, psych nurse, social service agency director, black jack dealer, teacher, optics technical officer, case consultant)? Give summary @ -Sound physician, Dr. Raygoza covering for Dr. Negrete Was smoking cessation discussed for >3mins.? @ -[No] Was critical care preformed (if so, how long)? @ -[No] Were there social determinants of health that impacted care today? How? (Homelessness, low income, unemployed, alcoholism, drug addiction, transportation, low edu. Level, literacy, decrease access to med. care, [facility], rehab)? @ -[No] Was there de-escalation of care discussed even if they declined (Discuss DNR or withdrawal of care, Hospice)? DNR status @ -[No] What co-morbidities impacted this encounter? (DM, HTN, Smoking, COPD, CAD, Cancer, CVA, ARF, Chemo, Hep., AIDS, mental health diagnosis, sleep apnea, morbid obesity)? @ -[None] Was patient admitted / discharged? Hospital course, mention meds given and route, prescriptions, significant lab abnormalities, going to OR and other pertinent info. @ -Patient presents with generalized weakness 90 being able to take care of herself and seeking rehab. Patient is hyponatremic. Patient will be admitted with social work consult. Admission orders written. Undiagnosed new problem with uncertain prognosis? @ -[No] Drug Therapy requiring intensive monitoring for toxicity (Heparin, Nitro, Insuli n, Cardizem)? @ -[No] Were any procedures done? @ -[No] Diagnosis/symptom? @ -Weakness, hyponatremia Acute, or Chronic, or Acute on Chronic? @ -Acute, acute Uncomplicated (without systemic symptoms) or Complicated (systemic symptoms)? @ -[default] Side effects of treatment? @ -[No] Exacerbation, Progression, or Severe Exacerbation? @ -[No] Poses a threat to life or bodily function? How? (Chest pain, [place], [place], pneumonia, PE, COPD, DKA, ARF, appy, cholecystitis, CVA, Diverticulitis, Homicidal, Suicidal, threat to staff... and all critical care pts) @ -[No] - Lab Data Result diagrams: 10/16/23 10:20 10/16/23 10:20 Lab Results 10/16/23 10/16/23 10/16/23 Range/Units 10:20 10:20 10:20 WBC 4.5 (3.8-10.6) k/uL RBC 3.39 L (3.80-5.40) m/uL Hgb 9.7 L D (11.4-16.0) gm/dL Hct 28.4 L (34.0-46.0) % MCV 83.8 (80.0-100.0) fL MCH 28.7 (25.0-35.0) pg MCHC 34.3 (31.0-37.0) g/dL RDW 13.5 (11.5-15.5) % Plt Count 171 (150-450) k/uL MPV 7.7 Neutrophils % 73 % Lymphocytes % 18 % Monocytes % 5 % Eosinophils % 1 % Basophils % 0 % Neutrophils # 3.3 (1.3-7.7) k/uL Lymphocytes # 0.8 L (1.0-4.8) k/uL Monocytes # 0.2 (0-1.0) k/uL Eosinophils # 0.0 (0-0.7) k/uL Basophils # 0.0 (0-0.2) k/uL PT 10.3 (10.0-12.5) sec INR 0.9 (<1.2) APTT 23.2 (22.0-30.0) sec Sodium 126 L (137-145) mmol/L Potassium 3.6 (3.5-5.1) mmol/L Chloride 88 L (98-107) mmol/L Carbon Dioxide 24 (22-30) mmol/L Anion Gap 14 mmol/L BUN 65 H (7-17) mg/dL Creatinine 10.34 H* (0.52-1.04) mg/dL Est GFR (CKD-EPI)AfAm 4 (>60 ml/min/1.73 sqM) Est GFR (CKD-EPI)NonAf 3 (>60 ml/min/1.73 sqM) Glucose 95 (74-99) mg/dL Plasma Lactic Acid Anmol (0.7-2.0) mmol/L Calcium 8.6 (8.4-10.2) mg/dL Magnesium 2.2 (1.6-2.3) mg/dL Total Bilirubin 0.4 (0.2-1.3) mg/dL AST 48 H (14-36) U/L ALT 27 (4-34) U/L Alkaline Phosphatase 153 H (38-126) U/L Troponin I (0.000-0.034) ng/mL Total Protein 5.1 L (6.3-8.2) g/dL Albumin 2.7 L (3.5-5.0) g/dL TSH 0.791 (0.465-4.680) mIU/L Influenza Type A (PCR) (Not Detectd) Influenza Type B (PCR) (Not Detectd) RSV (PCR) (Not Detectd) SARS-CoV-2 (PCR) (Not Detectd) 10/16/23 10/16/23 10/16/23 Range/Units 10:20 10:20 10:20 WBC (3.8-10.6) k/uL RBC (3.80-5.40) m/uL Hgb (11.4-16.0) gm/dL Hct (34.0-46.0) % MCV (80.0-100.0) fL MCH (25.0-35.0) pg MCHC (31.0-37.0) g/dL RDW (11.5-15.5) % Plt Count (150-450) k/uL MPV Neutrophils % % Lymphocytes % % Monocytes % % Eosinophils % % Basophils % % Neutrophils # (1.3-7.7) k/uL Lymphocytes # (1.0-4.8) k/uL Monocytes # (0-1.0) k/uL Eosinophils # (0-0.7) k/uL Basophils # (0-0.2) k/uL PT (10.0-12.5) sec INR (<1.2) APTT (22.0-30.0) sec Sodium (137-145) mmol/L Potassium (3.5-5.1) mmol/L Chloride (98-107) mmol/L Carbon Dioxide (22-30) mmol/L Anion Gap mmol/L BUN (7-17) mg/dL Creatinine (0.52-1.04) mg/dL Est GFR (CKD-EPI)AfAm (>60 ml/min/1.73 sqM) Est GFR (CKD-EPI)NonAf (>60 ml/min/1.73 sqM) Glucose (74-99) mg/dL Plasma Lactic Acid Anmol 0.6 L (0.7-2.0) mmol/L Calcium (8.4-10.2) mg/dL Magnesium (1.6-2.3) mg/dL Total Bilirubin (0.2-1.3) mg/dL AST (14-36) U/L ALT (4-34) U/L Alkaline Phosphatase (38-126) U/L Troponin I 0.074 H* (0.000-0.034) ng/mL Total Protein (6.3-8.2) g/dL Albumin (3.5-5.0) g/dL TSH (0.465-4.680) mIU/L Influenza Type A (PCR) Not Detected (Not Detectd) Influenza Type B (PCR) Not Detected (Not Detectd) RSV (PCR) Not Detected (Not Detectd) SARS-CoV-2 (PCR) Not Detected (Not Detectd) Disposition Clinical Impression: Weakness, Hyponatremia Disposition: ADMITTED IP TO THIS HOSP Is patient prescribed a controlled substance at d/c from ED?: No Referrals: Durga Negrete MD [Primary Care Provider] - 1-2 days Time of Disposition: 13:15
[2023-10-16 12:05] LABS: INR 0.9 (<1.2); Partial Thromboplastin Time 23.2 sec (22.0-30.0); Prothrombin Time 10.3 sec (10.0-12.5)
[2023-10-16 12:10] LABS: Basophils % (A) 0 %; Eosinophils % (A) 1 %; HCT 28.4 % (34.0-46.0); Lymphocytes # (A) 0.8 k/uL (1.0-4.8); Lymphocytes % (A) 18 %; MCH 28.7 pg (25.0-35.0); MCHC 34.3 g/dL (31.0-37.0); MCV 83.8 fL (80.0-100.0); Mean Platelet Volume 7.7; Monocytes # (A) 0.2 k/uL (0-1.0); Monocytes % (A) 5 %; Neutrophils # (A) 3.3 k/uL (1.3-7.7); Neutrophils % (A) 73 %; Platelet Count 171 k/uL (150-450); RBC 3.39 m/uL (3.80-5.40); RDW 13.5 % (11.5-15.5); WBC 4.5 k/uL (3.8-10.6)
--- NOTE | 2023-10-16 12:13 | XR ---
EXAMINATION TYPE: XR chest 2V DATE OF EXAM: 10/16/2023 COMPARISON: 02/18/2020. HISTORY: Weakness. TECHNIQUE: Frontal and lateral views of the chest are obtained. FINDINGS: There is no focal air space opacity, pleural effusion, or pneumothorax seen. The cardiac silhouette size is within normal limits. The osseous structures are intact. IMPRESSION: No acute cardiopulmonary process.
[2023-10-16 12:17] LABS: ALT 27 U/L (4-34); AST 48 U/L (14-36); African American GFR (CKD) 4 (>60 ml/min/1.73 sqM); Albumin 2.7 g/dL (3.5-5.0); Alkaline Phosphatase 153 U/L (38-126); Anion Gap 14 mmol/L; Blood Urea Nitrogen 65 mg/dL (7-17); Calcium 8.6 mg/dL (8.4-10.2); Carbon Dioxide 24 mmol/L (22-30); Chloride 88 mmol/L (98-107); Glucose 95 mg/dL (74-99); Magnesium 2.2 mg/dL (1.6-2.3); Non-African American GFR(CKD) 3 (>60 ml/min/1.73 sqM); Potassium 3.6 mmol/L (3.5-5.1); Sodium 126 mmol/L (137-145); Total Bilirubin 0.4 mg/dL (0.2-1.3); Total Protein 5.1 g/dL (6.3-8.2)
[2023-10-16 12:23] LABS: HGB 9.7 gm/dL (11.4-16.0)
[2023-10-16] MEDS ORDERED: NALOXONE 0.4 MG/ML 1 ML VIAL IV PRN (13:34)
[2023-10-16] MEDS ORDERED: CALCIUM ACETATE 667 MG TAB PO PRN (15:14)
[2023-10-16] MEDS ORDERED: MIDODRINE 5 MG TAB PO PRN (15:14)
[2023-10-16] MEDS: SODIUM CHLORIDE 0.9% 1,000 ML IV SCH (15:41)
--- NOTE | 2023-10-16 16:37 | P.HPIM ---
History of Present Illness H&P Date: 10/16/23 68 year old F with PMH of ESRD on PD, seizure disorder, history of CVA, HTN, CAD post stent presents to the ED for generalized weakness. Recently seen in the ED on 09/29, 10/05, 10/10 for possible seizure, started on Keppra. Patient reports generalized weakness since then. Difficult time dealing with ADL and IADLs. Ambulates with the aid of walker. Denies slurred speech, confusion, focal neurological deficits. Denies chest pain, dizziness, shortness of breath or palpitations. Reports poor appetite and weight loss of 10-15 pounds over the past 2 weeks. In the ED, she underwent extensive evaluation. Vital signs BP 116/71, HR 85, RR 16, 96% on RA. CBC Hg 9.7 Hct 28.4. Coag panel within normal limits. CMP Na 126, Cl 88, BUN 65, Cr 10.34, ALT 48. Lactic acid 0.6. TSH 0.791. COVID, RSV, Flu negative. EKG sinus rhythm with ventricular rate of 85. CXR negative. Patient is admitted for further workup and management. General: non toxic, no distress, appears at stated age, frail Derm: warm, dry Head: atraumatic, normocephalic, symmetric Eyes: EOMI, no lid lag, anicteric sclera Mouth: no lip lesion, mucus membranes moist Cardiovascular: S1S2 reg, diastolic murmur, positive posterior tibial pulse bilateral, Lungs: CTA bilateral, no rhonchi, no rales , no accessory muscle use Abdominal: soft, nontender to palpation, no guarding, no appreciable organomegaly Ext: no gross muscle atrophy, no edema, no contractures Neuro: no focal neuro deficits Psych: Alert, oriented, appropriate affect Based on my assessment of this patient, this patient meets a high complexity level of care. Patient has an acute diagnosis of generalized weakness with elevated troponin that poses a threat to life or bodily function. Generalized weakness: PT and OT consulted. Fall precautions. Normocytic anemia: Acute drop since previous CBC. Denies active bleeding. Repeat CBC tomorrow morning with iron studies. Troponin elevation: Trend Trop/EKG to rule out ACS. Recent Echo 10/02 shows EF 35-40% with hypokinetic wall motion. Lipitor 80 mg PO QHS. She would benefit from beta aure and ASA given history of CAD will defer to Cardiology in the outpatient setting. Hyponatremia: With hypoCl. Possible dehydration? NS at 50 cc/hr. Caution with h/o HF. Transaminitis: Monitor. Chronic conditions: ESRD on PD, seizure disorder, history of CVA, HTN, CAD post stent CODE STATUS: FULL CODE. DVT Prophylaxis: Heparin SQ. GI Prophylaxis: Designated medical POA if patient is not able to make medical decisions for th emselves: I have reviewed the following moving consultant notes: I have reviewed the results of the following tests: As above. I have ordered the following tests: As above. I have discussed the care of this patient with the following independent historian: I have independently interpreted the following test below: EKG, CXR I have discussed the management of this patient with the following physician: Past Medical History Past Medical History: CVA/TIA, Deep Vein Thrombosis (DVT), Eye Disorder, Hyperlipidemia, Hypertension, Myocardial Infarction ([place]), Renal Disease, Seizure Disorder Additional Past Medical History / Comment(s): CVA-2018-NO RESIDUAL PROBLEMS. DVT BILAT LEGS. LEGALLY BLIND R/T PLAQUENIL. HX LUPUS. SEIZURE R/T LUPUS-LAST ONE 4-5 YEARS AGO Last Myocardial Infarction Date:: 2016 History of Any Multi-Drug Resistant Organisms: None Reported Past Surgical History: Heart Catheterization With Stent, Tonsillectomy Additional Past Surgical History / Comment(s): SKIN GRAFT FROM RT ARM TO RT LEG. COLONOSCOPY Past Anesthesia/Blood Transfusion Reactions: No Reported Reaction Date of Last Stent Placement:: 2016 Past Psychological History: Anxiety, Depression Smoking Status: Never smoker Past Alcohol Use History: Occasional Past Drug Use History: None Reported - Past Family History Father Family Medical History: Cancer Medications and Allergies Home Medications Medication Instructions Recorded Confirmed Type Atorvastatin [Lipitor] 80 mg PO HS 01/04/22 10/16/23 History Calcium Acetate [PhosLo] 1,334 mg PO DAILY PRN 09/29/23 10/16/23 History Calcium Acetate [PhosLo] 1,334 mg PO TID-W/MEALS 09/29/23 10/16/23 History Furosemide [Lasix] 80 mg PO DAILY 09/29/23 10/16/23 History Lactulose 20 gm PO DAILY PRN 09/29/23 10/16/23 History Megestrol [Megace] 40 mg PO DAILY 09/29/23 10/16/23 History Midodrine [ProAmatine] 5 mg PO DAILY PRN 09/29/23 10/16/23 History busPIRone HCl [Buspar] 5 mg PO BID 09/29/23 10/16/23 History traZODone HCL [Desyrel] 50 mg PO HS 09/29/23 10/16/23 History levETIRAcetam [Keppra] 500 mg PO Q12HR 90 Days #180 tab 09/30/23 10/16/23 Rx FLUoxetine HCL [PROzac] 20 mg PO DAILY #0 10/02/23 10/16/23 Rx Allergies Allergy/AdvReac Type Severity Reaction Status Date / Time carbamazepine [From Tegretol] Allergy Unknown Verified 10/16/23 09:06 gentamicin Allergy Rash/Hives Verified 10/16/23 09:06 hydroxychloroquine Allergy CAUSED Verified 10/16/23 09:06 [From Plaquenil] BLINDNESS vancomycin Allergy Rash/Hives Verified 10/16/23 09:06 Physical Exam Vitals: Vital Signs Temp Pulse Resp BP Pulse Ox 10/16/23 10:03 85 16 116/71 96 10/16/23 09:07 98.2 F 16 111/85 Intake and Output 10/16/23 10/16/23 10/16/23 06:59 14:59 22:59 Other: Weight 58.967 kg Results CBC & Chem 7: 10/16/23 10:20 10/16/23 10:20 Labs: Abnormal Lab Results - Last 24 Hours (Table) 10/16/23 10/16/23 10/16/23 Range/Units 10:20 10:20 10:20 RBC 3.39 L (3.80-5.40) m/uL Hgb 9.7 L D (11.4-16.0) gm/dL Hct 28.4 L (34.0-46.0) % Lymphocytes # 0.8 L (1.0-4.8) k/uL Sodium 126 L (137-145) mmol/L Chloride 88 L (98-107) mmol/L BUN 65 H (7-17) mg/dL Creatinine 10.34 H* (0.52-1.04) mg/dL Plasma Lactic Acid Anmol 0.6 L (0.7-2.0) mmol/L AST 48 H (14-36) U/L Alkaline Phosphatase 153 H (38-126) U/L Troponin I (0.000-0.034) ng/mL Total Protein 5.1 L (6.3-8.2) g/dL Albumin 2.7 L (3.5-5.0) g/dL 10/16/23 Range/Units 10:20 RBC (3.80-5.40) m/uL Hgb (11.4-16.0) gm/dL Hct (34.0-46.0) % Lymphocytes # (1.0-4.8) k/uL Sodium (137-145) mmol/L Chloride (98-107) mmol/L BUN (7-17) mg/dL Creatinine (0.52-1.04) mg/dL Plasma Lactic Acid Anmol (0.7-2.0) mmol/L AST (14-36) U/L Alkaline Phosphatase (38-126) U/L Troponin I 0.074 H* (0.000-0.034) ng/mL Total Protein (6.3-8.2) g/dL Albumin (3.5-5.0) g/dL
--- NOTE | 2023-10-16 16:37 | P.NPCON ---
History of Present Illness - Reason for Consult end stage renal disease - History of Present Illness Reason for consult : ESRD HPI: Patient is a 68 y/o F seen for ESRD. She is maintained on peritoneal dialysis. Denies any problems with PD exchanges. No abdominal pain. States she has been feeling weak for the last week or so. Oral intake is decreased. No nausea or vomiting. No chest pain or shortness or breath. Hx of SLE but not on any meds now. No edema. No fever or chills. Recently had seizure and was started on keppra. BP stable. No dizziness or falls but only able to walk short distances. Lives with . VS stable. HEENT: No JVD. HEART: regular rate and rhythm. Abdomen: soft, non-tender. Ext: No edema. Past Medical History Past Medical History: CVA/TIA, Deep Vein Thrombosis (DVT), Eye Disorder, Hyperlipidemia, Hypertension, Myocardial Infarction ([place]), Renal Disease, Seizure Disorder Additional Past Medical History / Comment(s): CVA-2018-NO RESIDUAL PROBLEMS. DVT BILAT LEGS. LEGALLY BLIND R/T PLAQUENIL. HX LUPUS. SEIZURE R/T LUPUS-LAST ONE 4-5 YEARS AGO Last Myocardial Infarction Date:: 2016 History of Any Multi-Drug Resistant Organisms: None Reported Past Surgical History: Heart Catheterization With Stent, Tonsillectomy Additional Past Surgical History / Comment(s): SKIN GRAFT FROM RT ARM TO RT LEG. COLONOSCOPY Past Anesthesia/Blood Transfusion Reactions: No Reported Reaction Date of Last Stent Placement:: 2016 Past Psychological History: Anxiety, Depression Smoking Status: Never smoker Past Alcohol Use History: Occasional Past Drug Use History: None Reported - Past Family History Father Family Medical History: Cancer Medications and Allergies Home Medications Medication Instructions Recorded Confirmed Type Atorvastatin [Lipitor] 80 mg PO HS 01/04/22 10/16/23 History Calcium Acetate [PhosLo] 1,334 mg PO DAILY PRN 09/29/23 10/16/23 History Calcium Acetate [PhosLo] 1,334 mg PO TID-W/MEALS 09/29/23 10/16/23 History Furosemide [Lasix] 80 mg PO DAILY 09/29/23 10/16/23 History Lactulose 20 gm PO DAILY PRN 09/29/23 10/16/23 History Megestrol [Megace] 40 mg PO DAILY 09/29/23 10/16/23 History Midodrine [ProAmatine] 5 mg PO DAILY PRN 09/29/23 10/16/23 History busPIRone HCl [Buspar] 5 mg PO BID 09/29/23 10/16/23 History traZODone HCL [Desyrel] 50 mg PO HS 09/29/23 10/16/23 History levETIRAcetam [Keppra] 500 mg PO Q12HR 90 Days #180 tab 09/30/23 10/16/23 Rx FLUoxetine HCL [PROzac] 20 mg PO DAILY #0 10/02/23 10/16/23 Rx Allergies Allergy/AdvReac Type Severity Reaction Status Date / Time carbamazepine [From Tegretol] Allergy Unknown Verified 10/16/23 09:06 gentamicin Allergy Rash/Hives Verified 10/16/23 09:06 hydroxychloroquine Allergy CAUSED Verified 10/16/23 09:06 [From Plaquenil] BLINDNESS vancomycin Allergy Rash/Hives Verified 10/16/23 09:06 Physical Exam Vitals: Vital Signs Temp Pulse Resp BP Pulse Ox 10/16/23 10:03 85 16 116/71 96 10/16/23 09:07 98.2 F 16 111/85 Intake and Output 10/16/23 10/16/23 10/16/23 06:59 14:59 22:59 Other: Weight 58.967 kg Results - Lab Results Most recent lab results Calcium 8.6 mg/dL (8.4-10.2) 10/16/23 10:20 Magnesium 2.2 mg/dL (1.6-2.3) 10/16/23 10:20 10/16/23 10:20 10/16/23 10:20 Assessment and Plan Plan: Assessment: 1. ESRD on PD. 2. Generalized debility. 3. CKD-MBD. 4. Hx SLE - not on meds. 5. Anemia of CKD. 6. Recent seizure on keppra. 7. Hyponatremia secondary to CKD. Plan: Start PD with exchanges with 1.5% dextrose solution. Encouraged increased protein intake. Check phosphorus level. Check iron studies. Thank you for the consult. I will continue to follow the patient with you during her hospital stay.
[2023-10-16] MEDS: CALCIUM ACETATE 667 MG TAB PO SCH (17:36)
[2023-10-16] MEDS: DIALYSIS (PERIT 1.5%) 2,000 ML 30 G/2,000 ML BAG INTRAPERIT SCH (18:42)
[2023-10-16] MEDS ORDERED: busPIRone HCl 5 MG TAB PO SCH (21:00)
[2023-10-16] MEDS: ATORVASTATIN 80 MG TAB PO SCH (21:55)
[2023-10-16] MEDS: levETIRAcetam 500 MG TAB PO SCH (21:55)
[2023-10-16] MEDS: HEPARIN SODIUM,PORCINE 5,000 UNIT/ML 1 ML VIAL SQ SCH (21:56)
[2023-10-16] MEDS: traZODone HCL 50 MG TAB PO SCH (21:57)
[2023-10-17] MEDS: ACETAMINOPHEN TAB 325 MG TAB PO PRN (01:34)
[2023-10-17] MEDS: MEGESTROL 40 MG TAB PO SCH (08:50)
[2023-10-17] MEDS: FLUoxetine HCL 20 MG CAP PO SCH (08:50)
[2023-10-17] MEDS: FUROSEMIDE 80 MG TAB PO SCH (08:50)
[2023-10-17 09:04] LABS: Basophils % (A) 1 %; Eosinophils # (A) 0.1 k/uL (0-0.7); Eosinophils % (A) 1 %; HCT 29.1 % (34.0-46.0); HGB 9.8 gm/dL (11.4-16.0); Lymphocytes # (A) 0.8 k/uL (1.0-4.8); Lymphocytes % (A) 15 %; MCH 28.2 pg (25.0-35.0); MCHC 33.7 g/dL (31.0-37.0); MCV 83.6 fL (80.0-100.0); Monocytes # (A) 0.4 k/uL (0-1.0); Monocytes % (A) 8 %; Neutrophils # (A) 3.8 k/uL (1.3-7.7); Neutrophils % (A) 73 %; Platelet Count 178 k/uL (150-450); RBC 3.49 m/uL (3.80-5.40); RDW 13.6 % (11.5-15.5); WBC 5.3 k/uL (3.8-10.6)
[2023-10-17 09:41] LABS: ALT 31 U/L (4-34); AST 52 U/L (14-36); African American GFR (CKD) 4 (>60 ml/min/1.73 sqM); Alkaline Phosphatase 106 U/L (38-126); Anion Gap 13 mmol/L; Blood Urea Nitrogen 63 mg/dL (7-17); Calcium 9.4 mg/dL (8.4-10.2); Carbon Dioxide 25 mmol/L (22-30); Chloride 89 mmol/L (98-107); Glucose 98 mg/dL (74-99); Magnesium 2.4 mg/dL (1.6-2.3); Non-African American GFR(CKD) 3 (>60 ml/min/1.73 sqM); Phosphorus 5.9 mg/dL (2.5-4.5); Potassium 3.5 mmol/L (3.5-5.1); Sodium 127 mmol/L (137-145); Total Bilirubin 0.4 mg/dL (0.2-1.3); Total Protein 5.4 g/dL (6.3-8.2)
--- NOTE | 2023-10-17 11:58 | P.PN ---
Subjective Patient is seen in follow-up for end-stage renal disease. She is maintained on peritoneal dialysis. Oral intake is fair. No problems with PD exchanges. Hemodynamically stable. Vital signs are stable. General: No acute distress. HEENT: Head exam is unremarkable. LUNGS: No audible rhonchi or wheezes. HEART: Rate and Rhythm are regular. ABDOMEN: Nontender. EXTREMITITES: No edema. Objective - Vital Signs Vital signs: Vital Signs Temp 98.2 F 10/16/23 09:07 Pulse 108 H 10/17/23 06:00 Resp 18 10/17/23 06:00 BP 103/68 10/17/23 06:00 Pulse Ox 96 10/17/23 06:00 FiO2 Intake & Output 10/16/23 10/17/23 10/17/23 18:59 06:59 18:59 Weight 58.967 kg - Labs CBC & Chem 7: 10/17/23 08:29 10/17/23 08:29 Labs: Abnormal Lab Results - Last 24 Hours (Table) 10/16/23 10/16/23 10/16/23 Range/Units 10:20 10:20 10:20 RBC 3.39 L (3.80-5.40) m/uL Hgb 9.7 L D (11.4-16.0) gm/dL Hct 28.4 L (34.0-46.0) % Lymphocytes # 0.8 L (1.0-4.8) k/uL Sodium 126 L (137-145) mmol/L Chloride 88 L (98-107) mmol/L BUN 65 H (7-17) mg/dL Creatinine 10.34 H* (0.52-1.04) mg/dL Plasma Lactic Acid Anmol 0.6 L (0.7-2.0) mmol/L Phosphorus (2.5-4.5) mg/dL Magnesium (1.6-2.3) mg/dL AST 48 H (14-36) U/L Alkaline Phosphatase 153 H (38-126) U/L Troponin I (0.000-0.034) ng/mL Total Protein 5.1 L (6.3-8.2) g/dL Albumin 2.7 L (3.5-5.0) g/dL 10/16/23 10/16/23 10/16/23 Range/Units 10:20 16:39 19:28 RBC (3.80-5.40) m/uL Hgb (11.4-16.0) gm/dL Hct (34.0-46.0) % Lymphocytes # (1.0-4.8) k/uL Sodium (137-145) mmol/L Chloride (98-107) mmol/L BUN (7-17) mg/dL Creatinine (0.52-1.04) mg/dL Plasma Lactic Acid Anoml (0.7-2.0) mmol/L Phosphorus (2.5-4.5) mg/dL Magnesium (1.6-2.3) mg/dL AST (14-36) U/L Alkaline Phosphatase (38-126) U/L Troponin I 0.074 H* 0.070 H* 0.077 H* (0.000-0.034) ng/mL Total Protein (6.3-8.2) g/dL Albumin (3.5-5.0) g/dL 10/17/23 10/17/23 Range/Units 08:29 08:29 RBC 3.49 L (3.80-5.40) m/uL Hgb 9.8 L (11.4-16.0) gm/dL Hct 29.1 L (34.0-46.0) % Lymphocytes # 0.8 L (1.0-4.8) k/uL Sodium 127 L (137-145) mmol/L Chloride 89 L (98-107) mmol/L BUN 63 H (7-17) mg/dL Creatinine 10.66 H* (0.52-1.04) mg/dL Plasma Lactic Acid Anmol (0.7-2.0) mmol/L Phosphorus 5.9 H (2.5-4.5) mg/dL Magnesium 2.4 H (1.6-2.3) mg/dL AST 52 H (14-36) U/L Alkaline Phosphatase (38-126) U/L Troponin I (0.000-0.034) ng/mL Total Protein 5.4 L (6.3-8.2) g/dL Albumin 3.0 L (3.5-5.0) g/dL Assessment and Plan Plan: Assessment: 1. ESRD on PD. 2. Generalized debility. 3. CKD-MBD. Phosphorus level 5.9 today. On PhosLo. 4. Hx SLE - not on meds. 5. Anemia of CKD. 6. Recent seizure on keppra. 7. Hyponatremia secondary to CKD. Better. Plan: Maintain PD with exchanges with 1.5% dextrose solution. Encouraged increased protein intake. Follow-up iron studies.
[2023-10-17] MEDS: POTASSIUM CHLORIDE ER 20 MEQ TAB.ER PO STA (12:27)
--- NOTE | 2023-10-17 13:02 | P.PN ---
Subjective Progress Note Date: 10/17/23 68 year old F with PMH of ESRD on PD, seizure disorder, history of CVA, HTN, CAD post stent presents to the ED for generalized weakness. Recently seen in the ED on 09/29, 10/05, 10/10 for possible seizure, started on Keppra. Patient reports generalized weakness since then. Difficult time dealing with ADL and IADLs. Ambulates with the aid of walker. Denies slurred speech, confusion, focal neurological deficits. Denies chest pain, dizziness, shortness of breath or palpitations. Reports poor appetite and weight loss of 10-15 pounds over the past 2 weeks. In the ED, she underwent extensive evaluation. Vital signs BP 116/71, HR 85, RR 16, 96% on RA. CBC Hg 9.7 Hct 28.4. Coag panel within normal limits. CMP Na 126, Cl 88, BUN 65, Cr 10.34, ALT 48. Lactic acid 0.6. TSH 0.791. COVID, RSV, Flu negative. EKG sinus rhythm with ventricular rate of 85. CXR negative. Patient is admitted for further workup and management. 10/17 Patient was seen and examined. No complaints. Feeling weak. CBC Hg 9.8 Hct 29.1. CMP Na 127, Cl 89, BUN 63, Cr 10.66, alb 3. Phos 5.9. Mag 2.4. Troponin 0.07, 0.077. Review of yesterdays EKG shows sinus rhythm with first degree AV block and PACs. General: non toxic, no distress, appears at stated age, frail Derm: warm, dry Head: atraumatic, normocephalic, symmetric Eyes: EOMI, no lid lag, anicteric sclera Mouth: no lip lesion, mucus membranes moist Cardiovascular: S1S2 reg, diastolic murmur Lungs: CTA bilateral, no rhonchi, no rales , no accessory muscle use Abdominal: soft, nontender to palpation, no guarding, no appreciable organomegaly Ext: no gross muscle atrophy, no edema, no contractures Neuro: no focal neuro deficits Psych: Alert, oriented, appropriate affect Based on my assessment of this patient, this patient meets a high complexity level of care. Patient has an acute diagnosis of generalized weakness with elevated troponin that poses a threat to life or bodily function. Generalized weakness: PT and OT consulted. Fall precautions. Discussed with case management. Normocytic anemia: Acute drop since previous CBC. Denies active bleeding. Iron studies pending. Transfuse if Hg < 7. Troponin elevation: Troponin flat. Likely leak from CKD. ACS ruled out. Recent Echo 10/02 shows EF 35-40% with hypokinetic wall motion. Lipitor 80 mg PO QHS. She would benefit from beta aure and ASA given history of CAD will defer to Cardiology in the outpatient setting. Hyponatremia: With hypoCl. Possible dehydration? NS at 50 cc/hr. Caution with h/o HF. Transaminitis: Monitor. Chronic conditions: ESRD on PD, seizure disorder, history of CVA, HTN, CAD post stent CODE STATUS: FULL CODE. DVT Prophylaxis: Heparin SQ. GI Prophylaxis: Designated medical POA if patient is not able to make medical decisions for themselves: I have reviewed the following energy sales consultant notes: Nephrology note. I have reviewed the results of the following tests: CBC, Trop, CMP. Mag. Phos. I have ordered the following tests: Iron studies. BMP. CBC. I have discussed the care of this patient with the following independent historian: Case management. I have independently interpreted the following test below: I have discussed the management of this patient with the following physician: Objective - Vital Signs Vital signs: Vital Signs Temp 98.2 F 10/16/23 09:07 Pulse 108 H 10/17/23 06:00 Resp 18 10/17/23 06:00 BP 103/68 10/17/23 06:00 Pulse Ox 96 10/17/23 06:00 FiO2 Intake & Output 10/16/23 10/17/23 10/17/23 18:59 06:59 18:59 Weight 58.967 kg - Labs CBC & Chem 7: 10/17/23 08:29 10/17/23 08:29 Labs: Abnormal Lab Results - Last 24 Hours (Table) 10/16/23 10/16/23 10/17/23 Range/Units 16:39 19:28 08:29 RBC (3.80-5.40) m/uL Hgb (11.4-16.0) gm/dL Hct (34.0-46.0) % Lymphocytes # (1.0-4.8) k/uL Sodium 127 L (137-145) mmol/L Chloride 89 L (98-107) mmol/L BUN 63 H (7-17) mg/dL Creatinine 10.66 H* (0.52-1.04) mg/dL Phosphorus 5.9 H (2.5-4.5) mg/dL Magnesium 2.4 H (1.6-2.3) mg/dL AST 52 H (14-36) U/L Troponin I 0.070 H* 0.077 H* (0.000-0.034) ng/mL Total Protein 5.4 L (6.3-8.2) g/dL Albumin 3.0 L (3.5-5.0) g/dL 10/17/23 Range/Units 08:29 RBC 3.49 L (3.80-5.40) m/uL Hgb 9.8 L (11.4-16.0) gm/dL Hct 29.1 L (34.0-46.0) % Lymphocytes # 0.8 L (1.0-4.8) k/uL Sodium (137-145) mmol/L Chloride (98-107) mmol/L BUN (7-17) mg/dL Creatinine (0.52-1.04) mg/dL Phosphorus (2.5-4.5) mg/dL Magnesium (1.6-2.3) mg/dL AST (14-36) U/L Troponin I (0.000-0.034) ng/mL Total Protein (6.3-8.2) g/dL Albumin (3.5-5.0) g/dL
[2023-10-17 16:04] LABS: % Iron Saturation 44.75 (12.00-45.00); Iron 81 UG/DL (50-170); Total Iron Binding Capacity 181 UG/DL (228-460)
[2023-10-17] MEDS: LACTULOSE 20 GM/30 ML CUP PO PRN (18:53)
--- NOTE | 2023-10-18 12:29 | P.PN ---
Subjective Progress Note Date: 10/18/23 68 year old F with PMH of ESRD on PD, seizure disorder, history of CVA, HTN, CAD post stent presents to the ED for generalized weakness. Recently seen in the ED on 09/29, 10/05, 10/10 for possible seizure, started on Keppra. Patient reports generalized weakness since then. Difficult time dealing with ADL and IADLs. Ambulates with the aid of walker. Denies slurred speech, confusion, focal neurological deficits. Denies chest pain, dizziness, shortness of breath or palpitations. Reports poor appetite and weight loss of 10-15 pounds over the past 2 weeks. In the ED, she underwent extensive evaluation. Vital signs BP 116/71, HR 85, RR 16, 96% on RA. CBC Hg 9.7 Hct 28.4. Coag panel within normal limits. CMP Na 126, Cl 88, BUN 65, Cr 10.34, ALT 48. Lactic acid 0.6. TSH 0.791. COVID, RSV, Flu negative. EKG sinus rhythm with ventricular rate of 85. CXR negative. Patient is admitted for further workup and management. 10/17 Patient was seen and examined. No complaints. Feeling weak. CBC Hg 9.8 Hct 29.1. CMP Na 127, Cl 89, BUN 63, Cr 10.66, alb 3. Phos 5.9. Mag 2.4. Troponin 0.07, 0.077. Review of yesterdays EKG shows sinus rhythm with first degree AV block and PACs. 10/18 Patient was seen and examined. No complaints. Wanting a warm blanket. Plans for [facility] but she will need to be converted to HD first. Vascular surgery consulted. Iron studies shows Fe 81, TIBC 181, Ferritin 1950. Folate 16.6, B12 752. General: non toxic, no distress, appears at stated age, frail Derm: warm, dry Head: atraumatic, normocephalic, symmetric Eyes: EOMI, no lid lag, anicteric sclera Mouth: no lip lesion, mucus membranes moist Cardiovascular: S1S2 reg, diastolic murmur Lungs: CTA bilateral, no rhonchi, no rales , no accessory muscle use Abdominal: soft, nontender to palpation, no guarding, no appreciable orga nomegaly Ext: no gross muscle atrophy, no edema, no contractures Neuro: no focal neuro deficits Psych: Alert, oriented, appropriate affect Based on my assessment of this patient, this patient meets a high complexity level of care. Patient has an acute diagnosis of generalized weakness with elevated troponin that poses a threat to life or bodily function. Generalized weakness: PT and OT consulted. Fall precautions. Discussed with case management. Normocytic anemia: Acute drop since previous CBC. Denies active bleeding. Iron studies showing AOCD. Transfuse if Hg < 7. Troponin elevation: Troponin flat. Likely leak from CKD. ACS ruled out. Recent Echo 10/02 shows EF 35-40% with hypokinetic wall motion. Lipitor 80 mg PO QHS. She would benefit from beta aure and ASA given history of CAD will defer to Cardiology in the outpatient setting. Hyponatremia: With hypoCl. Possible dehydration? NS at 50 cc/hr. Caution with h/o HF. Transaminitis: Monitor. Chronic conditions: ESRD on PD, seizure disorder, history of CVA, HTN, CAD post stent CODE STATUS: FULL CODE. DVT Prophylaxis: Heparin SQ. GI Prophylaxis: Designated medical POA if patient is not able to make medical decisions for themselves: I have reviewed the following talent acquisition consultant notes: Nephrology note. I have reviewed the results of the following tests: Iron studies. I have ordered the following tests: BMP. CBC. I have discussed the care of this patient with the following independent historian: Case management. I have independently interpreted the following test below: I have discussed the management of this patient with the following physician: Objective - Vital Signs Vital signs: Vital Signs Temp 98.7 F 10/18/23 12:08 Pulse 103 H 10/18/23 12:08 Resp 17 10/18/23 12:08 BP 110/65 10/18/23 12:08 Pulse Ox 95 10/18/23 12:08 FiO2 - Labs CBC & Chem 7: 10/17/23 08:29 10/17/23 08:29 Labs: Abnormal Lab Results - Last 24 Hours (Table) 10/17/23 Range/Units 08:29 TIBC 181 L (228-460) UG/DL Transferrin 129.0 L (204.0-354.0) mg/dL Ferritin 1950.0 H (10.0-291.0) ng/mL
--- NOTE | 2023-10-18 12:45 | P.PN ---
Subjective Patient is seen in follow-up for end-stage renal disease. She is maintained on peritoneal dialysis. Oral intake is fair. No problems with PD exchanges. Hemodynamically stable. Will be going to rehab short-term. Vital signs are stable. General: No acute distress. HEENT: Head exam is unremarkable. LUNGS: No audible rhonchi or wheezes. HEART: Rate and Rhythm are regular. ABDOMEN: Nontender. EXTREMITITES: No edema. Objective - Vital Signs Vital signs: Vital Signs Temp 98.7 F 10/18/23 12:08 Pulse 103 H 10/18/23 12:08 Resp 17 10/18/23 12:08 BP 110/65 10/18/23 12:08 Pulse Ox 95 10/18/23 12:08 FiO2 - Labs CBC & Chem 7: 10/17/23 08:29 10/17/23 08:29 Labs: Abnormal Lab Results - Last 24 Hours (Table) 10/17/23 Range/Units 08:29 TIBC 181 L (228-460) UG/DL Transferrin 129.0 L (204.0-354.0) mg/dL Ferritin 1950.0 H (10.0-291.0) ng/mL Assessment and Plan Plan: Assessment: 1. ESRD on PD. 2. Generalized debility. 3. CKD-MBD. Phosphorus level 5.9 dated October 17, 2023. On PhosLo. 4. Hx SLE - not on meds. 5. Anemia of CKD. Iron replete. 6. Recent seizure on keppra. 7. Hyponatremia secondary to CKD. Plan: Maintain PD with exchanges with 1.5% dextrose solution. Encouraged increased protein intake. Add Aranesp. Consult vascular surgery for permacath placement. Patient will be going to subacute rehab so will be transitioned to hemodialysis. Once she returns home, she will resume peritoneal dialysis. Stop PD exchanges tonight. Plan for hemodialysis tomorrow.
--- NOTE | 2023-10-18 13:02 | P.GSCN ---
History of Present Illness History of present illness: 68-year-old white female patient has a history of acute chronic renal failure on peritoneal dialysis. Patient is going to have consulted for placement of a dialysis catheter. Patient has no problems with peritoneal dialysis catheter. Chest is clear good entry both lungs Abdomen soft nontender patient has a peritoneal dialysis catheter Vascular brachial radial femoral pulses are present Plan is placement of dialysis catheter risk and complication discussed Past Medical History Past Medical History: CVA/TIA, Deep Vein Thrombosis (DVT), Eye Disorder, Hyperlipidemia, Hypertension, Myocardial Infarction (NM), Renal Disease, Seizure Disorder Additional Past Medical History / Comment(s): CVA-2018-NO RESIDUAL PROBLEMS. DVT BILAT LEGS. LEGALLY BLIND R/T PLAQUENIL. HX LUPUS. SEIZURE R/T LUPUS-LAST ONE 4-5 YEARS AGO Last Myocardial Infarction Date:: 2016 History of Any Multi-Drug Resistant Organisms: None Reported Past Surgical History: Heart Catheterization With Stent, Tonsillectomy Additional Past Surgical History / Comment(s): SKIN GRAFT FROM RT ARM TO RT LEG. COLONOSCOPY Past Anesthesia/Blood Transfusion Reactions: No Reported Reaction Date of Last Stent Placement:: 2016 Past Psychological History: Anxiety, Depression Smoking Status: Never smoker Past Alcohol Use History: Occasional Past Drug Use History: None Reported - Past Family History Father Family Medical History: Cancer Medications and Allergies Home Medications Medication Instructions Recorded Confirmed Type Atorvastatin [Lipitor] 80 mg PO HS 01/04/22 10/16/23 History Calcium Acetate [PhosLo] 1,334 mg PO DAILY PRN 09/29/23 10/16/23 History Calcium Acetate [PhosLo] 1,334 mg PO TID-W/MEALS 09/29/23 10/16/23 History Furosemide [Lasix] 80 mg PO DAILY 09/29/23 10/16/23 History Lactulose 20 gm PO DAILY PRN 09/29/23 10/16/23 History Megestrol [Megace] 40 mg PO DAILY 09/29/23 10/16/23 History Midodrine [ProAmatine] 5 mg PO DAILY PRN 09/29/23 10/16/23 History busPIRone HCl [Buspar] 5 mg PO BID 09/29/23 10/16/23 History traZODone HCL [Desyrel] 50 mg PO HS 09/29/23 10/16/23 History levETIRAcetam [Keppra] 500 mg PO Q12HR 90 Days #180 tab 09/30/23 10/16/23 Rx FLUoxetine HCL [PROzac] 20 mg PO DAILY #0 10/02/23 10/16/23 Rx Allergies Allergy/AdvReac Type Severity Reaction Status Date / Time carbamazepine [From Tegretol] Allergy Unknown Verified 10/16/23 09:06 gentamicin Allergy Rash/Hives Verified 10/16/23 09:06 hydroxychloroquine Allergy CAUSED Verified 10/16/23 09:06 [From Plaquenil] BLINDNESS vancomycin Allergy Rash/Hives Verified 10/16/23 09:06 Surgical - Exam Vital Signs Temp Resp BP 98.2 F 16 111/85 10/16/23 09:07 10/16/23 09:07 10/16/23 09:07 Results - Labs 10/17/23 08:29 10/17/23 08:29 Abnormal Lab Results - Last 24 Hours (Table) 10/17/23 Range/Units 08:29 TIBC 181 L (228-460) UG/DL Transferrin 129.0 L (204.0-354.0) mg/dL Ferritin 1950.0 H (10.0-291.0) ng/mL
[2023-10-18] MEDS: LIDOCAINE 1% INJ 10MG/ML (20 ML MDV) SQ ONE (13:39)
[2023-10-18] MEDS: IV FLUID CONTINUATION 1,000 ML IV ONE (14:19)
[2023-10-18] MEDS ORDERED: fentaNYL (PF) 50 MCG/ML 2 ML AMP ONE (14:34)
[2023-10-18] MEDS: fentaNYL (PF) 50 MCG/ML 2 ML AMP IVP ONE (14:37)
[2023-10-18] MEDS: MIDAZOLAM 2 MG/2 ML VIAL IVP ONE ×2 (14:40)
[2023-10-18] MEDS: IOPAMIDOL-370 100ML BTL INJ ONE (14:52)
[2023-10-18] MEDS ORDERED: LIDOCAINE 1% INJ 10MG/ML (20 ML MDV) ONE (15:02)
--- NOTE | 2023-10-18 16:19 | P.PCN ---
Description of Procedure: Pre-op diagnosis acute chronic renal failure Postoperative same Placement of right IJ catheter Patient brought to the [employer] [facility] right side the neck and chest was prepped and draped by sterile manner. 1% lidocaine plain infiltrated the neck area and chest area ultrasound-guided micropuncture needle introduced to the right intrajugular vein micropuncture guidewire was passed and then 4 Czech dilator advanced over the guidewire. A tunnel was created through the tunnel view about 19 cm dialysis catheter. The dilator was advanced over the guidewire. Then replace a sheath on the top of the guidewire and fluoroscopic control dialysis catheter produced through the sheath sheath was removed tip of the catheter in superior vena cava atrial junction flushed with heparin saline hep-locked secured with 3-0 nylon dressing applied patient tolerated procedure well recommend x-ray of the chest
[2023-10-18] MEDS: DARBEPOETIN ALFA 40 MCG/0.4 ML SYRINGE SQ SCH (16:25)
--- NOTE | 2023-10-18 17:29 | XR ---
EXAMINATION TYPE: XR chest 1V confirm line plcmt DATE OF EXAM: 10/18/2023 4:51 PM CLINICAL INDICATION:Female, 68 years old with history of DIALYSIS CATH PLACEMENT; [facility] COMPARISON: Chest radiographs from 10/16/2023 TECHNIQUE: XR chest 1V confirm line plcmt Frontal view of the chest. FINDINGS: Lungs/Pleura: There is flattening of the diaphragm with increased lucency of the lungs. No evidence o f pneumothorax, pleural effusion or focal consolidation. Pulmonary vascularity: Unremarkable. Heart/mediastinum: Cardiomediastinal silhouette is unremarkable. Atherosclerotic calcifications are seen in the aorta. Musculoskeletal: No acute osseous pathology. Other findings: None Lines/Tubes: Right internal jugular central venous catheter with distal tip at the cavoatrial junction. IMPRESSION: 1. Dialysis catheter with tip in appropriate position. 2. No acute cardiopulmonary disease/process.
--- NOTE | 2023-10-18 17:30 | IR ---
EXAMINATION TYPE: IR cvc insert central tunneled Intraoperative/procedural fluoroscopic services were provided. CLINICAL INDICATION:Female, 68 years old with history of PERM DIALYSIS CATH; , [facility] Total fluoroscopy time is 1.7 min. DAP: 1.438 Gycm2 Please see the operative/procedural note for further details.
[2023-10-18] MEDS: diphenhydrAMINE 50 MG/ML 1 ML VIAL IVP PRN (17:44)
[2023-10-18] MEDS: HYDROcodone/APAP 7.5-325MG 1 EACH TAB PO PRN (17:44)
[2023-10-18] MEDS: diphenhydrAMINE 50 MG/ML 1 ML VIAL IVP STA (20:14)
[2023-10-18] MEDS: LORazepam 1 MG TAB PO STA (20:23)
[2023-10-18] MEDS: MORPHINE SULFATE 2 MG/ML SYRINGE IVP STA (22:23)
[2023-10-19 09:58] LABS: HCT 26.9 % (34.0-46.0); MCH 28.5 pg (25.0-35.0); MCHC 33.4 g/dL (31.0-37.0); MCV 85.4 fL (80.0-100.0); Mean Platelet Volume 8.1; Platelet Count 169 k/uL (150-450); RBC 3.15 m/uL (3.80-5.40); WBC 5.5 k/uL (3.8-10.6)
--- NOTE | 2023-10-19 11:02 | P.PN ---
Subjective Progress Note Date: 10/19/23 68 year old F with PMH of ESRD on PD, seizure disorder, history of CVA, HTN, CAD post stent presents to the ED for generalized weakness. Recently seen in the ED on 09/29, 10/05, 10/10 for possible seizure, started on Keppra. Patient reports generalized weakness since then. Difficult time dealing with ADL and IADLs. Ambulates with the aid of walker. Denies slurred speech, confusion, focal neurological deficits. Denies chest pain, dizziness, shortness of breath or palpitations. Reports poor appetite and weight loss of 10-15 pounds over the past 2 weeks. In the ED, she underwent extensive evaluation. Vital signs BP 116/71, HR 85, RR 16, 96% on RA. CBC Hg 9.7 Hct 28.4. Coag panel within normal limits. CMP Na 126, Cl 88, BUN 65, Cr 10.34, ALT 48. Lactic acid 0.6. TSH 0.791. COVID, RSV, Flu negative. EKG sinus rhythm with ventricular rate of 85. CXR negative. Patient is admitted for further workup and management. 10/17 Patient was seen and examined. No complaints. Feeling weak. CBC Hg 9.8 Hct 29.1. CMP Na 127, Cl 89, BUN 63, Cr 10.66, alb 3. Phos 5.9. Mag 2.4. Troponin 0.07, 0.077. Review of yesterdays EKG shows sinus rhythm with first degree AV block and PACs. 10/18 Patient was seen and examined. No complaints. Wanting a warm blanket. Plans for [facility] but she will need to be converted to HD first. Vascular surgery consulted. Iron studies shows Fe 81, TIBC 181, Ferritin 1950. Folate 16.6, B12 752. 10/19 Patient was seen and examined. She reports uncontrolled itching all over her body. R IJ placed by Vascular surgery yesterday. Plans for hemodialysis today. Unfortunately, chair time was not able to be coordinated with accepting SNF by case management yesterday. Discharge planning will be delayed until Saturday atleast. CBC Hg 9, Hct 26.9. BMP pending. General: non toxic, no distress, appears at stated age, frail Derm: warm, dry Head: atraumatic, normocephalic, symmetric Eyes: EOMI, no lid lag, anicteric sclera Mouth: no lip lesion, mucus membranes moist Cardiovascular: S1S2 reg, diastolic murmur Lungs: CTA bilateral, no rhonchi, no rales , no accessory muscle use Abdominal: soft, nontender to palpation, no guarding, no appreciable organomegaly Ext: no gross muscle atrophy, no edema, no contractures Neuro: no focal neuro deficits Psych: Alert, oriented, appropriate affect Based on my assessment of this patient, this patient meets a high complexity level of care. Patient has an acute diagnosis of generalized weakness with elevated troponin that poses a threat to life or bodily function. Generalized weakness: PT and OT consulted. Fall precautions. Plans for SNF. Pruritis: Benadryl 25 mg IV Q6H PRN, Atarax 25 mg PO QID PRN. Normocytic anemia: Acute drop since previous CBC. Stable during this hospitalization. Denies active bleeding. Iron studies showing AOCD. Transfuse if Hg < 7. Troponin elevation: Troponin flat. Likely leak from CKD. ACS ruled out. Recent Echo 10/02 shows EF 35-40% with hypokinetic wall motion. Lipitor 80 mg PO QHS. She would benefit from beta aure and ASA given history of CAD will defer to Cardiology in the outpatient setting. Hyponatremia: With hypoCl. Possible dehydration? DC NS and encourage hydration by mouth. Caution with h/o HF. Transaminitis: Monitor. Chronic conditions: ESRD on PD, seizure disorder, history of CVA, HTN, CAD post stent CODE STATUS: FULL CODE. DVT Prophylaxis: Heparin SQ. GI Prophylaxis: Designated medical POA if patient is not able to make medical decisions for themselves: I have reviewed the following medical social consultant notes: Nephrology, Vascular surgery, procedure note. I have reviewed the results of the following tests: CBC. I have ordered the following tests: BMP. I have discussed the care of this patient with the following independent historian: TAMMY. I have independently interpreted the following test below: I have discussed the management of this patient with the following physician: Objective - Vital Signs Vital signs: Vital Signs Temp 98.0 F 10/19/23 02:00 Pulse 64 10/19/23 02:00 Resp 18 10/19/23 02:00 BP 106/79 10/19/23 02:00 Pulse Ox 98 10/19/23 02:00 FiO2 Intake & Output 0210/19/23 10/19/23 18:59 06:59 18:59 Intake Total 300 Balance 300 Intake: IV 100 Intake, IV Titration 200 Amount Sodium Chloride 0.9% 1, 200 000 ml @ 50 mls/hr IV . Q20H [facility] Rx#:[id number] Other: Voiding Method Toilet Diaper # Voids 0 - Labs CBC & Chem 7: 10/19/23 09:32 10/17/23 08:29
[2023-10-19] MEDS: hydrOXYzine HCL 25 MG TAB PO PRN (11:04)
[2023-10-19 11:18] LABS: African American GFR (CKD) 4 (>60 ml/min/1.73 sqM); Anion Gap 11 mmol/L; Blood Urea Nitrogen 54 mg/dL (7-17); Calcium 9.2 mg/dL (8.4-10.2); Carbon Dioxide 23 mmol/L (22-30); Chloride 94 mmol/L (98-107); Glucose 96 mg/dL (74-99); Non-African American GFR(CKD) 3 (>60 ml/min/1.73 sqM); Potassium 3.8 mmol/L (3.5-5.1); Sodium 128 mmol/L (137-145)
--- NOTE | 2023-10-19 15:44 | P.PN ---
Subjective Progress Note Date: 10/19/23 Patient is a 68 y/o F seen for ESRD. She is having severe itchiness today despite benadryl and atarax. Tolerating first HD session today. VS stable. HEENT: No JVD. HEART: regular rate and rhythm. Abdomen: soft, non-tender. Ext: No edema. Objective - Vital Signs Vital signs: Vital Signs Temp 97.8 F 10/19/23 08:40 Pulse 64 10/19/23 08:40 Resp 18 10/19/23 08:40 BP 120/69 10/19/23 08:40 Pulse Ox 97 10/19/23 08:40 FiO2 Intake & Output 10/18/23 10/19/23 10/19/23 18:59 06:59 18:59 Intake Total 300 Balance 300 Intake: IV 100 Intake, IV Titration 200 Amount Sodium Chloride 0.9% 1, 200 000 ml @ 50 mls/hr IV . Q20H [facility] Rx#:[id number] Other: Voiding Method Toilet Diaper # Voids 0 - Labs CBC & Chem 7: 10/19/23 09:32 10/19/23 09:32 Labs: Abnormal Lab Results - Last 24 Hours (Table) 10/19/23 10/19/23 Range/Units 09:32 09:32 RBC 3.15 L (3.80-5.40) m/uL Hgb 9.0 L (11.4-16.0) gm/dL Hct 26.9 L (34.0-46.0) % Sodium 128 L (137-145) mmol/L Chloride 94 L (98-107) mmol/L BUN 54 H (7-17) mg/dL Creatinine 10.36 H* (0.52-1.04) mg/dL Assessment and Plan Plan: Assessment: 1. ESRD on PD. 2. Generalized debility. 3. CKD-MBD. Phosphorus level 5.9 dated October 17, 2023. On PhosLo. 4. Hx SLE - not on meds. 5. Anemia of CKD. Iron replete. 6. Recent seizure on keppra. 7. Hyponatremia secondary to CKD. Plan: Encouraged increased protein intake. Add Aranesp. Vascular surgery for permacath placement 10/18. Patient will be going to subacute rehab so will be transitioned to hemodialysis. Once she returns home, she will resume peritoneal dialysis. Seen while on HD today.
[2023-10-20 09:39] LABS: Hepatitis B Surface Antigen Nonreactive
[2023-10-20 10:55] LABS: Hepatitis B Surface AB- Quant 5.4 mIU/mL
--- NOTE | 2023-10-20 12:37 | P.PN ---
Subjective Progress Note Date: 10/20/23 68 year old F with PMH of ESRD on PD, seizure disorder, history of CVA, HTN, CAD post stent presents to the ED for generalized weakness. Recently seen in the ED on 09/29, 10/05, 10/10 for possible seizure, started on Keppra. Patient reports generalized weakness since then. Difficult time dealing with ADL and IADLs. Ambulates with the aid of walker. Denies slurred speech, confusion, focal neurological deficits. Denies chest pain, dizziness, shortness of breath or palpitations. Reports poor appetite and weight loss of 10-15 pounds over the past 2 weeks. In the ED, she underwent extensive evaluation. Vital signs BP 116/71, HR 85, RR 16, 96% on RA. CBC Hg 9.7 Hct 28.4. Coag panel within normal limits. CMP Na 126, Cl 88, BUN 65, Cr 10.34, ALT 48. Lactic acid 0.6. TSH 0.791. COVID, RSV, Flu negative. EKG sinus rhythm with ventricular rate of 85. CXR negative. Patient is admitted for further workup and management. 10/17 Patient was seen and examined. No complaints. Feeling weak. CBC Hg 9.8 Hct 29.1. CMP Na 127, Cl 89, BUN 63, Cr 10.66, alb 3. Phos 5.9. Mag 2.4. Troponin 0.07, 0.077. Review of yesterdays EKG shows sinus rhythm with first degree AV block and PACs. 10/18 Patient was seen and examined. No complaints. Wanting a warm blanket. Plans for [facility] but she will need to be converted to HD first. Vascular surgery consulted. Iron studies shows Fe 81, TIBC 181, Ferritin 1950. Folate 16.6, B12 752. 10/19 Patient was seen and examined. She reports uncontrolled itching all over her body. R IJ placed by Vascular surgery yesterday. Plans for hemodialysis today. Unfortunately, chair time was not able to be coordinated with accepting SNF by case management yesterday. Discharge planning will be delayed until Saturday at least. CBC Hg 9, Hct 26.9. BMP Na 128, Cl 94, BUN 54, Cr 10.36. 10/20 Patient was seen and examined. Itching resolved. Successfully underwent HD yesterday. Hep B negative. Hopeful plans for discharge to SNF on Saturday. General: non toxic, no distress, appears at stated age, frail Derm: warm, dry Head: atraumatic, normocephalic, symmetric. R IJ Eyes: EOMI, no lid lag, anicteric sclera Mouth: no lip lesion, mucus membranes moist Cardiovascular: S1S2 reg, diastolic murmur Lungs: CTA bilateral, no rhonchi, no rales , no accessory muscle use Abdominal: soft, nontender to palpation, no guarding, no appreciable organomegaly Ext: no gross muscle atrophy, no edema, no contractures Neuro: no focal neuro deficits Psych: Alert, oriented, appropriate affect Based on my assessment of this patient, this patient meets a high complexity level of care. Patient has an acute diagnosis of generalized weakness with elevated troponin that poses a threat to life or bodily function. Generalized weakness: PT and OT consulted. Fall precautions. Plans for SNF. Pruritis: Benadryl 25 mg IV Q6H PRN, Atarax 25 mg PO QID PRN. Normocytic anemia: Acute drop since previous CBC. Stable during this hospitalization. Denies active bleeding. Iron studies showing AOCD. Transfuse if Hg < 7. Troponin elevation: Troponin flat. Likely leak from CKD. ACS ruled out. Recent Echo 10/02 shows EF 35-40% with hypokinetic wall motion. Lipitor 80 mg PO QHS. She would benefit from beta aure and ASA given history of CAD will defer to Cardiology in the outpatient setting. Hyponatremia: With hypoCl. Possible dehydration? DC NS and encourage hydration by mouth. Caution with h/o HF. Transaminitis: Monitor. Chronic conditions: ESRD on PD, seizure disorder, history of CVA, HTN, CAD post stent CODE STATUS: FULL CODE. DVT Prophylaxis: Heparin SQ. GI Prophylaxis: Designated medical POA if patient is not able to make medical decisions for themselves: I have reviewed the following business risk consultant notes: Nephrology note. I have reviewed the results of the following tests: Hep B panel. I have ordered the following tests: I have discussed the care of this patient with the following independent historian: I have independently interpreted the following test below: I have discussed the management of this patient with the following physician: Objective - Vital Signs Vital signs: Vital Signs Temp 98.5 F 10/20/23 07:45 Pulse 89 02/18/24 07:45 Resp 16 10/20/23 07:45 BP 106/61 10/20/23 07:45 Pulse Ox 98 10/20/23 07:45 FiO2 Intake & Output 10/19/23 10/20/23 10/20/23 18:59 06:59 18:59 Intake Total 400 Output Total 900 Balance -500 Intake: Hemodialysis 400 Output: Hemodialysis 900 Other: Voiding Method Toilet Toilet Diaper Diaper # Voids 0 - Labs CBC & Chem 7: 10/19/23 09:32 10/19/23 09:32 Labs: Abnormal Lab Results - Last 24 Hours (Table) 10/19/23 10/19/23 Range/Units 09:32 09:32 RBC 3.15 L (3.80-5.40) m/uL Hgb 9.0 L (11.4-16.0) gm/dL Hct 26.9 L (34.0-46.0) % Sodium 128 L (137-145) mmol/L Chloride 94 L (98-107) mmol/L BUN 54 H (7-17) mg/dL Creatinine 10.36 H* (0.52-1.04) mg/dL
--- NOTE | 2023-10-20 12:56 | P.PN ---
Subjective Progress Note Date: 10/20/23 Patient is a 68 y/o F seen for ESRD. Tolerated dialysis yesterday, itchiness resolved shortly after cessation of her treatment. Currently feels well and denies any other complaints. VS stable. HEENT: No JVD. HEART: regular rate and rhythm. Abdomen: soft, non-tender. Ext: No edema. Objective - Vital Signs Vital signs: Vital Signs Temp 98.5 F 10/20/23 07:45 Pulse 89 10/20/23 07:45 Resp 16 10/20/23 07:45 BP 106/61 10/20/23 07:45 Pulse Ox 98 10/20/23 07:45 FiO2 Intake & Output 10/19/23 10/20/23 10/20/23 18:59 06:59 18:59 Intake Total 400 Output Total 900 Balance -500 Intake: Hemodialysis 400 Output: Hemodialysis 900 Other: Voiding Method Toilet Toilet Diaper Diaper # Voids 0 - Labs CBC & Chem 7: 10/19/23 09:32 10/19/23 09:32 Assessment and Plan Plan: Assessment: 1. ESRD on PD. 2. Generalized debility. 3. CKD-MBD. Phosphorus level 5.9 dated October 17, 2023. On PhosLo. 4. Hx SLE - not on meds. 5. Anemia of CKD. Iron replete. 6. Recent seizure on keppra. 7. Hyponatremia secondary to CKD. Plan: Encouraged increased protein intake. Continue Aranesp. Vascular surgery for permacath placement 10/18. Patient will be going to subacute rehab so will be transitioned to hemodialysis. Once she returns home, she will resume peritoneal dialysis. Pruritus likely related to dialyzer reaction.
[2023-10-20] MEDS: busPIRone HCl 5 MG TAB PO SCH (13:22)
[2023-10-21] MEDS: ALPRAZolam 0.5 MG TAB PO STA (04:08)
[2023-10-21 08:10] LABS: HCT 23.2 % (34.0-46.0); HGB 7.9 gm/dL (11.4-16.0); MCH 28.8 pg (25.0-35.0); MCHC 33.8 g/dL (31.0-37.0); MCV 85.2 fL (80.0-100.0); Mean Platelet Volume 7.7; Platelet Count 152 k/uL (150-450); RBC 2.73 m/uL (3.80-5.40); WBC 4.3 k/uL (3.8-10.6)
[2023-10-21 08:36] VITALS: RESP 16
[2023-10-21 08:49] LABS: African American GFR (CKD) 7 (>60 ml/min/1.73 sqM); Anion Gap 4 mmol/L; Blood Urea Nitrogen 32 mg/dL (7-17); Carbon Dioxide 26 mmol/L (22-30); Chloride 95 mmol/L (98-107); Glucose 85 mg/dL (74-99); Non-African American GFR(CKD) 6 (>60 ml/min/1.73 sqM); Potassium 3.8 mmol/L (3.5-5.1); Sodium 125 mmol/L (137-145)
--- NOTE | 2023-10-21 11:33 | P.DS ---
Providers Date of admission: 10/17/23 12:02 Expected date of discharge: 10/21/23 Attending physician: Naya Serrano DO Consults: 10/16/23 13:34 Consult Physician Routine Consulting Provider: Candelario Hawkins Consult Reason/Comments: crf Do you want consulting provider notified?: Yes 10/18/23 11:03 Consult Physician Routine Consulting Provider: Mejia Ga Consult Reason/Comments: hemodialysis access Do you want consulting provider notified?: Yes Primary care physician: [facility] Course: 68 year old F with PMH of ESRD on PD, seizure disorder, history of CVA, HTN, CAD post stent presents to the ED for generalized weakness. Recently seen in the ED on 09/29, 10/05, 10/10 for possible seizure, started on Keppra. Patient reports generalized weakness since then. Difficult time dealing with ADL and IADLs. Ambulates with the aid of walker. Denies slurred speech, confusion, focal neurological deficits. Denies chest pain, dizziness, shortness of breath or palpitations. Reports poor appetite and weight loss of 10-15 pounds over the past 2 weeks. In the ED, she underwent extensive evaluation. Vital signs BP 116/71, HR 85, RR 16, 96% on RA. CBC Hg 9.7 Hct 28.4. Coag panel within normal limits. CMP Na 126, Cl 88, BUN 65, Cr 10.34, ALT 48. Lactic acid 0.6. TSH 0.791. COVID, RSV, Flu negative. EKG shows sinus rhythm with first degree AV block and PACs. CXR negative. Patient is admitted for further workup and management. Plans to conver to HD in order to go to SNF. R IJ placed by Vascular surgery 10/18. Successfully underwent HD. Unfortunately, chair time was not able to be coordinated with accepting SNF by case management, discharge planning delayed until Saturday. 10/21 Patient was seen and examined. Reports fatigue. No other complaints. CBC Hg 7.9 Hct 23.2. BMP Na 125, Cl 95, BUN 32, Cr 6.7. Discussed with case management, plans for SNF today. General: non toxic, no distress, appears at stated age, frail Derm: warm, dry Head: atraumatic, normocephalic, symmetric. R IJ Eyes: EOMI, no lid lag, anicteric sclera Mouth: no lip lesion, mucus membranes moist Cardiovascular: S1S2 reg, diastolic murmur Lungs: CTA bilateral, no rhonchi, no rales , no accessory muscle use Abdominal: soft, nontender to palpation, no guarding, no appreciable organomegaly Ext: no gross muscle atrophy, no edema, no contractures Neuro: no focal neuro deficits Psych: Alert, oriented, appropriate affect Discharge Diagnosis: Generalized weakness Pruritis Normocytic anemia Troponin elevation Hyponatremia Transaminitis Chronic conditions: ESRD on PD, seizure disorder, history of CVA, HTN, CAD post stent This complex discharge took 35 minutes to complete. Patient Condition at Discharge: Stable Plan - Discharge Summary New Discharge Prescriptions: New HYDROcodone/APAP 7.5-325MG [[place] 7.5-325] 1 each PO Q6HR PRN #12 tab PRN Reason: Pain Continue Atorvastatin [Lipitor] 80 mg PO HS Calcium Acetate [PhosLo] 1,334 mg PO DAILY PRN PRN Reason: snacks Megestrol [Megace] 40 mg PO DAILY traZODone HCL [Desyrel] 50 mg PO HS Midodrine [ProAmatine] 5 mg PO DAILY PRN PRN Reason: SBP below 120 Lactulose 20 gm PO DAILY PRN PRN Reason: Constipation Calcium Acetate [PhosLo] 1,334 mg PO TID-W/MEALS busPIRone HCl [Buspar] 5 mg PO BID Furosemide [Lasix] 80 mg PO DAILY levETIRAcetam [Keppra] 500 mg PO Q12HR 90 Days #180 tab FLUoxetine HCL [PROzac] 20 mg PO DAILY #0 Discharge Medication List Atorvastatin [Lipitor] 80 mg PO HS 01/04/22 [History] Calcium Acetate [PhosLo] 1,334 mg PO DAILY PRN 09/29/23 [History] Calcium Acetate [PhosLo] 1,334 mg PO TID-W/MEALS 09/29/23 [History] Furosemide [Lasix] 80 mg PO DAILY 09/29/23 [History] Lactulose 20 gm PO DAILY PRN 09/29/23 [History] Megestrol [Megace] 40 mg PO DAILY 09/29/23 [History] Midodrine [ProAmatine] 5 mg PO DAILY PRN 09/29/23 [History] busPIRone HCl [Buspar] 5 mg PO BID 09/29/23 [History] traZODone HCL [Desyrel] 50 mg PO HS 09/29/23 [History] levETIRAcetam [Keppra] 500 mg PO Q12HR 90 Days #180 tab 09/30/23 [Rx] FLUoxetine HCL [PROzac] 20 mg PO DAILY #0 10/02/23 [Rx] HYDROcodone/APAP 7.5-325MG [[place] 7.5-325] 1 each PO Q6HR PRN #12 tab 10/21/23 [Rx] Follow up Appointment(s)/Referral(s): Durga Negrete MD [Primary Care Provider] - 1-2 days Discharge Disposition: TRANSFER TO SNF/ECF
[2023-10-21 12:29] LABS: Glucose,Whole Blood 115 mg/dL (70-110)
[2023-10-21 13:45] VITALS: BP 99/64; PULSE 82; TEMP 98.7
--- NOTE | 2023-10-21 13:49 | P.PN ---
Subjective Patient is seen for follow-up for end-stage renal disease. Patient is temporarily switched to hemodialysis while in rehab. She will be dialyzed tomorrow. No significant complaints. Objective - Vital Signs Vital signs: Vital Signs Temp 98.7 F 10/21/23 13:42 Pulse 82 10/21/23 13:42 Resp 16 10/21/23 13:42 BP 99/64 10/21/23 13:42 Pulse Ox 98 10/21/23 13:42 FiO2 Intake & Output 10/20/23 10/21/23 10/21/23 18:59 06:59 18:59 Intake Total 240 120 Balance 240 120 Intake: Oral 240 120 Other: Voiding Method Toilet Toilet Toilet # Voids 1 0 - Exam On examination patient is awake, comfortable, no acute distress Examination of the heart S1 and S2 Examination of the lungs bilateral breath sounds are heard Abdomen is soft nontender Examination of lower extremities shows no significant edema - Labs CBC & Chem 7: 10/21/23 07:19 10/21/23 07:19 Labs: Abnormal Lab Results - Last 24 Hours (Table) 10/21/23 10/21/23 10/21/23 Range/Units 07:19 07:19 12:09 RBC 2.73 L (3.80-5.40) m/uL Hgb 7.9 L (11.4-16.0) gm/dL Hct 23.2 L (34.0-46.0) % Sodium 125 L (137-145) mmol/L Chloride 95 L (98-107) mmol/L BUN 32 H (7-17) mg/dL Creatinine 6.70 H (0.52-1.04) mg/dL POC Glucose (mg/dL) 115 H (70-110) mg/dL Assessment and Plan Assessment: 1. ESRD on PD. 2. Generalized debility. 3. CKD-MBD. Phosphorus level 5.9 dated October 17, 2023. On PhosLo. 4. Hx SLE - not on meds. 5. Anemia of CKD. Iron replete. 6. Recent seizure on keppra. 7. Hyponatremia secondary to CKD. Plan: Hemodialysis in a.m. if not discharged today
--- NOTE | 2023-10-24 08:50 | CDI ---
Documentation Clarification Form Date: 10/24/2023 08:29:32 AM From: Natalie Lynch Admit Date: 10/17/2023 12:02:00 PM Patient Name: Catina Hwang Visit Number: [id number] Discharge Date: 10/21/2023 06:47:00 PM ATTENTION: The Clinical Documentation Specialists (CDI) and [facility] Coding Staff appreciate your assistance in clarifying documentation. Please respond to the clarification below the line at the bottom and electronically sign. The CDI & [facility] Coding staff will review the response and follow-up if needed. Please note: Queries are made part of the Legal Health Record. If you have any questions, please contact the author of this message via ITS. Dr. Jordy James, Your patient has troponin level(s) of: 10/16 0.074, 0.070, 0.077. Please clarify if there is an additional diagnosis and/or clinical significance related to this value. Patient history/risk factors: CAD w stent, old DC, HTN w ESRD, anemia in CKD, SLE, renal dialysis Clinical indicators: Patient has an acute diagnosis of generalized weakness with elevatedtroponinthat poses a threat to life or bodily function. Troponin elevation: Troponin flat. LikelyleakfromCKD.ACSruled out. Treatment: Serial troponins Is there an additional diagnosis and/or clinical significance related to the above lab result/information: [ ] Type 2 DC due to (specify cause ____) [ ] Non-ischemic with acute myocardial injury [ x ] No additional diagnosis/Not clinically significant [ ] Other, please specify [ ] Unable to determine Reference: [employer] Fourth [place] Definition of Myocardial Infraction Elevated Cardiac Troponin >99th percentile with Troponin rise and/or fall With Acute ischemia Acute Myocardial Infarction Atherosclerosis thrombosis Type I DC Oxygen supply and demand imbalance Type II DC (Please indicate etiology) Without acute ischemia Acute Myocardial Injury MTDD
== END 2023-10-21 18:47 | DRG 640 ==
LOC: EC 09:00 → 3SCARD 13:36 → 5NMEDONC 10-17 10:22 → OBSVTOIN 10-17 12:02 → 5NMEDONC 10-17 12:25
PROVIDERS: ADMIT Internal Medicine; ATTEND Internal Medicine
PROC: 3E1M39Z Irrigation of Peritoneal Cavity using Dialysate, Percutaneous Approach (ICD-10-PCS; principal; 2023-10-17)
PROC: 02HV33Z Insertion of Infusion Device into Superior Vena Cava, Percutaneous Approach (ICD-10-PCS; 2023-10-18 14:10)
PROC: 5A1D70Z Performance of Urinary Filtration, Intermittent, Less than 6 Hours Per Day (ICD-10-PCS; 2023-10-19)
DX: E87.1 Hypo-osmolality and hyponatremia (principal); N18.6 End stage renal disease; I12.0 Hypertensive chronic kidney disease with stage 5 chronic kidney disease or end stage renal disease; D63.1 Anemia in chronic kidney disease; E83.9 Disorder of mineral metabolism, unspecified; M32.9 Systemic lupus erythematosus, unspecified; Z99.2 Dependence on renal dialysis; G40.909 Epilepsy, unspecified, not intractable, without status epilepticus; F32.A Depression, unspecified; L29.9 Pruritus, unspecified; E78.5 Hyperlipidemia, unspecified; F41.9 Anxiety disorder, unspecified; H54.8 Legal blindness, as defined in USA; I25.10 Atherosclerotic heart disease of native coronary artery without angina pectoris; I25.2 Old myocardial infarction; I44.0 Atrioventricular block, first degree; R74.01 Elevation of levels of liver transaminase levels; Z79.818 Long term (current) use of other agents affecting estrogen receptors and estrogen levels; Z79.899 Other long term (current) drug therapy; Z86.73 Personal history of transient ischemic attack (TIA), and cerebral infarction without residual deficits; Z95.5 Presence of coronary angioplasty implant and graft; Z86.718 Personal history of other venous thrombosis and embolism; Z88.1 Allergy status to other antibiotic agents; Z88.8 Allergy status to other drugs, medicaments and biological substances
CPT/HCPCS: 36415; 36558; 71046; 76937; 77001; 80048; 80053; 82607; 82728; 82746; 83540; 83550; 83605; 83735; 84100; 84443; 84484; 85025; 85027; 85610; 85730; 86706; 87340; 87636; 90935; 93005; 96372; 99285

== ENCOUNTER 2023-11-12 00:19 | Emergency (ER) | payer MEDICARE ==
[2023-11-12 00:56] VITALS: RESP 16
--- NOTE | 2023-11-12 01:08 | ED ---
General Adult HPI - General Chief complaint: Fall Stated complaint: weakness Time Seen by Provider: 11/12/23 00:22 Source: patient, EMS, RN notes reviewed, old records reviewed Mode of arrival: EMS - History of Present Illness Initial comments: 68-year-old female presents from the assisted after fall with minor head trauma. Patient has felt weak and apparently has had several falls over the past 24 hours. Patient denies significant pain complaint. She states she did hit her head but did not lose consciousness. She denies anticoagulation. She is on hemodialysis and received dialysis today. No chest or abdominal pain. No fever. - Related Data Home Medications Medication Instructions Recorded Confirmed Atorvastatin [Lipitor] 80 mg PO HS 01/04/22 10/16/23 Calcium Acetate [PhosLo] 1,334 mg PO DAILY PRN 09/29/23 10/16/23 Calcium Acetate [PhosLo] 1,334 mg PO TID-W/MEALS 09/29/23 10/16/23 Furosemide [Lasix] 80 mg PO DAILY 09/29/23 10/16/23 Lactulose 20 gm PO DAILY PRN 09/29/23 10/16/23 Megestrol [Megace] 40 mg PO DAILY 09/29/23 10/16/23 Midodrine [ProAmatine] 5 mg PO DAILY PRN 09/29/23 10/16/23 busPIRone HCl [Buspar] 5 mg PO BID 09/29/23 10/16/23 traZODone HCL [Desyrel] 50 mg PO HS 09/29/23 10/16/23 Previous Rx's Medication Instructions Recorded levETIRAcetam [Keppra] 500 mg PO Q12HR 90 Days #180 tab 09/30/23 FLUoxetine HCL [PROzac] 20 mg PO DAILY #0 10/02/23 HYDROcodone/APAP 7.5-325MG [[place] 1 each PO Q6HR PRN #12 tab 10/21/23 7.5-325] Allergies Allergy/AdvReac Type Severity Reaction Status Date / Time carbamazepine [From Tegretol] Allergy Unknown Verified 11/12/23 00:28 gentamicin Allergy Rash/Hives Verified 11/12/23 00:28 hydroxychloroquine Allergy CAUSED Verified 11/12/23 00:28 [From Plaquenil] BLINDNESS vancomycin Allergy Rash/Hives Verified 11/12/23 00:28 Review of Systems ROS Statement: Those systems with pertinent positive or pertinent negative responses have been documented in the HPI. ROS Other: All systems not noted in ROS Statement are negative. Past Medical History Past Medical History: CVA/TIA, Deep Vein Thrombosis (DVT), Eye Disorder, Hyperlipidemia, Hypertension, Myocardial Infarction (VT), Renal Disease, Seizure Disorder Additional Past Medical History / Comment(s): CVA-2018-NO RESIDUAL PROBLEMS. DVT BILAT LEGS. LEGALLY BLIND R/T PLAQUENIL. HX LUPUS. SEIZURE R/T LUPUS-LAST ONE 4-5 YEARS AGO Last Myocardial Infarction Date:: 2016 History of Any Multi-Drug Resistant Organisms: None Reported Past Surgical History: Heart Catheterization With Stent, Tonsillectomy Additional Past Surgical History / Comment(s): SKIN GRAFT FROM RT ARM TO RT LEG. COLONOSCOPY Past Anesthesia/Blood Transfusion Reactions: No Reported Reaction Date of Last Stent Placement:: 2016 Past Psychological History: Anxiety, Depression Smoking Status: Never smoker Past Alcohol Use History: Occasional Past Drug Use History: None Reported - Past Family History Father Family Medical History: Cancer General Exam General appearance: alert, in no apparent distress Head exam: Present: atraumatic, normocephalic Eye exam: Present: normal appearance, PERRL ENT exam: Present: normal exam Neck exam: Present: normal inspection. Absent: tenderness, meningismus Respiratory exam: Present: normal lung sounds bilaterally. Absent: respiratory distress, wheezes Cardiovascular Exam: Present: regular rate, normal rhythm GI/Abdominal exam: Present: soft. Absent: distended, tenderness, guarding Extremities exam: Present: normal inspection, normal capillary refill. Absent: pedal edema Neurological exam: Present: alert, oriented X3, CN II-XII intact. Absent: motor sensory deficit Psychiatric exam: Present: normal affect, normal mood Skin exam: Present: warm, dry, intact. Absent: cyanosis, diaphoretic Course Vital Signs 11/12/23 00:22 Temperature 98.3 F Pulse Rate 86 Respiratory 16 Rate Blood Pressure 142/96 O2 Sat by Pulse 97 Oximetry - Reevaluation(s) Reevaluation #1: 11/12/23 03:13 Patient eager for discharge, no complaints. Medical Decision Making - Medical Decision Making Was pt. sent in by a medical professional or institution (, PA, AIRPLANE TECHNICIAN, urgent care, hospital, or assisted...) When possible be specific @ -No Did you speak to anyone other than the patient for history (EMS, parent, family, police, friend...)? What history was obtained from this source @ -No Did you review nursing and triage notes (agree or disagree)? Why? @ -I reviewed and agree with nursing and triage notes Were old charts reviewed (outside hosp., previous admission, EMS record, old EKG, old radiological studies, urgent care reports/EKG's, assisted records)? Report findings @ -No old charts were reviewed Differential Diagnosis (chest pain, altered mental status, abdominal pain women, abdominal pain men, vaginal bleeding, weakness, fever, dyspnea, syncope, headache, dizziness, GI bleed, back pain, seizure, CVA, palpatations, mental health, musculoskeletal)? @ -Differential Weakness: Hypoglycemia, shock, sepsis, hyponatremia, anemia, infection, VT, ETOH, adverse medicine reaction, overdose, stroke, this is not meant to be an all-inclusive list. EKG interpreted by me (3pts min.). @ -EKG: Sinus rhythm with first-degree AV block, rate of 84, VT interval 217, QRS duration 82, QTc [address] segment elevation. X-rays interpreted by me (1pt min.). @Chest x-ray negative for focal pneumonia, no pneumothorax, pelvis x-ray negative for fracture or dislocation CT interpreted by me (1pt min.). @ -[CT brain negative for intracranial hemorrhage or mass effect, showing volum e loss. CT cervical spine negative for fracture or subluxation. U/S interpreted by me (1pt. min.). @ -None done What testing was considered but not performed or refused? (CT, X-rays, U/S, labs)? Why? @ -None What meds were considered but not given or refused? Why? @ -None Did you discuss the management of the patient with other professionals (professionals i.e. , PA, AIRPLANE TECHNICIAN, lab, RT, psych nurse, social work instructor, planograph operator, teacher, command center officer, therapeutic case manager)? Give summary @ -No Was smoking cessation discussed for >3mins.? @ -No Was critical care preformed (if so, how long)? @ -No Were there social determinants of health that impacted care today? How? (Homelessness, low income, unemployed, alcoholism, drug addiction, transportation, low edu. Level, literacy, decrease access to med. care, long term, rehab)? @ -No Was there de-escalation of care discussed even if they declined (Discuss DNR or withdrawal of care, Hospice)? DNR status @ -No What co-morbidities impacted this encounter? (DM, HTN, Smoking, COPD, CAD, Cancer, CVA, ARF, Chemo, Hep., AIDS, mental health diagnosis, sleep apnea, morbid obesity)? @ -[End-stage renal disease on hemodialysis. Was patient admitted / discharged? Hospital course, mention meds given and route, prescriptions, significant lab abnormalities, going to OR and other pertinent info. @ -68-year-old female with fall from wheelchair, no significant injury, sent in for evaluation with additional complaint of weakness. Patient's laboratory testing is has stable chronic abnormalities. Head CT chest x-ray and pelvis x- ray are negative for traumatic injury. Patient eager for discharge. Will return to the assisted. Undiagnosed new problem with uncertain prognosis? @ -No Drug Therapy requiring intensive monitoring for toxicity (Heparin, Nitro, Insulin, Cardizem)? @ -No Were any procedures done? @ -No Diagnosis/symptom? @ -Fall, weakness Acute, or Chronic, or Acute on Chronic? @ -Acute on chronic Uncomplicated (without systemic symptoms) or Complicated (systemic symptoms)? @ -Default Side effects of treatment? @ -No Exacerbation, Progression, or Severe Exacerbation? @ -No Poses a threat to life or bodily function? How? (Chest pain, USA, VT, pneumonia, PE, COPD, DKA, ARF, appy, cholecystitis, CVA, Diverticulitis, Homicidal, Suic idal, threat to staff... and all critical care pts) @Moderate risk - Lab Data Result diagrams: 11/12/23 01:17 11/12/23 01:17 Lab Results 11/12/23 11/12/23 Range/Units 01:17 01:17 WBC 3.7 L (3.8-10.6) k/uL RBC 2.59 L (3.80-5.40) m/uL Hgb 7.7 L (11.4-16.0) gm/dL Hct 22.3 L (34.0-46.0) % MCV 86.1 (80.0-100.0) fL MCH 29.6 (25.0-35.0) pg MCHC 34.4 (31.0-37.0) g/dL RDW 16.8 H (11.5-15.5) % Plt Count 220 (150-450) k/uL MPV 7.7 Neutrophils % 58 % Lymphocytes % 26 % Monocytes % 9 % Eosinophils % 4 % Basophils % 0 % Neutrophils # 2.2 (1.3-7.7) k/uL Lymphocytes # 1.0 (1.0-4.8) k/uL Monocytes # 0.3 (0-1.0) k/uL Eosinophils # 0.2 (0-0.7) k/uL Basophils # 0.0 (0-0.2) k/uL Poikilocytosis Slight Anisocytosis Slight Sodium 132 L (137-145) mmol/L Potassium 3.2 L (3.5-5.1) mmol/L Chloride 99 (98-107) mmol/L Carbon Dioxide 33 H (22-30) mmol/L Anion Gap 0 mmol/L BUN 11 (7-17) mg/dL Creatinine 3.17 H (0.52-1.04) mg/dL Est GFR (CKD-EPI)AfAm 16 (>60 ml/min/1.73 sqM) Est GFR (CKD-EPI)NonAf 14 (>60 ml/min/1.73 sqM) Glucose 85 (74-99) mg/dL Calcium 8.5 (8.4-10.2) mg/dL Magnesium 2.4 H (1.6-2.3) mg/dL Total Bilirubin 0.8 (0.2-1.3) mg/dL AST 41 H (14-36) U/L ALT 19 (4-34) U/L Alkaline Phosphatase 89 (38-126) U/L Total Protein 5.1 L (6.3-8.2) g/dL Albumin 2.5 L (3.5-5.0) g/dL Disposition Clinical Impression: Fall, Weakness Disposition: HOME SELF-CARE Condition: Fair Instructions (If sedation given, give patient instructions): Fall Prevention for Older Adults (ED) Is patient prescribed a controlled substance at d/c from ED?: No Referrals: Durga Negrete MD [Primary Care Provider] - 1-2 days Time of Disposition: 02:59
[2023-11-12 01:26] LABS: Anisocytosis Slight; Basophils % (A) 0 %; Eosinophils # (A) 0.2 k/uL (0-0.7); Eosinophils % (A) 4 %; HCT 22.3 % (34.0-46.0); HGB 7.7 gm/dL (11.4-16.0); Lymphocytes % (A) 26 %; MCH 29.6 pg (25.0-35.0); MCHC 34.4 g/dL (31.0-37.0); MCV 86.1 fL (80.0-100.0); Mean Platelet Volume 7.7; Monocytes # (A) 0.3 k/uL (0-1.0); Monocytes % (A) 9 %; Neutrophils # (A) 2.2 k/uL (1.3-7.7); Neutrophils % (A) 58 %; Platelet Count 220 k/uL (150-450); Poikilocytosis Slight; RBC 2.59 m/uL (3.80-5.40); RDW 16.8 % (11.5-15.5); WBC 3.7 k/uL (3.8-10.6)
[2023-11-12 01:48] LABS: ALT 19 U/L (4-34); AST 41 U/L (14-36); African American GFR (CKD) 16 (>60 ml/min/1.73 sqM); Albumin 2.5 g/dL (3.5-5.0); Alkaline Phosphatase 89 U/L (38-126); Anion Gap 0 mmol/L; Blood Urea Nitrogen 11 mg/dL (7-17); Calcium 8.5 mg/dL (8.4-10.2); Carbon Dioxide 33 mmol/L (22-30); Chloride 99 mmol/L (98-107); Glucose 85 mg/dL (74-99); Magnesium 2.4 mg/dL (1.6-2.3); Non-African American GFR(CKD) 14 (>60 ml/min/1.73 sqM); Potassium 3.2 mmol/L (3.5-5.1); Sodium 132 mmol/L (137-145); Total Bilirubin 0.8 mg/dL (0.2-1.3); Total Protein 5.1 g/dL (6.3-8.2)
--- NOTE | 2023-11-12 02:43 | CT ---
EXAM: CT Head Without Intravenous Contrast CLINICAL HISTORY: ITS.REASON CT Reason: fall TECHNIQUE: Axial computed tomography images of the head/brain without intravenous contrast. CTDI is 45.2 mGy and DLP is 1007.5 mGy-cm. This CT exam was performed using one or more of the following dose reduction techniques: automated exposure control, adjustment of the mA and/or kV according to patient size, and/or use of iterative reconstruction technique. COMPARISON: 10/10/2023 FINDINGS: Brain: No hemorrhage or mass effect. Chronic white matter changes and prior infarcts again seen. Ventricles: No hydrocephalus. Bones/joints: Chronic left nasal bone fracture. Soft tissues: Unremarkable. Sinuses: Right maxillary sinus air fluid level. Mastoid air cells: Clear. IMPRESSION: No acute hemorrhage, hydrocephalus, or mass effect. EXAM: CT Cervical Spine Without Intravenous Contrast CLINICAL HISTORY: ITS.REASON CT Reason: fall TECHNIQUE: Axial computed tomography images of the cervical spine without intravenous contrast. CTDI is 9.2 mGy and DLP is 258.6 mGy-cm. This CT exam was performed using one or more of the following dose reduction techniques: automated exposure control, adjustment of the mA and/or kV according to patient size, and/or use of iterative reconstruction technique. COMPARISON: No relevant prior studies available. FINDINGS: Vertebrae: No acute fracture. Discs/spinal canal/neural foramina: degenerative changes. Soft tissues: No prevertebral swelling. IMPRESSION: No acute fracture or subluxation.
--- NOTE | 2023-11-12 03:07 | XR ---
EXAM: XR Pelvis, 1 or 2 Views CLINICAL HISTORY: ITS.REASON XR Reason: fall TECHNIQUE: Frontal view of the pelvis. COMPARISON: No relevant prior studies available. FINDINGS: Bones/joints: No acute fracture. No dislocation. Mild bilateral hip osteoarthrosis. Soft tissues: Unremarkable. IMPRESSION: No acute findings.
--- NOTE | 2023-11-12 03:09 | XR ---
EXAM: XR Chest, 1 View CLINICAL HISTORY: ITS.REASON XR Reason: fall TECHNIQUE: Frontal view of the chest. COMPARISON: 10/18/2023 FINDINGS: Lungs: No consolidation or mass. Slightly prominent interstitial markings. Pleural space: No acute findings Heart: cardiomegaly. Bones/joints: Right AC joint appears widened to 9 mm on this view. IMPRESSION: Right AC joint appears widened to 9 mm on this view. Correlate with AC joint separation or it may be projectional
[2023-11-12 04:45] VITALS: BP 152/73; PULSE 88; TEMP 98.2
== END 2023-11-12 04:02 | disposition home or self-care (01) ==
LOC: EC 00:19
DX: S09.90XA Unspecified injury of head, initial encounter (principal); R53.1 Weakness; I44.0 Atrioventricular block, first degree; I12.0 Hypertensive chronic kidney disease with stage 5 chronic kidney disease or end stage renal disease; N18.6 End stage renal disease; Z88.1 Allergy status to other antibiotic agents; Z88.8 Allergy status to other drugs, medicaments and biological substances; Z99.2 Dependence on renal dialysis; W05.0XXA Fall from non-moving wheelchair, initial encounter; Y92.129 Unspecified place in nursing home as the place of occurrence of the external cause
CPT/HCPCS: 36415; 70450; 71045; 72125; 72170; 80053; 83735; 85025; 93005; 99284

== ENCOUNTER 2023-11-15 19:29 | Emergency (ER) | payer MEDICARE ==
[2023-11-15 19:54] VITALS: BP 147/80; PULSE 80; RESP 17; TEMP 98.9
[2023-11-15 20:02] LABS: Anisocytosis Slight; Basophils % (A) 0 %; Eosinophils # (A) 0.1 k/uL (0-0.7); Eosinophils % (A) 1 %; HCT 22.5 % (34.0-46.0); HGB 7.4 gm/dL (11.4-16.0); Lymphocytes # (A) 1.5 k/uL (1.0-4.8); Lymphocytes % (A) 23 %; MCH 28.8 pg (25.0-35.0); MCHC 32.8 g/dL (31.0-37.0); MCV 87.9 fL (80.0-100.0); Mean Platelet Volume 7.6; Monocytes # (A) 0.5 k/uL (0-1.0); Monocytes % (A) 7 %; Neutrophils # (A) 4.5 k/uL (1.3-7.7); Neutrophils % (A) 67 %; Platelet Count 264 k/uL (150-450); Poikilocytosis Slight; RBC 2.56 m/uL (3.80-5.40); RDW 18.4 % (11.5-15.5); WBC 6.7 k/uL (3.8-10.6)
[2023-11-15 20:20] LABS: ALT 19 U/L (4-34); AST 42 U/L (14-36); African American GFR (CKD) 30 (>60 ml/min/1.73 sqM); Albumin 2.9 g/dL (3.5-5.0); Alkaline Phosphatase 96 U/L (38-126); Anion Gap 4 mmol/L; Blood Urea Nitrogen 3 mg/dL (7-17); Calcium 8.8 mg/dL (8.4-10.2); Carbon Dioxide 34 mmol/L (22-30); Chloride 98 mmol/L (98-107); Glucose 106 mg/dL (74-99); Non-African American GFR(CKD) 26 (>60 ml/min/1.73 sqM); Potassium 3.3 mmol/L (3.5-5.1); Sodium 136 mmol/L (137-145); Total Bilirubin 0.8 mg/dL (0.2-1.3); Total Protein 5.7 g/dL (6.3-8.2)
--- NOTE | 2023-11-15 20:59 | ED ---
General Adult HPI - General Chief complaint: Recheck/Abnormal Lab/Rx Stated complaint: Low Hemoglobin Time Seen by Provider: 11/15/23 19:40 Source: patient, EMS Mode of arrival: EMS - History of Present Illness Initial comments: 68-year-old female presents to the emergency department from [facility]. Patient does do dialysis. States that she was having her laboratory studies checked today because of the dialysis. They found that she had low hemoglobin and then transferred her to the hospital. She denies any active bleeding. No dark or bloody stools. Denies hematemesis. No epistaxis. No dysuria or hematuria. Patient admits that she has been chronically weak since she was hospitalized however denies any acute changes in her weakness. No fevers. No shortness of breath. No other alleviating, precipitating modifying factors - Related Data Home Medications Medication Instructions Recorded Confirmed Atorvastatin [Lipitor] 80 mg PO HS@209901/04/22 11/15/23 Calcium Acetate [PhosLo] 1,334 mg PO MOWEFR@0600,1700 09/29/23 11/15/23 Calcium Acetate [PhosLo] 1,334 mg PO SUTUTHSA@06,12,17 PRN 09/29/23 11/15/23 Furosemide [Lasix] 80 mg PO DAILY@0609/29/23 11/15/23 Lactulose 20 gm PO DAILY PRN 09/29/23 11/15/23 Megestrol [Megace] 40 mg PO DAILY@0600 09/29/23 11/15/23 Midodrine [ProAmatine] 5 mg PO DAILY PRN 09/29/23 11/15/23 busPIRone HCl [Buspar] 5 mg PO BID@0600,209909/29/23 11/15/23 traZODone HCL [Desyrel] 50 mg PO HS@209909/29/23 11/15/23 Ascorbic Acid [Vitamin C] 500 mg PO HS@209911/15/23 11/15/23 Calcium Acetate [Phoslo] 1,334 mg PO DAILY PRN 11/15/23 11/15/23 Cholecalciferol [Vitamin D3 (25 50 mcg PO HS@209911/15/23 11/15/23 Mcg = 1000 Iu)] FLUoxetine HCL [PROzac] 40 mg PO HS@209911/15/2324 HYDROcodone/APAP 7.5-325MG [[place] 1 tab PO Q6HR PRN 11/15/23 11/15/23 7.5-325] Zinc Gluconate [Zinc] 50 mg PO HS@2100 11/15/23 11/15/23 clonazePAM [KlonoPIN] 0.5 mg PO BID 11/15/23 11/15/23 diphenhydrAMINE HCL [Benadryl] 25 mg PO Q6H PRN 11/15/23 11/15/23 levETIRAcetam [Keppra] 500 mg PO BID@0600,1800 11/15/23 11/15/23 Allergies Allergy/AdvReac Type Severity Reaction Status Date / Time carbamazepine [From Tegretol] Allergy Unknown Verified 11/15/23 20:05 gentamicin Allergy Rash/Hives Verified 11/15/23 20:05 hydroxychloroquine Allergy CAUSED Verified 11/15/23 20:05 [From Plaquenil] BLINDNESS vancomycin Allergy Rash/Hives Verified 11/15/23 20:05 Review of Systems ROS Statement: Those systems with pertinent positive or pertinent negative responses have been documented in the HPI. ROS Other: All systems not noted in ROS Statement are negative. Past Medical History Past Medical History: CVA/TIA, Deep Vein Thrombosis (DVT), Eye Disorder, Hyperlipidemia, Hypertension, Myocardial Infarction ([place]), Renal Disease, Seizure Disorder Additional Past Medical History / Comment(s): CVA-2018-NO RESIDUAL PROBLEMS. DVT BILAT LEGS. LEGALLY BLIND R/T PLAQUENIL. HX LUPUS. SEIZURE R/T LUPUS-LAST ONE 4-5 YEARS AGO Last Myocardial Infarction Date:: 2016 History of Any Multi-Drug Resistant Organisms: None Reported Past Surgical History: Heart Catheterization With Stent, Tonsillectomy Additional Past Surgical History / Comment(s): SKIN GRAFT FROM RT ARM TO RT LEG. COLONOSCOPY Past Anesthesia/Blood Transfusion Reactions: No Reported Reaction Date of Last Stent Placement:: 2016 Past Psychological History: Anxiety, Depression Smoking Status: Never smoker Past Alcohol Use History: Occasional Past Drug Use History: None Reported - Past Family History Father Family Medical History: Cancer General Exam General appearance: alert, in no apparent distress Head exam: Present: atraumatic, normocephalic, normal inspection Eye exam: Present: normal appearance, PERRL, EOMI. Absent: scleral icterus, conjunctival injection, periorbital swelling ENT exam: Present: normal exam, mucous membranes moist Neck exam: Present: normal inspection. Absent: tenderness, meningismus, lymphadenopathy Respiratory exam: Present: normal lung sounds bilaterally. Absent: respiratory distress, wheezes, rales, rhonchi, stridor Cardiovascular Exam: Present: regular rate, normal rhythm, normal heart sounds. Absent: systolic murmur, diastolic murmur, rubs, gallop, clicks GI/Abdominal exam: Present: soft, normal bowel sounds. Absent: distended, tenderness, guarding, rebound, rigid Extremities exam: Present: normal inspection, full ROM, normal capillary refill. Absent: tenderness, pedal edema, joint swelling, calf tenderness Back exam: Present: normal inspection Neurological exam: Present: alert, oriented X3, CN II-XII intact Psychiatric exam: Present: normal affect, normal mood Skin exam: Present: warm, dry, intact, normal color. Absent: rash Course Vital Signs 11/15/23 11/15/23 19:30 19:50 Temperature 98.9 F Pulse Rate 89 80 Respiratory 17 17 Rate Blood Pressure 143/100 147/80 O2 Sat by Pulse 98 99 Oximetry Medical Decision Making - Medical Decision Making Was pt. sent in by a medical professional or institution (, PA, MANAGER USER EXPERIENCE, urgent care, hospital, or alf...) When possible be specific @ -Patient sent in from [facility] Did you speak to anyone other than the patient for history (EMS, parent, family, police, friend...)? What history was obtained from this source @ -Spoke with EMS for history Did you review nursing and triage notes (agree or disagree)? Why? @ -I reviewed and agree with nursing and triage notes Were old charts reviewed (outside hosp., previous admission, EMS record, old EKG, old radiological studies, urgent care reports/EKG's, alf records)? Report findings @ -I reviewed patient's blood work that was completed last on the patient which is sent to me by [facility] Differential Diagnosis (chest pain, altered mental status, abdominal pain women, abdominal pain men, vaginal bleeding, weakness, fever, dyspnea, syncope, headache, dizziness, GI bleed, back pain, seizure, CVA, palpatations, mental health, musculoskeletal)? @ -Lab error, GI bleed, multiple myeloma, leukemia EKG interpreted by me (3pts min.). @ -Yes and demonstrates sinus rhythm with a rate of 89. GA interval 230. QRS 90. QTc of 437. No acute ST segment elevations or depressions X-rays interpreted by me (1pt min.). @ -None done CT interpreted by me (1pt min.). @ -None done U/S interpreted by me (1pt. min.). @ -None done What testing was considered but not performed or refused? (CT, X-rays, U/S, labs)? Why? @ -None What meds were considered but not given or refused? Why? @ -None Did you discuss the management of the patient with other professionals (professionals i.e. , PA, MANAGER USER EXPERIENCE, lab, RT, psych nurse, social media assistant, microsoft solutions architect, teacher, juvenile officer, test case developer)? Give summary @ -No Was smoking cessation discussed for >3mins.? @ -No Was critical care preformed (if so, how long)? @ -No Were there social determinants of health that impacted care today? How? (Homelessness, low income, unemployed, alcoholism, drug addiction, transportation, low edu. Level, literacy, decrease access to med. care, [facility], rehab)? @ -Patient is currently in [facility] Was there de-escalation of care discussed even if they declined (Discuss DNR or withdrawal of care, Hospice)? DNR status @ -No What co-morbidities impacted this encounter? (DM, HTN, Smoking, COPD, CAD, Cancer, CVA, ARF, Chemo, Hep., AIDS, mental health diagnosis, sleep apnea, morbid obesity)? @ -CVA, renal disease Was patient admitted / discharged? Hospital course, mention meds given and route, prescriptions, significant lab abnormalities, going to OR and other pertinent info. @ -Upon arrival patient seen and evaluated in room 6. Thorough history and physical exam was performed. We did conduct laboratory studies. Patient's hemoglobin is 7.4. This is stable and consistent with patient's previous hemoglobins. Likely the patient had lab or draw error with her previous sample. Patient is asymptomatic and therefore will be discharged back to rehab. Patient transported back via EMS Undiagnosed new problem with uncertain prognosis? @ -No Drug Therapy requiring intensive monitoring for toxicity (Heparin, Nitro, Insulin, Cardizem)? @ -No Were any procedures done? @ -No Diagnosis/symptom? @ -Chronic anemia Acute, or Chronic, or Acute on Chronic? @ -Chronic Uncomplicated (without systemic symptoms) or Complicated (systemic symptoms)? @ -Complicated Side effects of treatment? @ -No Exacerbation, Progression, or Severe Exacerbation? @ -No Poses a threat to life or bodily function? How? (Chest pain, [place], [place], pneumonia, PE, COPD, DKA, ARF, appy, cholecystitis, CVA, Diverticulitis, Homicidal, Suicidal, threat to staff... and all critical care pts) @ -No - Lab Data Result diagrams: 11/15/23 19:45 11/15/23 19:45 Lab Results 11/15/23 11/15/23 11/15/23 Range/Units 19:38 19:43 19:45 WBC 6.7 (3.8-10.6) k/uL RBC 2.56 L (3.80-5.40) m/uL Hgb 7.4 L (11.4-16.0) gm/dL Hct 22.5 L (34.0-46.0) % MCV 87.9 (80.0-100.0) fL MCH 28.8 (25.0-35.0) pg MCHC 32.8 (31.0-37.0) g/dL RDW 18.4 H (11.5-15.5) % Plt Count 264 (150-450) k/uL MPV 7.6 Neutrophils % 67 % Lymphocytes % 23 % Monocytes % 7 % Eosinophils % 1 % Basophils % 0 % Neutrophils # 4.5 (1.3-7.7) k/uL Lymphocytes # 1.5 (1.0-4.8) k/uL Monocytes # 0.5 (0-1.0) k/uL Eosinophils # 0.1 (0-0.7) k/uL Basophils # 0.0 (0-0.2) k/uL Poikilocytosis Slight Anisocytosis Slight Sodium (137-145) mmol/L Potassium (3.5-5.1) mmol/L Chloride (98-107) mmol/L Carbon Dioxide (22-30) mmol/L Anion Gap mmol/L BUN (7-17) mg/dL Creatinine (0.52-1.04) mg/dL Est GFR (CKD-EPI)AfAm (>60 ml/min/1.73 sqM) Est GFR (CKD-EPI)NonAf (>60 ml/min/1.73 sqM) Glucose (74-99) mg/dL Calcium (8.4-10.2) mg/dL Total Bilirubin (0.2-1.3) mg/dL AST (14-36) U/L ALT (4-34) U/L Alkaline Phosphatase (38-126) U/L Total Protein (6.3-8.2) g/dL Albumin (3.5-5.0) g/dL Blood Type O Positive Blood Type Confirm O Positive Blood Type Recheck No Previous Record Bld Type Recheck Status CABO Indicated Antibody Screen NEGATIVE Spec Expiration Date 11/18/2023 - 234211/15/23 Range/Units 19:45 WBC (3.8-10.6) k/uL RBC (3.80-5.40) m/uL Hgb (11.4-16.0) gm/dL Hct (34.0-46.0) % MCV (80.0-100.0) fL MCH (25.0-35.0) pg MCHC (31.0-37.0) g/dL RDW (11.5-15.5) % Plt Count (150-450) k/uL MPV Neutrophils % % Lymphocytes % % Monocytes % % Eosinophils % % Basophils % % Neutrophils # (1.3-7.7) k/uL Lymphocytes # (1.0-4.8) k/uL Monocytes # (0-1.0) k/uL Eosinophils # (0-0.7) k/uL Basophils # (0-0.2) k/uL Poikilocytosis Anisocytosis Sodium 136 L (137-145) mmol/L Potassium 3.3 L (3.5-5.1) mmol/L Chloride 98 (98-107) mmol/L Carbon Dioxide 34 H (22-30) mmol/L Anion Gap 4 mmol/L BUN 3 L (7-17) mg/dL Creatinine 1.91 H (0.52-1.04) mg/dL Est GFR (CKD-EPI)AfAm 30 (>60 ml/min/1.73 sqM) Est GFR (CKD-EPI)NonAf 26 (>60 ml/min/1.73 sqM) Glucose 106 H (74-99) mg/dL Calcium 8.8 (8.4-10.2) mg/dL Total Bilirubin 0.8 (0.2-1.3) mg/dL AST 42 H (14-36) U/L ALT 19 (4-34) U/L Alkaline Phosphatase 96 (38-126) U/L Total Protein 5.7 L (6.3-8.2) g/dL Albumin 2.9 L (3.5-5.0) g/dL Blood Type Blood Type Confirm Blood Type Recheck Bld Type Recheck Status Antibody Screen Spec Expiration Date Disposition Clinical Impression: Anemia Disposition: HOME SELF-CARE Condition: Stable Instructions (If sedation given, give patient instructions): Anemia (ED) Additional Instructions: Your hemoglobin was 7.4. You do not need a transfusion today. Return for any new or worsening symptoms Is patient prescribed a controlled substance at d/c from ED?: No Referrals: Durga Negrete MD [Primary Care Provider] - 1-2 days Time of Disposition: 20:58
== END 2023-11-15 22:06 | disposition home or self-care (01) ==
LOC: EC 19:29
DX: D64.9 Anemia, unspecified (principal); N28.9 Disorder of kidney and ureter, unspecified; Z86.73 Personal history of transient ischemic attack (TIA), and cerebral infarction without residual deficits
CPT/HCPCS: 36415; 80053; 85025; 86850; 86900; 86901; 93005; 99284

== ENCOUNTER 2023-11-19 00:59 | Emergency (ER) | payer MEDICARE ==
--- NOTE | 2023-11-19 01:38 | ED ---
Fall HPI - General Chief Complaint: Fall Stated Complaint: Fall Time Seen by Provider: 11/19/23 01:02 Source: EMS Mode of arrival: EMS - History of Present Illness Initial Comments: This patient is 68-year-old woman transferred here from [facility] on the [facility], to have evaluation after having fallen. The patient had gotten up to use the bathroom and then fallen striking her left brow. The patient states that she is having 7 out of 10 left-sided headache. She has not noted any neurologic symptoms. There is no neck pain. MD Complaint: fall -: minutes(s) Fall From: standing When Fall Occurred: just prior to arrival Fall Witnessed: no Place Fall Occurred: shelter/SNF Loss of Consciousness: unsure Prolonged Down Time?: no Symptoms Prior to Fall: none Location: head Severity scale (1-10): 7 Quality: aching Associated Symptoms: headache - Related Data Home Medications Medication Instructions Recorded Confirmed Atorvastatin [Lipitor] 80 mg PO HS@209901/04/22 11/28/23 Calcium Acetate [PhosLo] 1,334 mg PO MOWEFR@0600,1700 09/29/23 11/28/23 Calcium Acetate [PhosLo] 1,334 mg PO SUTUTHSA@06,12,17 PRN 09/29/23 11/28/23 Furosemide [Lasix] 80 mg PO DAILY@0609/29/23 11/28/23 Lactulose 20 gm PO DAILY PRN 09/29/23 11/28/23 Megestrol [Megace] 40 mg PO DAILY@0600 09/29/23 11/28/23 Midodrine [ProAmatine] 5 mg PO DAILY PRN 09/29/23 11/28/23 busPIRone HCl [Buspar] 5 mg PO BID@0600,209909/29/23 11/28/23 traZODone HCL [Desyrel] 50 mg PO HS@209909/29/23 11/28/23 Ascorbic Acid [Vitamin C] 500 mg PO HS@209911/15/23 11/28/23 Calcium Acetate [Phoslo] 1,334 mg PO DAILY PRN 11/15/23 11/28/23 Cholecalciferol [Vitamin D3 (25 50 mcg PO HS@209911/15/23 11/28/23 Mcg = 1000 Iu)] FLUoxetine HCL [PROzac] 40 mg PO HS@2100 11/15/23 11/28/23 HYDROcodone/APAP 7.5-325MG [[place] 1 tab PO Q6HR PRN 11/15/23 11/28/23 7.5-325] Zinc Gluconate [Zinc] 50 mg PO HS@2100 11/15/23 11/28/23 clonazePAM [KlonoPIN] 0.5 mg PO BID 11/15/23 11/28/23 diphenhydrAMINE HCL [Benadryl] 25 mg PO Q6H PRN 11/15/23 11/28/23 levETIRAcetam [Keppra] 500 mg PO BID@0600,1800 11/15/23 11/28/23 Allergies Allergy/AdvReac Type Severity Reaction Status Date / Time carbamazepine [From Tegretol] Allergy Unknown Verified 11/28/23 10:03 gentamicin Allergy Rash/Hives Verified 11/28/23 10:03 hydroxychloroquine Allergy CAUSED Verified 11/28/23 10:03 [From Plaquenil] BLINDNESS vancomycin Allergy Rash/Hives Verified 11/28/23 10:03 Review of Systems ROS Statement: Those systems with pertinent positive or pertinent negative responses have been documented in the HPI. ROS Other: All systems not noted in ROS Statement are negative. Constitutional: Denies: fever, weakness Eyes: Denies: eye pain, vision change ENT: Denies: hearing loss, epistaxis Respiratory: Denies: cough Cardiovascular: Denies: chest pain, edema, syncope Gastrointestinal: Denies: abdominal pain, nausea, vomiting Genitourinary: Denies: dysuria, hematuria Musculoskeletal: Denies: back pain Skin: Denies: rash Neurological: Reports: headache. Denies: weakness, numbness, paresthesias, confusion Past Medical History Past Medical History: CVA/TIA, Deep Vein Thrombosis (DVT), Eye Disorder, Hyperlipidemia, Hypertension, Myocardial Infarction ([place]), Renal Disease, Seizure Disorder Additional Past Medical History / Comment(s): CVA-2018-NO RESIDUAL PROBLEMS. DVT BILAT LEGS. LEGALLY BLIND R/T PLAQUENIL. HX LUPUS. SEIZURE R/T LUPUS-LAST ONE 4-5 YEARS AGO Last Myocardial Infarction Date:: 2016 History of Any Multi-Drug Resistant Organisms: None Reported Past Surgical History: Heart Catheterization With Stent, Tonsillectomy Additional Past Surgical History / Comment(s): SKIN GRAFT FROM RT ARM TO RT LEG. COLONOSCOPY Past Anesthesia/Blood Transfusion Reactions: No Reported Reaction Date of Last Stent Placement:: 2016 Past Psychological History: Anxiety, Depression Smoking Status: Never smoker Past Alcohol Use History: Occasional Past Drug Use History: None Reported - Past Family History Father Family Medical History: Cancer General Exam General appearance: alert, in no apparent distress Head exam: Present: atraumatic, normocephalic Eye exam: Present: normal appearance. Absent: scleral icterus, conjunctival injection ENT exam: Present: normal oropharynx Neck exam: Present: tenderness (The patient does have moderate-sized left temporal area hematoma with moderate tenderness.), full ROM Respiratory exam: Present: normal lung sounds bilaterally. Absent: respiratory distress, wheezes, rales, rhonchi, stridor Cardiovascular Exam: Present: regular rate, normal rhythm, normal heart sounds. Absent: systolic murmur, diastolic murmur, rubs, gallop GI/Abdominal exam: Present: soft. Absent: distended, tenderness, guarding, rebound, rigid, mass Extremities exam: Present: normal inspection, normal capillary refill. Absent: pedal edema, calf tenderness Back exam: Present: normal inspection. Absent: CVA tenderness (R), CVA tenderness (L) Neurological exam: Present: alert, oriented X3, CN II-XII intact. Absent: motor sensory deficit Skin exam: Present: warm, dry, intact, normal color. Absent: rash Course Vital Signs 11/19/23 01:05 Temperature 99.8 F H Pulse Rate 74 Respiratory 18 Rate O2 Sat by Pulse 98 Oximetry Medical Decision Making - Medical Decision Making The patient is sent for CT as she does have moderate tenderness, in order to rule out cranial fracture. Was pt. sent in by a medical professional or institution (, PA, MANAGER DATA WAREHOUSE, urgent care, hospital, or shelter...) When possible be specific @ -Yes, patient sent from her long-term care facility to have evaluation for head injury Did you speak to anyone other than the patient for history (EMS, parent, family, police, friend...)? What history was obtained from this source @ -[No] Did you review nursing and triage notes (agree or disagree)? Why? @ -[I reviewed and agree with nursing and triage notes] Were old charts reviewed (outside hosp., previous admission, EMS record, old EKG, old radiological studies, urgent care reports/EKG's, shelter records)? Report findings @ -[No old charts were reviewed] Differential Diagnosis (chest pain, altered mental status, abdominal pain women, abdominal pain men, vaginal bleeding, weakness, fever, dyspnea, syncope, hea dache, dizziness, GI bleed, back pain, seizure, CVA, palpatations, mental health, musculoskeletal)? @ -[Differential contusion, ligament sprain, fracture, acute intracranial hemorrhage, tumor.... This is not meant to be in all inclusive list EKG interpreted by me (3pts min.). @ -[ X-rays interpreted by me (1pt min.). @ -[None done] CT interpreted by me (1pt min.). @ -[The patient had CT of the head which I interpreted as negative for acute bony injury and negative for acute intracranial hemorrhage U/S interpreted by me (1pt. min.). @ -[None done] What testing was considered but not performed or refused? (CT, X-rays, U/S, labs)? Why? @ -[None] What meds were considered but not given or refused? Why? @ -[None] Did you discuss the management of the patient with other professionals ( professionals i.e. , PA, MANAGER DATA WAREHOUSE, lab, RT, psych nurse, geriatric social worker, supervisor electric motor testing, teacher, chief compliance officer, case making machine operator)? Give summary @ -[No] Was smoking cessation discussed for >3mins.? @ -[No] Was critical care preformed (if so, how long)? @ -[No] Were there social determinants of health that impacted care today? How? (Homelessness, low income, unemployed, alcoholism, drug addiction, transportati on, low edu. Level, literacy, decrease access to med. care, senior care, rehab)? @ -[No] Was there de-escalation of care discussed even if they declined (Discuss DNR or withdrawal of care, Hospice)? DNR status @ -[No] What co-morbidities impacted this encounter? (DM, HTN, Smoking, COPD, CAD, Cancer, CVA, ARF, Chemo, Hep., AIDS, mental health diagnosis, sleep apnea, morbid obesity)? @ -[None] Was patient admitted / discharged? Hospital course, mention meds given and route, prescriptions, significant lab abnormalities, going to OR and other pertinent info. @ -[Patient is a 68-year-old woman here to have evaluation after fall with head injury. She is feeling better following reevaluation and stable for return to her long-term care facility. CT scan was obtained because she did have marked tenderness and there was concern for possible cranial fracture Undiagnosed new problem with uncertain prognosis? @ -[No] Drug Therapy requiring intensive monitoring for toxicity (Heparin, Nitro, Insulin, Cardizem)? @ -[No] Were any procedures done? @ -[No] Diagnosis/symptom? @ -Acute head injury with scalp contusion Acute, or Chronic, or Acute on Chronic? @ -[Acute Uncomplicated (without systemic symptoms) or Complicated (systemic symptoms)? @ -[Uncomplicated Side effects of treatment? @ -[No] Exacerbation, Progression, or Severe Exacerbation? @ -[No] Poses a threat to life or bodily function? How? (Chest pain, [place], [place], pneumonia, PE, COPD, DKA, ARF, appy, cholecystitis, CVA, Diverticulitis, Homicidal, Suicidal, threat to staff... and all critical care pts) @ -[No] - EKG Data -: EKG Interpreted by Me EKG shows normal: sinus rhythm (With frequent PVCs), intervals (DE interval 230 ms, consistent with a first-degree AV block. QRS 90 ms, QTc 447 ms, both normal.), QRS complexes (Voltage QRS complex.) Rate: normal (Rate 74 bpm) Interpretation: nonspecific ST-T wave changes Disposition Clinical Impression: Fall, Head injury due to trauma Disposition: HOME SELF-CARE Condition: Good Instructions (If sedation given, give patient instructions): Head Injury (DC), Fall Prevention (ED) Is patient prescribed a controlled substance at d/c from ED?: No Referrals: Durga Negrete MD [Primary Care Provider] - 1-2 days
[2023-11-19] MEDS: ACETAMINOPHEN TAB 325 MG TAB PO STA (01:45)
[2023-11-19 01:49] VITALS: PULSE 74; RESP 18; TEMP 99.8
--- NOTE | 2023-11-19 02:22 | CT ---
EXAM: CT Head Without Intravenous Contrast CLINICAL HISTORY: ITS.REASON CT Reason: fall injury TECHNIQUE: Axial computed tomography images of the head/brain without intravenous contrast. CTDI is 49.2 mGy and DLP is 1130.4 mGy-cm. This CT exam was performed using one or more of the following dose reduction techniques: automated exposure control, adjustment of the mA and/or kV according to patient size, and/or use of iterative reconstruction technique. COMPARISON: No relevant prior studies available. FINDINGS: Brain: No hemorrhage, herniation, or mass effect. Chronic microvascular ischemic changes. Multifocal encephalomalacia. Ventricles: No hydrocephalus. Age related cerebral volume loss. Bones/joints: Unremarkable. Soft tissues: Unremarkable. Sinuses: No air fluid levels. Mastoid air cells: Clear. IMPRESSION: No acute hemorrhage, hydrocephalus, or mass effect.
== END 2023-11-19 03:25 | disposition home or self-care (01) ==
LOC: EC 00:59
DX: S00.03XA Contusion of scalp, initial encounter (principal); Z88.1 Allergy status to other antibiotic agents; Z88.8 Allergy status to other drugs, medicaments and biological substances; Z86.73 Personal history of transient ischemic attack (TIA), and cerebral infarction without residual deficits; W18.30XA Fall on same level, unspecified, initial encounter; Y92.129 Unspecified place in nursing home as the place of occurrence of the external cause
CPT/HCPCS: 70450; 99284